=== PATIENT | female | born 1950 | race Caucasian/White ===

== ENCOUNTER → 2018-01-01 | Outpatient (CLI) | payer MEDICARE ==
--- NOTE | 2018-01-01 15:04 | Diagnostic Imaging Report ---
INDICATION: Pelvic pain. TECHNIQUE: Multiple Real-time grayscale images were obtained over the pelvis in Various projections transabdominally. COMPARISON: No prior studies available for comparison. FINDINGS: The uterus measures 6.5 x 3.4 x 2.8 cm. The endometrium is 3 mm in thickness. No uterine mass is detected. The ovaries were not visualized. No adnexal mass or free fluid is seen. IMPRESSION: Nonvisualized ovaries. No other significant abnormality is seen. Dictated by: Dictated on workstation # [id number]
== END ==
LOC: RAD 13:02
PROVIDERS: ATTEND Obstetrics & Gynecology
DX: R10.2 Pelvic and perineal pain (principal)
CPT/HCPCS: 76830; 76856

== ENCOUNTER 2018-02-04 05:34 | Outpatient (CLI) | payer MEDICARE ==
[~2018-02-04] VITALS: Ht 152.4 cm; Wt 69.4 kg
[2018-02-04] MEDS ORDERED: SERT100T8 PO (15:11)
[2018-02-04] MEDS ORDERED: BACL10TA PO (15:16)
[2018-02-04] MEDS ORDERED: LOVA20TA2 PO (15:16)
[2018-02-04] MEDS ORDERED: ALPR2TAB2 PO (15:16)
[2018-02-04] MEDS ORDERED: GABA600T PO (15:16)
== END 2018-02-04 15:17 ==
LOC: PREOP 05:34
PROVIDERS: ATTEND Surgery
DX: Z01.818 Encounter for other preprocedural examination (principal); R19.4 Change in bowel habit

== ENCOUNTER 2018-02-11 07:33 | Day surgery (SDC) | payer MEDICARE ==
[~2018-02-11] VITALS: Ht 152.4 cm; Wt 69.4 kg
[~2018-02-11 07:33] MED LIST: ALPR2TAB2 PO; BACL10TA PO; GABA600T PO; LOVA20TA2 PO; SERT100T8 PO
--- OUTSIDE RECORDS SUMMARY | 2018-02-11 07:36 | XMS REPORT ---
Author MARY JO Avila [facility] eClinicalWorks Address Unknown Phone Unavailable Care Team Providers Care Head Of Digital Advertising & Integration Name Role Phone MARY JO SALVADOR CP Unavailable Allergies, Adverse Reactions, Alerts Substance Reaction Event Type Tramadol HCl Info Not Available Drug Allergy Percocet Info Not Available Drug Allergy Morphine Sulfate Info Not Available Drug Allergy Hydrocodone-Acetaminophen Info Not Available Drug Allergy Fentanyl Info Not Available Drug Allergy Demerol Info Not Available Drug Allergy Problems Problem Type Condition Code Onset Dates Condition Status Assessment Neuropathy G62.9 Active Problem Neuropathy G62.9 Active Problem Depression F32.9 Active Assessment Arthritis M19.90 Active Assessment Anxiety F41.9 Active Problem Mixed hyperlipidemia E78.2 Active Problem Gastroesophageal reflux disease with esophagitis K21.0 Active Problem Arthritis M19.90 Active Problem Anxiety F41.9 Active Problem Lumbar disc disease M51.9 Active Problem Slow transit constipation K59.01 Active Problem Back pain M54.9 Active Medications Medication Code System Code Instructions Start Date End Date Status Dosage Zoloft [facility] 48959262217 100 MG Orally Once a day 2 tablet Omeprazole [facility] [address]-51 20 mg Orally Once a day May 02, 2016 1 capsule Celebrex [facility] [address]-55 200 mg Orally Once a day Sep 28, 2016 1 capsule Lovastatin [facility] 98889155496 40 mg Orally Once a day 1 tablet with a meal Xanax [facility] [address]-23 2 MG Orally 2 times a day, prn anxiety 1 tablet Gabapentin [facility] [address]-47 600 MG Orally 4 times a day 1 tablet Procedures Procedure Coding System Code Date Office Visit, Est Pt., Level 3 CPT-4 91779 Sep 28, 2016 [facility] VISIT ESTABLISHED PATIENT CPT-4 G0467 Sep 28, 2016 Vital Signs Date/Time: Sep 28, 2016 Cardiac Monitoring Heart Rate 78 bpm Weight 147.5 lbs Height 60 in BMI 28.80 Index Blood Pressure Diastolic 80 mmHg Blood Pressure Systolic 110 mmHg Results No Known Results Summary Purpose eClinicalWorks Submission
--- OUTSIDE RECORDS SUMMARY | 2018-02-11 07:36 | XMS REPORT ---
Author Author MARY JO SALVADOR [facility] Address [address] [place] [address] Care Team Providers Care Rail Signal Mechanic Name Role Phone MARY JO SALVADOR Unavailable PROBLEMS Type Condition ICD9-CM Code [id number] Code Onset Dates Condition Status SNOMED Code Problem Back pain M54.9 Active 006088712 Problem Depression F32.9 Active 82585957 Problem Neuropathy G62.9 Active 314909064 Problem Lumbar disc disease M51.9 Active 21549382 Problem Cervical disc disease M50.90 Active 307963598 Problem Arthritis M19.90 Active 3112011 Problem Slow transit constipation K59.01 Active 56344658 Problem Anxiety F41.9 Active 74425291 Problem Gastroesophageal reflux disease with esophagitis K21.0 Active 865301367 Problem Mixed hyperlipidemia E78.2 Active 686967671 ALLERGIES Unknown Allergies SOCIAL HISTORY No smoking Hx information available PLAN OF CARE VITAL SIGNS MEDICATIONS Medication Instructions Dosage Frequency Start Date End Date Duration Status Xanax 2 MG Orally 2 times a day, prn anxiety 1 tablet Active RESULTS No Results PROCEDURES No Known procedures IMMUNIZATIONS No Known Immunizations
--- OUTSIDE RECORDS SUMMARY | 2018-02-11 07:36 | XMS REPORT ---
Author Author MARY JO SALVADOR Organization eClinicalWorks Address Unknown Phone Unavailable Care Team Providers Care Ticket Printer Name Role Phone MARY JO SALVADOR CP Unavailable Allergies No Known Allergies Problems Problem Type Condition Code Onset Dates Condition Status Problem Depression F32.9 Active Problem Gastroesophageal reflux disease with esophagitis K21.0 Active Problem Slow transit constipation K59.01 Active Problem Mixed hyperlipidemia E78.2 Active Problem Lumbar disc disease M51.9 Active Problem Neuropathy G62.9 Active Problem Back pain M54.9 Active Problem Anxiety F41.9 Active Medications Medication Code System Code Instructions Start Date End Date Status Dosage [facility] [address]-24 350 MG Orally Four times a day 1 tablet as needed Results No Known Results Summary Purpose eClinicalWorks Submission
--- OUTSIDE RECORDS SUMMARY | 2018-02-11 07:36 | XMS REPORT ---
Author Author MARY JO SALVADOR [facility] Address [address] [place] [address] Care Team Providers Care Quality Process Engineer Name Role Phone MARY JO SALVADOR Unavailable PROBLEMS Type Condition ICD9-CM Code [id number] Code Onset Dates Condition Status SNOMED Code Problem Back pain M54.9 Active 766369544 Problem Depression F32.9 Active 82614206 Problem Neuropathy G62.9 Active 260163842 Problem Lumbar disc disease M51.9 Active 00026788 Problem Cervical disc disease M50.90 Active 602414038 Problem Arthritis M19.90 Active 1182706 Problem Slow transit constipation K59.01 Active 05447103 Problem Anxiety F41.9 Active 66677113 Problem Gastroesophageal reflux disease with esophagitis K21.0 Active 866565636 Problem Mixed hyperlipidemia E78.2 Active 810443267 ALLERGIES No Information SOCIAL HISTORY Never Assessed PLAN OF CARE VITAL SIGNS MEDICATIONS Medication Instructions Dosage Frequency Start Date End Date Duration Status Hydrocodone-Acetaminophen 5-325 MG Orally every 6 hrs 1 tablet as needed 6h April, Active RESULTS No Results PROCEDURES No Known procedures IMMUNIZATIONS No Known Immunizations MEDICAL (GENERAL) HISTORY Type Description Date Medical History Hyperlipemia Medical History Anxiety Medical History Chronic pain Medical History HX: breast cancer Medical History Hx of hepatitis C Surgical History Spine surgery 1999 Surgical History Right breast removed 2007 Surgical History Left breast removed 2009 Hospitalization History suicide attempts 1969, 2006 Hospitalization History Surgeries Hospitalization History Child
--- OUTSIDE RECORDS SUMMARY | 2018-02-11 07:37 | XMS REPORT ---
Author CLAUDIA Chaudhary Organization eClinicalWorks Address Unknown Phone Unavailable Care Team Providers Care Contract Preparer Name Role Phone CLAUDIA WILHELM CP Unavailable Allergies No Known Allergies Problems Problem Type Condition Code Onset Dates Condition Status Problem Anxiety F41.9 Active Problem Lumbar disc disease M51.9 Active Problem Back pain M54.9 Active Assessment Depression F32.9 Active Problem Neuropathy G62.9 Active Problem Depression F32.9 Active Medications No Known Medications Procedures Procedure Coding System Code Date Psychotherapy, patient &/family, 30 minutes, established patient CPT-4 49946 March 20, 2016 [facility] VISIT MENTAL HEALTH ESTAB PT CPT-4 G0470 March 20, 2016 Results No Known Results Summary Purpose eClinicalWorks Submission
--- OUTSIDE RECORDS SUMMARY | 2018-02-11 07:37 | XMS REPORT ---
Author Author MARY JO SALVADOR [facility] Address [address] [place] [address] Care Team Providers Care Bindery Manager Name Role Phone MARY JO SALVADOR Unavailable PROBLEMS Type Condition ICD9-CM Code [id number] Code Onset Dates Condition Status SNOMED Code Problem Back pain M54.9 Active 524478555 Problem Depression F32.9 Active 72564724 Problem Neuropathy G62.9 Active 322244551 Problem Lumbar disc disease M51.9 Active 63274946 Problem Cervical disc disease M50.90 Active 397239709 Problem Arthritis M19.90 Active 7279272 Problem Slow transit constipation K59.01 Active 21965664 Problem Anxiety F41.9 Active 33513702 Problem Gastroesophageal reflux disease with esophagitis K21.0 Active 211314640 Problem Mixed hyperlipidemia E78.2 Active 783301320 ALLERGIES No Information SOCIAL HISTORY Never Assessed PLAN OF CARE VITAL SIGNS MEDICATIONS Medication Instructions Dosage Frequency Start Date End Date Duration Status Xanax 2 MG Orally 2 times a day 1 tablet 12h 30 days Active RESULTS No Results PROCEDURES No Known [...]
--- OUTSIDE RECORDS SUMMARY | 2018-02-11 07:37 | XMS REPORT ---
Author Author MARY JO SALVADOR [facility] Address [address] [place] [address] Care Team Providers Care Sr Account Executive Name Role Phone MARY JO SALVADOR Unavailable PROBLEMS Type Condition ICD9-CM Code [id number] Code Onset Dates Condition Status SNOMED Code Problem Back pain M54.9 Active 958577930 Problem Depression F32.9 Active 08589849 Problem Neuropathy G62.9 Active 849966784 Problem Lumbar disc disease M51.9 Active 02246157 Problem Cervical disc disease M50.90 Active 256358659 Problem Arthritis M19.90 Active 8011841 Problem Slow transit constipation K59.01 Active 99177862 Problem Anxiety F41.9 Active 08382266 Problem Gastroesophageal reflux disease with esophagitis K21.0 Active 245632089 Problem Mixed hyperlipidemia E78.2 Active 308687365 ALLERGIES No Information SOCIAL HISTORY Never Assessed PLAN OF CARE VITAL SIGNS MEDICATIONS Unknown Medications RESULTS No Results PROCEDURES No Known procedures [...]
--- OUTSIDE RECORDS SUMMARY | 2018-02-11 07:37 | XMS REPORT ---
Author Author MARY JO SALVADOR [facility] Address [address] [place] [address] Care Team Providers Care Mangle Press Catcher Name Role Phone MARY JO SALVADOR Unavailable PROBLEMS Type Condition ICD9-CM Code [id number] Code Onset Dates Condition Status SNOMED Code Problem Back pain M54.9 Active 794853188 Problem Depression F32.9 Active 58674928 Problem Neuropathy G62.9 Active 810594902 Problem Lumbar disc disease M51.9 Active 23989646 Problem Cervical disc disease M50.90 Active 126674541 Problem Arthritis M19.90 Active 1456120 Problem Slow transit constipation K59.01 Active 36004974 Problem Anxiety F41.9 Active 75192397 Problem Gastroesophageal reflux disease with esophagitis K21.0 Active 622609902 Problem Mixed hyperlipidemia E78.2 Active 512715428 ALLERGIES Substance Reaction Event Type Date Status Tramadol HCl Unknown Drug Allergy April, Active Percocet Unknown Drug Allergy April, Active Morphine Sulfate Unknown Drug Allergy April, Active Hydrocodone-Acetaminophen Unknown Drug Allergy April, Active Fentanyl Unknown Drug Allergy April, Active Demerol Unknown Drug Allergy April, Active SOCIAL HISTORY Never Assessed PLAN OF CARE Activity Details Follow Up Reg appt Reason: VITAL SIGNS Height 60 in 2017-04-11 Weight 156 lbs 2017-04-11 Temperature 98.2 degrees Fahrenheit 2017-04-11 Heart Rate 70 bpm 2017-04-11 Respiratory Rate 20 2017-04-11 BMI 30.46 kg/m2 2017-04-11 Blood pressure systolic 108 mmHg 2017-04-11 Blood pressure diastolic 72 mmHg 2017-04-11 MEDICATIONS Medication Instructions Dosage Frequency Start Date End Date Duration Status Zoloft 100 MG Orally Once a day 2 tablet 24h Active Lovastatin 40 mg Orally Once a day 1 tablet with a meal 24h Active Baclofen 10 mg Orally Three times a day 1 tablet with food or milk 8h Active Xanax 2 MG Orally 2 times a day 1 tablet 12h 30 days Active Celebrex 200 mg Orally Once a day 1 capsule 24h 28 Sep, 2016 Active Omeprazole 20 mg Orally Once a day 1 capsule 24h May, Active Gabapentin 600 MG Orally 4 times a day 1 tablet 6h Active RESULTS Name Result Date Reference Range Xray : Hip, Left 2 views (IN HOUSE) 2017-04-11 PROCEDURES Procedure Date Ordered Result Body Site X-RAY EXAM HIP UNI 2-3 VIEWS April 11, 2017 [facility] VISIT ESTABLISHED PATIENT April 11, 2017 IMMUNIZATIONS No Known Immunizations MEDICAL (GENERAL) HISTORY [...]
--- OUTSIDE RECORDS SUMMARY | 2018-02-11 07:37 | XMS REPORT ---
Author MARY JO Avila [facility] eClinicalWorks Address Unknown Phone Unavailable Care Team Providers Care Oracle Ascp Consultant Name Role Phone MARY JO SALVADOR CP [...] Condition Code Onset Dates Condition Status Assessment Lumbar disc disease M51.9 Active Problem Depression F32.9 Active Assessment Syncope, unspecified syncope type R55 Active Problem Gastroesophageal reflux disease with esophagitis K21.0 Active Problem Slow transit constipation K59.01 Active Problem Mixed hyperlipidemia E78.2 Active Problem Lumbar disc disease M51.9 Active Problem Neuropathy G62.9 Active Problem Back pain M54.9 Active Problem Anxiety F41.9 Active Assessment Slow transit constipation K59.01 Active Assessment Gastroesophageal reflux disease with esophagitis K21.0 Active Assessment Anxiety F41.9 Active Medications Medication Code System Code Instructions Start Date End Date Status Dosage Omeprazole [facility] [address]-81 20 mg Orally Once a day May 02, 2016 1 capsule Zoloft [facility] [address]-60 100 MG Orally Once a day 2 tablet Lovastatin [facility] [address]-00 40 mg Orally Once a day 1 tablet with a meal Soma [facility] [address]-77 350 MG Orally Four times a day 1 tablet as needed Gabapentin [facility] [address]-92 600 MG Orally 4 times a day 1 tablet Xanax [facility] [address]-95 2 MG Orally 2 times a day, prn anxiety 1 tablet Procedures Procedure Coding System Code Date VENIPUNCT, ROUTINE* CPT-4 01499 Jul 16, 2016 [facility] VISIT ESTABLISHED PATIENT CPT-4 G0467 Jul 16, 2016 LAB NOT BILLED BY [facility] CPT-4 NOBLL Jul 16, 2016 Office Visit, Est Pt., Level 4 CPT-4 76795 Jul 16, 2016 Vital Signs Date/Time: Jul 16, 2016 Cardiac Monitoring Heart Rate 78 bpm Weight 145.2 lbs Height 60 in BMI 28.35 Index Blood Pressure Diastolic 74 mmHg Blood Pressure Systolic 114 mmHg Results No Known Results Summary Purpose eClinicalWorks Submission
--- OUTSIDE RECORDS SUMMARY | 2018-02-11 07:37 | XMS REPORT ---
Author Author MARY JO SALVADOR [facility] Address [address] [place] [address] Care Team Providers Care Spring Upholsterer Name Role Phone MARY JO SALVADOR Unavailable PROBLEMS Type Condition ICD9-CM Code [id number] Code Onset Dates Condition Status SNOMED Code Problem Back pain M54.9 Active 759070421 Problem Depression F32.9 Active 62707294 Problem Neuropathy G62.9 Active 959054053 Problem Lumbar disc disease M51.9 Active 53453899 Problem Cervical disc disease M50.90 Active 781355963 Problem Arthritis M19.90 Active 9469382 Problem Slow transit constipation K59.01 Active 73906484 Problem Anxiety F41.9 Active 94809739 Problem Gastroesophageal reflux disease with esophagitis K21.0 Active 764603605 Problem Mixed hyperlipidemia E78.2 Active 790371598 ALLERGIES Substance Reaction Event Type Date Status Tramadol HCl Unknown Drug Allergy Jan, Active Percocet Unknown Drug Allergy Jan, Active Morphine Sulfate Unknown Drug Allergy Jan, Active Hydrocodone-Acetaminophen Unknown Drug Allergy Jan, Active Fentanyl Unknown Drug Allergy Jan, Active Demerol Unknown Drug Allergy Jan, Active SOCIAL HISTORY Never Assessed PLAN OF CARE Activity Details Follow Up 3 Months Reason: VITAL SIGNS Height 60 in 2017-01-11 Weight 150 lbs 2017-01-11 Temperature 98.1 degrees Fahrenheit 2017-01-11 Heart Rate 78 bpm 2017-01-11 Respiratory Rate 18 2017-01-11 BMI 29.29 kg/m2 2017-01-11 Blood pressure systolic 96 mmHg 2017-01-11 Blood pressure diastolic 66 mmHg 2017-01-11 MEDICATIONS Medication Instructions Dosage Frequency Start Date End Date Duration Status Zoloft 100 MG Orally Once a day 2 tablet 24h Active Gabapentin 600 MG Orally 4 times a day 1 tablet 6h Active Lovastatin 40 mg Orally Once a day 1 tablet with a meal 24h Active Omeprazole 20 mg Orally Once a day 1 capsule 24h May, Active Celebrex 200 mg Orally Once a day 1 capsule 24h Sep, Active Baclofen 10 mg Orally Three times a day 1 tablet with food or milk 8h Active Xanax 2 MG Orally 2 times a day, prn anxiety 1 tablet Active RESULTS No Results PROCEDURES Procedure Date Ordered Result Body Site [facility] VISIT ESTABLISHED PATIENT Jan 11, 2017 IMMUNIZATIONS No Known Immunizations MEDICAL [...]
[2018-02-11] MEDS ORDERED: LACTATED RINGERS 1,000 ML IV ONE (07:44)
[2018-02-11] MEDS ORDERED: PROPOFOL INJECTION 50 ML IV ONE ×2 (07:54→09:27)
[2018-02-11] MEDS ORDERED: MIDAZOLAM 2 MG/2 ML (VERSED) VIAL ONE (07:54)
[2018-02-11] MEDS ORDERED: HURRICAINE EXT TUBE (BENZOCAINE) XX PRN (08:00)
[2018-02-11 08:02] VITALS: BP 125/73
--- NOTE | 2018-02-11 08:30 | Progress Note-Pre Operative ---
Pre-Operative Progress Note H&P Reviewed The H&P was reviewed, patient examined and no changes noted. Date Seen by Provider: Feb 11, 2018 Time Seen by Provider: 08:29 Date H&P Reviewed: Feb 11, 2018 Time H&P Reviewed: 08:29 Pre-Operative Diagnosis: gerd, chronic costipation, pelvic pain CECY TREVIZO DO Feb 11, 2018 08:30
--- NOTE | 2018-02-11 10:00 | Progress Note-Post Operative ---
Post-Operative Progess Note Surgeon (s)/Environmental Sciences Professor (s) Surgeon CECY TREVIZO DO Environmental Sciences Professor: na Pre-Operative Diagnosis gerd, chronic costipation, pelvic pain Post-Operative Diagnosis gastritis c ulcer hiatal hernia, normal colon Procedure & Operative Findings Date of Procedure 02/11/18 Procedure Performed/Findings egd c biopsies, colonoscopy Anesthesia Type per berry picker machine operator Estimated Blood Loss Estimated blood loss (mL): none Specimens/Packing Specimens Removed antrum, body, ge junction CECY TREVIZO DO Feb 11, 2018 10:00
[2018-02-11] MEDS ORDERED: SUCR1TAB36 PO (10:01)
[2018-02-11] MEDS ORDERED: PANT40TA2 PO (10:01)
--- NOTE | 2018-02-11 10:02 | Discharge Inst-Simple/Standard ---
Discharge Inst-Standard Discharge Medications New, Converted or Re-Newed RX: RX on Chart Patient Instructions/Follow Up Plan of Care/Instructions/FU: 2 weeks Dorian Activity as Tolerated: Yes Discharge Diet: Regular Diet (high fiber) CECY TREVIZO DO Feb 11, 2018 10:02
--- NOTE | 2018-02-11 10:15 | Anesthesia-General Post-Op ---
MAC Patient Condition Mental Status/LOC: Same as Preop Cardiovascular: Satisfactory Nausea/Vomiting: Absent Respiratory: Satisfactory Pain: Controlled Complications: Absent Post Op Complications Complications None Follow Up Care/Instructions Patient Instructions None needed. Anesthesiology Discharge Order Discharge Order Patient is doing well, no complaints, stable vital signs, no apparent adverse anesthesia problems. No complications reported per nursing. CATHY LEWIS CRNA Feb 11, 2018 10:15
[2018-02-11 10:25] VITALS: BP 118/64
[2018-02-11 10:55] VITALS: BP 126/65
[2018-02-11 11:00] VITALS: BP 126/65
[2018-02-11] MEDS ORDERED: LACTATED RINGERS 1,000 ML IV SCH (11:15)
--- NOTE | 2018-02-11 14:58 | OPERATIVE REPORT ---
DATE OF SERVICE: 02/11/2018 PREOPERATIVE DIAGNOSES: Gastroesophageal reflux disease, chronic constipation, pelvic pain. POSTOPERATIVE DIAGNOSES: Gastritis with ulcer, hiatal hernia, normal colon. PROCEDURE: EGD with biopsies, colonoscopy. ANESTHESIA: Per BRIQUETTING MACHINE OPERATOR. SURGEON: Cecy Alarcon DO. ESTIMATED BLOOD LOSS: None. SPECIMENS: Antrum, body, GE junction. INDICATIONS: The patient is a 67-year-old female who has been having some gastroesophageal reflux disease, chronic constipation, pelvic pain. She was recommended to have EGD colonoscopy for further evaluation. She understands risks and benefits and wished to proceed. Consent was signed on the chart. DESCRIPTION OF PROCEDURE: The patient was taken to the endoscopy suite, placed in left lateral recumbent position. Timeout was performed. Scope was inserted in the mouth, down the esophagus, stomach and into the duodenum without difficulty. There were no polyps, masses or ulcerations within the duodenum. Scope was slowly retracted back into the stomach where it was further insufflated. Some erythematous changes. In the antrum, a small ulcer that appears to be healing present. Biopsy of this area was obtained. Scope was then retroflexed that noting some inflammation around the body and hiatal hernia. Biopsy of the body was obtained. Scope was then returned to its normal position, slowly withdrawn to the distal esophagus, which had a fairly normal appearance. There were no polyps, masses or ulcerations. Biopsy of the GE junction was obtained. Scope was then slowly retracted back to completely remove, noting no other pathology. Digital rectal exam was performed. There were no palpable polyps, masses or ulcerations. The scope was inserted in the rectum and advanced all the way to the cecum with minimal difficulty. Prep was adequate. Scope was then slowly retracted back. There were no polyps, masses or ulcerations in the cecum, ascending, transverse, descending and sigmoid colon. Once in the rectum, scope was also retroflexed noting no other pathology. Scope was returned to its normal position, slowly withdrawn until completely removed. The patient tolerated the procedure well without any complications and she was taken to the recovery room in stable condition. RECOMMENDATIONS: The patient was started on Protonix 40 mg daily and Carafate 1 gram four times a day. The patient will need repeat colonoscopy in 10 years unless family history of colon cancer, history of polyps, which would then be 5 years. If she has any problems prior to that, she should be reevaluated at that time. The patient will follow up in 2 weeks to discuss pathology results and see how her symptoms are doing. The patient also recommended high fiber diet. Job ID: [id number] DocumentID: [id number] Dictated Date: 02/11/2018 10:09:36 Trials Manager Date: 02/11/2018 14:57:59 Dictated By: CECY ALARCON DO
== END 2018-02-11 11:00 | disposition home or self-care (01) ==
LOC: ENDO 07:33
PROVIDERS: ATTEND Surgery
DX: K29.70 Gastritis, unspecified, without bleeding (principal); K25.9 Gastric ulcer, unspecified as acute or chronic, without hemorrhage or perforation; K21.9 Gastro-esophageal reflux disease without esophagitis; K44.9 Diaphragmatic hernia without obstruction or gangrene; K59.09 Other constipation; Z86.010 Personal history of colon polyps; B19.20 Unspecified viral hepatitis C without hepatic coma; F31.9 Bipolar disorder, unspecified; F41.9 Anxiety disorder, unspecified; Z85.3 Personal history of malignant neoplasm of breast; Z87.891 Personal history of nicotine dependence; Z79.82 Long term (current) use of aspirin; Z79.899 Other long term (current) drug therapy; Z90.13 Acquired absence of bilateral breasts and nipples

== ENCOUNTER → 2019-03-24 | Outpatient (CLI) | payer MEDICARE ==
[~2019-03-24] MED LIST changes: +PANT40TA2 PO; +SUCR1TAB36 PO
--- NOTE | 2019-03-24 10:23 | Diagnostic Imaging Report ---
INDICATION: Screening for osteoporosis COMPARISON: None FINDINGS: The bone mineral density of the hips and spine was measured. There are no prior studies available for comparison. The T score for the spine is -1.1. AP Spine L1-L4: [BMD (g/cm2): 1.063] [T-Score: -1.1] [Z-Score: 0.2] [BMD Previous: NA] [BMD % Change: NA] The T score for the left femoral neck is -2.2 and for the right femoral neck -1.9. The total T score for the right hip is -2.4. All of these values fall within the range of osteopenia. However the T score for the left hip is -2.5 and this does indicate osteoporosis. LT Hip Neck: [BMD (g/cm2): .762] [T-Score: -2.0] [Z-Score: -0.6] LT Hip Total: [BMD (g/cm2):.699] [T-Score:-2.5] [Z-Score: -1.3] [BMD Previous: NA] [BMD % Change: NA] RT Hip Neck: [BMD (g/cm2):.773] [T-Score:-1.9] [Z-Score:-0.5] RT Hip Total: [BMD (g/cm2):.710] [T-score:-2.4] [Z-Score:-1.2] [BMD Previous:NA] [BMD % Change:NA] *Indicates significant change from prior examination based on 95% confidence level. World Health Organization criteria for BMD interpretation classify patients as Normal (T-score at or above -1.0), Osteopenic (T-score between -1.0 and -2.5) or Osteoporotic (T-score at or below -2.5). LIMITATIONS AND MODIFICATION: None. FRACTURE RISK (FRAX SCORE): The ten year probability of (%): Major Osteoporotic Fracture: [11.4] Hip Fracture: [2.9] IMPRESSION: 1. There is osteopenia of the spine and right hip but there is osteoporosis of the left hip. 2. 3. See below National Osteoporosis Foundation guidelines on when to potentially initiate pharmacologic therapy. Based on the National Osteoporosis Foundation Guidelines, pharmacologic treatment should be initiated in any of the following, unless clinical conditions suggest otherwise: * Any patient with prior fragility fracture of the hip or vertebrae. A spine fracture indicates 5X risk for subsequent spine fracture and 2X risk for subsequent hip fracture. * Osteoporosis (T-score <-2.5). * Postmenopausal women and men age 50 and older with low bone mass/osteopenia (T-score between -1.0 and -2.5) by DXA and 10-year major osteoporotic fracture greater than 20% or a 10-year probability of hip fracture greater than 3%. These fracture risks are supplied above in the FRAX score, if applicable. * Clinician judgement and/or patient preferences may indicate treatment for people with 10-year fracture probabilities above or below these levels. Dictated by: Dictated on workstation # [id number]
== END ==
LOC: RAD 07:35
PROVIDERS: ATTEND Internal Medicine
DX: Z13.820 Encounter for screening for osteoporosis (principal); M85.89 Other specified disorders of bone density and structure, multiple sites; M81.0 Age-related osteoporosis without current pathological fracture
CPT/HCPCS: 77080

== ENCOUNTER 2019-09-25 12:44 | Inpatient (IN) | payer MEDICARE ==
[2019-09-25] VITALS (14 sets, daily range): BP systolic 118–177; BP diastolic 53–94
[~2019-09-25] VITALS: Ht 160 cm; Wt 68.2 kg
[2019-09-25] MEDS ORDERED: ETOMIDATE IV SOLN 20 MG/10 ML VIAL IV ONE (12:47)
[2019-09-25] MEDS ORDERED: MIDAZOLAM 5 MG/5 ML (VERSED) VIAL IJ ONE (12:47)
[2019-09-25] MEDS ORDERED: fentaNYL INJECTION 100 MCG/2 ML AMP INJ ONE (12:47)
[2019-09-25] MEDS ORDERED: SUCCINYLCHOLINE INJ 100 MG/5 ML SYR INJ ONE (12:47)
--- NOTE | 2019-09-25 12:50 | NUR ---
1250- PT PREOXYGENATED BY BVM 1252- ETOMIDATE 10MG ADMINISTERED 1252- SUCCS 100MG ADMINISTERED 1253- FIRST ATTEMPT AT INTUBATION 1254- 7.5 ETT PLACED, 24 @ THE TEETH, POSITIVE COLOR CHANGE. 1257- VERSED 2.5MG ADMINISTERED 1257- FENTANYL 50MCG ADMINISTERED 1300- 16FR OG INSERTED 1303- 50MG ROCURONIUM ADMINISTERED 1304- 2.5 MG VERSED ADMINISTERED
--- NOTE | 2019-09-25 13:02 | ED Neurological Problem ---
General Chief Complaint: Unresponsive Stated Complaint: UNRESPONSIVE Nursing Triage Note: PT TO [facility] BY [facility] WITH COMPLAINT OF UNRESPONSIVENESS. PT WAS FOUND AT HOME BY SISTER. PT WAS 76% ON RA WHEN FOUND. UNKNOWN DOWNTIME. Nursing Sepsis Screen: No Definite Risk Source: patient, EMS Exam Limitations: clinical condition (JAYLA COSTA MD) History of Present Illness Date Seen by Provider: Sep 25, 2019 Time Seen by Provider: 12:48 Initial Comments Here by EMS with report of being found unresponsive at home by her sister. Rep ort of the field noted patient to have O2 sat of 76%. EMS did place the patient on high flow mask and noted snoring respirations. They did give Narcan 2 mg IV which had no effect on the patient. Apparently the patient was able tell her sister that she fell at some point and stated her chest hurt but this was all in simple words and there is no verification that she fell although it was reported that she was found on the floor early this morning by her sister 8 AM. EMS found her in bed. Snoring respirations continue although she is maintaining O2 sats are raised and on high flow mask. No obvious findings of external injury and patient is not answering questions. She does not respond to sternal rub. Timing/Duration: unknown, other (symptoms noted at 8 AM. Last known well time was last night.) Severity: severe Associated Symptoms: other (unresponsive) (JAYLA COSTA MD) Allergies and Home Medications Allergies Coded Allergies: hydrocodone (Verified Allergy, Unknown, HALLUCINATIONS, 02/06/18) morphine (Verified Allergy, Unknown, MIGRAINE, 02/06/18) tramadol (Verified Allergy, Unknown, HALLUCINATIONS, 02/06/18) Home Medications Alprazolam 2 Mg Tablet, 2 MG PO BID, (Reported) Baclofen 10 Mg Tablet, 10 MG PO TID, (Reported) Gabapentin 600 Mg Tablet, 600 MG PO QID, (Reported) Lovastatin 20 Mg Tablet, 20 MG PO HS, (Reported) Pantoprazole Sodium 40 Mg Tablet.dr, 40 MG PO DAILY Prescribed by: CECY TREVIZO on 02/11/18 1001 Sertraline HCl 100 Mg Tablet, 200 MG PO DAILY, (Reported) take 2 (100mg) tabs Sucralfate 1 Gm Tablet, 1 GM PO QID Prescribed by: CECY TREVIZO on 3/13/18 1001 Patient Home Medication List Home Medication List Reviewed: Yes (JAYLA COSTA MD) Review of Systems Review of Systems Constitutional: see HPI Complete review of systems due to altered mental status (JAYLA COSTA MD) Past Xigkifi-Stssfr-Tazzrd Hx Past Med/Social Hx: Reviewed Nursing Past Med/Soc Hx (JAYLA COSTA MD) Patient Social History Smoking Status: Former Smoker Type Used: Cigarettes Former Smoker, Quit: Oct 02, 2017 Recent Foreign Travel: No Contact w/Someone Who Travel: No Recent Infectious Disease Expo: No Recent Hopitalizations: No (JAYLA COSTA MD) Immunizations Up To Date Date of Influenza Vaccine: Aug 07, 2017 (JAYLA COSTA MD) Seasonal Allergies Seasonal Allergies: Yes (JAYLA COSTA MD) Past Medical History Surgeries: Yes Bladder Surgery, Tubal Ligation Neurological: Yes Headaches /Migraines Gastrointestinal: Yes Gastroesophageal Reflux, Chronic Constipation, Hepatitis Musculoskeletal: Yes Arthritis, Chronic Back Pain Cancer: Yes Breast Did You Recieve Any Treatments: Yes What Type of Treatment Did You: Chemotherapy, Surgical Intervention Psychosocial: Yes Anxiety, Bipolar (JAYLA COSTA MD) Family Medical History Reviewed Nursing Family Hx (JAYLA COSTA MD) History from records review as patient unable to provide information due to unresponsive (JAYLA COSTA MD) Physical Exam Vital Signs Vital Signs - First Documented 09/25/19 12:44 Temp 35.4 Pulse 60 Resp 9 B/P (MAP) 109/86 (94) Pulse Ox 99 O2 Delivery Non Rebreather O2 Flow Rate 15.00 (MILY VELAZQUEZ APRN) Vital Signs Capillary Refill : Less Than 3 Seconds (JAYLA COSTA MD) Height, Weight, BMI Height: 5'0.00" Weight: 153lbs. 0.0oz. 69.823151zs; 26.00 BMI Method: General Appearance: WD/WN, mild distress HEENT: PERRL/EOMI, pharynx normal, other (tongue protruding) Neck: full range of motion, supple Respiratory: respiratory distress, crackles (few bibasilar), other (snoring respirations) Cardiovascular: regular rate, rhythm, no murmur Peripheral Pulses: 2+ Dorsalis Pedis (R), 2+ Left Dors-Pedis (L), 2+ Radial Pulses (R), 2+ Radial Pulses (L) Gastrointestinal: No soft; no organomegaly, no pulsatile mass, distended; No guarding, No rebound Extremities: no pedal edema, pelvis stable Neurologic/Psychiatric: other (unresponsive and does not answer questions. GCS 3.) Crainal Nerves: other (does not answer questions. No obvious droop noted. Tongue is protruding) Coordination/Gait: other (Unable to determine due to unresponsiveness) Skin: normal color, cool (JAYLA COSTA MD) Procedures/Interventions Date of ETT Placement: Sep 25, 2019 Time of ETT Placement: 12:54 Intubation Method: orotracheal Tube Size: 7.5 Medications: Etomidate (10 mg), Succinylcholine (100 mg) Positive End Tide CO2: Yes Breath Sounds after Intubation: bilateral-equal Intubation Complications: no complications Post Intubation Xray: Yes Intubated via video scope times one attempt without difficulty. 7.5 to placed to 24 cm at the lips. Postintubation chest x-ray done. Tubes secured. No complications. (JAYLA COSTA MD) Progress/Results/Core Measures Results/Orders Lab Results Laboratory Tests Test 09/25/19 12:50 09/25/19 12:56 09/25/19 13:08 Range/Units White Blood Count 5.7 4.3-11.0 10^3/uL Red Blood Count 4.26 L 4.35-5.85 10^6/uL Hemoglobin 13.0 11.5-16.0 G/DL Hematocrit 41 35-52 % Mean Corpuscular Volume 96 80-99 FL Mean Corpuscular Hemoglobin 31 25-34 PG Mean Corpuscular Hemoglobin Concent 32 32-36 G/DL Red Cell Distribution Width 14.3 10.0-14.5 % Platelet Count 235 130-400 10^3/uL Mean Platelet Volume 10.7 H 7.4-10.4 FL Neutrophils (%) (Auto) 63 42-75 % Lymphocytes (%) (Auto) 28 12-44 % Monocytes (%) (Auto) 7 0-12 % Eosinophils (%) (Auto) 2 0-10 % Basophils (%) (Auto) 1 0-10 % Neutrophils # (Auto) 3.6 1.8-7.8 X 10^3 Lymphocytes # (Auto) 1.6 1.0-4.0 X 10^3 Monocytes # (Auto) 0.4 0.0-1.0 X 10^3 Eosinophils # (Auto) 0.1 0.0-0.3 10^3/uL Basophils # (Auto) 0.0 0.0-0.1 10^3/uL Prothrombin Time 12.5 12.2-14.7 SEC INR Comment 0.9 0.8-1.4 Activated Partial Thromboplast Time 28 24-35 SEC D-Dimer 1.83 H 0.00-0.49 UG/ML Blood Gas Puncture Site RR Blood Gas Patient Temperature 35.4 Arterial Blood pH 7.26 *L 7.37-7.43 Arterial Blood Partial Pressure CO2 61 H 35-45 MMHG Arterial Blood Partial Pressure O2 74 L 79-93 MMHG Arterial Blood HCO3 27 23-27 MMOL/L Arterial Blood Total CO2 29.4 21.0-31.0 MMOL/L Arterial Blood Oxygen Saturation 92 L 94-100 % Arterial Blood Base Excess 0.7 -2.5-2.5 MMOL/L Josiah Test YES-POS Blood Gas Ventilator Setting NO Blood Gas Inspired Oxygen 15L (MILY VELAZQUEZ APRN) My Orders Orders - MILY VELAZQUEZ APRN Propofol Injection (Diprivan Injection) (09/25/19 13:15) Propofol Drip (Icu) (Diprivan Drip (Icu) (09/25/19 13:30) (MILY VELAZQUEZ APRN) Vital Signs/I&O 09/25/19 09/25/19 12:44 12:44 Temp 35.4 Pulse 60 Resp 9 B/P (MAP) 109/86 (94) Pulse Ox 99 100 O2 Delivery Non Rebreather Non Rebreather O2 Flow Rate 15.00 15.00 (MILY VELAZQUEZ APRN) Blood Pressure Mean: 94 iStat Bedside Lab Testing Sodium (Na): 143.00 Potassium (K): 5.30 Chloride (CI): 109.00 TCO2: 26.00 Glucose (Glu): 104.00 Urea Nitrogen (BUN)/Urea: 16.00 Creatinine (Crea): 0.70 Anion Gap*: 13.00 (JAYLA COSTA MD) Progress Progress Note : Progress Note Seen and evaluated on arrival by EMS. Concerns about airway protection due to GCS being 3 and start respirations. Elected to emergently elevation. This was accomplished by video scope under my direct supervision. Postintubation sedation with Versed 2.5 mg IV and fentanyl 50 g IV with anticipation of the program drip. Stroke order set initiated given unknown reason of unresponsiveness. We will get CT of the head and CT angiogram of the head and neck. I-STAT done and shows normal creatinine and otherwise normal chemistries. Patient has a port and I will be accessed. She has IV site for the angiogram testing. Monitor patient. 1438: Remains stable on different and drip. CT head and CT angiogram negative. Very likely that this is overdose of her benzodiazepine. I have discussed the case with Dr. Iglesias and we will admit the patient for respiratory failure to the ICU. We did discuss the x-ray results. May be from hyperventilation earlier. No indication of pneumonia labs are otherwise. He will continue to follow and adjust treatment as needed admit ICU, critical condition but stable. (JAYLA COSTA MD) Initial ECG Impression Date: Sep 25, 2019 Initial ECG Impression Time: 15:17 Initial ECG Rate: 64 Initial ECG Rhythm: Normal Sinus Comment Sinus rhythm with right ventricular hypertrophy. Normal axis. No evidence of ST elevation SD. No previous available for comparison. Interpreted by me. (JAYLA COSTA MD) Diagnostic Imaging Diagonstic Imaging: Xray Plain Films/CT/US/NM/MRI: chest Comments [facility]. [place], [place] NAME: MARGY DONALD [facility] REC#: [id number] PT STATUS: REG ER : 1950 PHYSICIAN: JAYLA COSTA MD ADMIT DATE: 09/25/19/ER Draft Date of Exam:09/25/19 CHEST 1 VIEW, AP/PA ONLY INDICATION: Unresponsive. Hypoxia. COMPARISON: None. FINDINGS: Single frontal view of the chest demonstrates indwelling endotracheal tube with tip at the lower level of the clavicular heads. Gastric tube is seen coiled in the stomach. Left-sided subclavian Port-A-Cath is also present with tip in the high SVC likely at the junction of the innominate veins. Normal heart size and pulmonary vascularity. Evaluation of the lungs demonstrates diffuse coarse prominence of the interstitium, which may be on a chronic basis. There is however no prior available for comparison. There is no focal alveolar consolidation, large effusion, nor pneumothorax. The visualized osseous structures show no acute abnormalities. IMPRESSION: 1. Diffuse coarse prominence of the interstitium, which again may be on a chronic basis, although there is no prior available for comparison. Underlying interstitial edema or pneumonia cannot be entirely excluded. 2. Lines and tubes as above. Dictated on workstation # [id number] Dict: 09/25/19 1329 Trans: 09/25/19 1331 [facility] [id number] Interpreted by: HERNAN GONZALEZ MD Electronically signed by: Diagonstic Imaging: CT Plain Films/CT/US/NM/MRI: head Comments [facility] [place] NAME: MARGY DONALD [facility] REC#: [id number] PT STATUS: REG ER : 1950 PHYSICIAN: JAYLA COSTA MD ADMIT DATE: 09/25/19/ER Draft Date of Exam:09/25/19 CT HEAD WO-R/O STROKE PROCEDURE: CT head wo r/o stroke. TECHNIQUE: Multiple contiguous axial images were obtained through the brain without the use of intravenous contrast. Auto Exposure Controls were utilized during the CT exam to meet ALARA standards for radiation dose reduction. INDICATION: Unresponsive. COMPARISON: No prior studies are available for comparison. FINDINGS: Ventricles and sulci are somewhat prominent consistent with mild cerebral atrophy. No sulcal effacement or midline shift is seen. No acute intra-axial or extra-axial hemorrhage is detected. Cisterns are patent. Visualized paranasal sinuses appear clear. IMPRESSION: Age-related atrophy. No acute intracranial process is detected. Results were discussed with Dr. Costa of the emergency department prior to this dictation. Dictated on workstation # [id number] Dict: 09/25/19 1339 Trans: 09/25/19 1343 [facility] [id number] Interpreted by: TINO GROVER MD Electronically signed by: Reviewed: Discussed w/Radiologist Diagonstic Imaging: CT Plain Films/CT/US/NM/MRI: other Comments [facility]. [place], [place] NAME: MARGY DONALD [facility] REC#: [id number] PT STATUS: REG ER : 1950 PHYSICIAN: JAYLA COSTA MD ADMIT DATE: 09/25/19/ER Draft Date of Exam:09/25/19 CT ANGIO HEAD/NECK PROCEDURE: CT angiography of the head and CT angiography of the neck with and without contrast. TECHNIQUE: Contiguous noncontrast images were obtained from the skull base through the vertex. After intravenous contrast administration, helical CT angiography of the neck was performed. Source data was reformatted into 3D MIP projections. Delayed post contrast acquisition was also obtained. Auto Exposure Controls were utilized during the CT exam to meet ALARA standards for radiation dose reduction. INDICATION: Stroke, unresponsive. FINDINGS: Delayed postcontrast images are unremarkable. There is a normal three-vessel branching pattern to the aortic arch. The common carotid arteries appear to be patent. There is some plaquing at the carotid bifurcations bilaterally. Both internal carotid arteries are tortuous but appear to be patent. No filling defects or thromboembolism is detected. There appears to be perfusion within bilateral middle cerebral and anterior cerebral arteries. Bilateral posterior cerebral arteries are patent. There is a origin to the right posterior cerebral artery, normal variant. Basilar artery is patent. The vertebral arteries appear to be codominant. Patient is intubated. There is some interstitial scarring in bilateral lung apices. IMPRESSION: Unremarkable CT angiogram of the head and neck. No thromboemboli are detected. Dictated on workstation # [id number] Dict: 09/25/19 1358 Trans: 09/25/19 1415 [id number] Interpreted by: TINO GROVER MD Electronically signed by: Reviewed: Discussed w/Radiologist (JAYLA COSTA MD) Departure Communication (Admissions) Time/Spoke to Admitting Phy: 14:38 (JAYLA COSTA MD) 1327-patient's niece is here, reports that she's been having repetitive question asking for the past few days, seemingly confused more than usual. Her medications include gabapentin, baclofen, and Xanax 2 mg tablets twice a day. Niece states that "they cut her off of Xanax and she is on her last prescription". She also reports that she has fewer Xanax pills in her bottle than she should have. Niece is concerned that she may have had a stroke or overdosed on her medication. The patient has not been suicidal in many years And thinks that if she did overdose it was unintentional. (MILY VELAZQUEZ APRN) Impression Primary Impression: Acute respiratory failure Qualified Codes: J96.01 - Acute respiratory failure with hypoxia Additional Impressions: Unresponsive Benzodiazepine overdose of undetermined intent Qualified Codes: T42.4X4A - Poisoning by benzodiazepines, undetermined, ini tial encounter Disposition: ADMITTED INPATIENT Condition: Critical Admissions Decision to Admit Reason: Admit from ER (General) Decision to Admit/Date: Sep 25, 2019 Time/Decision to Admit Time: 14:38 (JAYLA COSTA MD) Departure-Patient Inst. Referrals: MARY JO SALVADOR MD (PCP) Primary Care Physician [facility] (Family) Primary Care Physician JAYLA COSTA MD Sep 25, 2019 13:02 MILY VELAZQUEZ APRN Sep 25, 2019 13:29
[2019-09-25 13:04] LABS: ABG BASE EXCESS 0.7 MMOL/L (-2.5-2.5); ABG OXYGEN SATURATION 92 % (94-100); ABG PCO2 61 MMHG (35-45); ABG PO2 74 MMHG (79-93); ABG TCO2 29.4 MMOL/L (21.0-31.0)
[2019-09-25 13:05] LABS: ALLENS TEST YES-POS; INSPIRED O2 15L; PATIENT TEMP 35.4; VENTILATOR NO
[2019-09-25] MEDS ORDERED: PROPOFOL DRIP (ICU) 100 ML IV ONE (13:05)
[2019-09-25 13:06] LABS: ABG PH 7.26 (7.37-7.43)
[2019-09-25] MEDS ORDERED: PROPOFOL INJECTION 50 ML IV SCH (13:15)
[2019-09-25 13:16] LABS: BILIRUBIN,URINE NEGATIVE (NEGATIVE); CLARITY,URINE CLEAR; COLOR,URINE YELLOW; GLUCOSE, URINE (UA) NEGATIVE (NEGATIVE); KETONES,URINE NEGATIVE (NEGATIVE); LEUKOCYTE ESTERASE ,URINE NEGATIVE (NEGATIVE); NITRITE,URINE NEGATIVE (NEGATIVE); PH,URINE 6 (5-9); PROTEIN,URINE NEGATIVE (NEGATIVE)
[2019-09-25 13:19] LABS: BASOPHILS % (AUTO) 1 % (0-10); EOSINOPHILS # (AUTO) 0.1 10^3/uL (0.0-0.3); EOSINOPHILS % (AUTO) 2 % (0-10); FIBRIN DEGRADATION PRODUCTS 1.83 UG/ML (0.00-0.49); HEMATOCRIT 41 % (35-52); INR 0.9 (0.8-1.4); LYMPHOCYTES # (AUTO) 1.6 X 10^3 (1.0-4.0); LYMPHOCYTES % (AUTO) 28 % (12-44); MEAN CORPUSCULAR HEMOGLOBIN 31 PG (25-34); MEAN CORPUSCULAR HGB CONC 32 G/DL (32-36); MEAN CORPUSCULAR VOLUME 96 FL (80-99); MEAN PLATELET VOLUME 10.7 FL (7.4-10.4); MONOCYTES # (AUTO) 0.4 X 10^3 (0.0-1.0); MONOCYTES % (AUTO) 7 % (0-12); NEUTROPHILS # (AUTO) 3.6 X 10^3 (1.8-7.8); NEUTROPHILS % (AUTO) 63 % (42-75); PLATELET COUNT 235 10^3/uL (130-400); PROTHROMBIN TIME PATIENT 12.5 SEC (12.2-14.7); RED CELL DISTRIBUTION WIDTH 14.3 % (10.0-14.5); WHITE BLOOD COUNT 5.7 10^3/uL (4.3-11.0)
[2019-09-25 13:30] LABS: AMORPHOUS SEDIMENT,UR RARE AMOR URATES /LPF; BACTERIA,URINE NEGATIVE /HPF; SQUAMOUS EPITHELIAL CELL,UR RARE /HPF
[2019-09-25] MEDS ORDERED: PROPOFOL DRIP (ICU) 100 ML IV SCH (13:30)
[2019-09-25 13:32] LABS: ALANINE AMINOTRANSFERASE 16 U/L (0-55); ALBUMIN 4.1 GM/DL (3.2-4.5); ALKALINE PHOSPHATASE 83 U/L (40-136); BILIRUBIN,TOTAL 0.2 MG/DL (0.1-1.0); BUN/CREATININE RATIO 19; CALCIUM 8.8 MG/DL (8.5-10.1); CARBON DIOXIDE 26 MMOL/L (21-32); CHLORIDE 110 MMOL/L (98-107); CREATININE SERUM 0.75 MG/DL (0.60-1.30); GFR ESTIMATED > 60; GLUCOSE 101 MG/DL (70-105); POTASSIUM 5.3 MMOL/L (3.6-5.0); SODIUM 143 MMOL/L (135-145); TOTAL PROTEIN 6.9 GM/DL (6.4-8.2)
--- NOTE | 2019-09-25 13:36 | Diagnostic Imaging Report ---
INDICATION: Unresponsive. Hypoxia. COMPARISON: None. FINDINGS: Single frontal view of the chest demonstrates indwelling endotracheal tube with tip at the lower level of the clavicular heads. Gastric tube is seen coiled in the stomach. Left-sided subclavian Port-A-Cath is also present with tip in the high SVC likely at the junction of the innominate veins. Normal heart size and pulmonary vascularity. Evaluation of the lungs demonstrates diffuse coarse prominence of the interstitium, which may be on a chronic basis. There is however no prior available for comparison. There is no focal alveolar consolidation, large effusion, nor pneumothorax. The visualized osseous structures show no acute abnormalities. IMPRESSION: 1. Diffuse coarse prominence of the interstitium, which again may be on a chronic basis, although there is no prior available for comparison. Underlying interstitial edema or pneumonia cannot be entirely excluded. 2. Lines and tubes as above. Dictated by: Dictated on workstation # [id number]
--- NOTE | 2019-09-25 13:43 | Diagnostic Imaging Report ---
PROCEDURE: CT head wo r/o stroke. TECHNIQUE: Multiple contiguous axial images were obtained through the brain without the use of intravenous contrast. Auto Exposure Controls were utilized during the CT exam to meet ALARA standards for radiation dose reduction. INDICATION: Unresponsive. COMPARISON: No prior studies are available for comparison. FINDINGS: Ventricles and sulci are somewhat prominent consistent with mild cerebral atrophy. No sulcal effacement or midline shift is seen. No acute intra-axial or extra-axial hemorrhage is detected. Cisterns are patent. Visualized paranasal sinuses appear clear. IMPRESSION: Age-related atrophy. No acute intracranial process is detected. Results were discussed with Dr. Correa of the emergency department prior to this dictation. Dictated by: Dictated on workstation # [id number]
[2019-09-25] MEDS ORDERED: CATHETER FLUSH 10 ML SYR IV PRN (13:45)
[2019-09-25] MEDS ORDERED: IOHEXOL 350 MG/ML 100 ML (OMNIPAQUE 350) VIAL IV ONE (13:45)
[2019-09-25] MEDS ORDERED: NS 100 ML (IVPB) BAG IV ONE (13:45)
[2019-09-25] MEDS ORDERED: HOLD METFORMIN - RECEIVED CONTRAST 20 ML VIAL IV SCH (13:45)
--- NOTE | 2019-09-25 14:16 | Diagnostic Imaging Report ---
PROCEDURE: CT angiography of the head and CT angiography of the neck with and without contrast. TECHNIQUE: Contiguous noncontrast images were obtained from the skull base through the vertex. After intravenous contrast administration, helical CT angiography of the neck was performed. Source data was reformatted into 3D MIP projections. Delayed post contrast acquisition was also obtained. Auto Exposure Controls were utilized during the CT exam to meet ALARA standards for radiation dose reduction. INDICATION: Stroke, unresponsive. FINDINGS: Delayed postcontrast images are unremarkable. There is a normal three-vessel branching pattern to the aortic arch. The common carotid arteries appear to be patent. There is some plaquing at the carotid bifurcations bilaterally. Both internal carotid arteries are tortuous but appear to be patent. No filling defects or thromboembolism is detected. There appears to be perfusion within bilateral middle cerebral and anterior cerebral arteries. Bilateral posterior cerebral arteries are patent. There is a origin to the right posterior cerebral artery, normal variant. Basilar artery is patent. The vertebral arteries appear to be codominant. Patient is intubated. There is some interstitial scarring in bilateral lung apices. IMPRESSION: Unremarkable CT angiogram of the head and neck. No thromboemboli are detected. Dictated by: Dictated on workstation # [id number]
[2019-09-25 15:06] LABS: ACETAMINOPHEN < 10 UG/ML (10-30); SALICYLATE < 5.0 MG/DL (5.0-20.0)
[2019-09-25 15:23] LABS: AMPHETAMINE SCREEN, URINE NEGATIVE (NEGATIVE); BARBITURATE SCREEN URINE NEGATIVE (NEGATIVE); BENZODIAZEPINES SCREEN URINE POSITIVE (NEGATIVE); CANNABINOID SCREEN, URINE NEGATIVE (NEGATIVE); COCAINE SCREEN URINE NEGATIVE (NEGATIVE); METHADONE STAT NEGATIVE (NEGATIVE); METHAMPHETAMINE SCREEN URINE S NEGATIVE (NEGATIVE); OPIATE SCREEN URINE NEGATIVE (NEGATIVE); OXYCODONE STAT NEGATIVE (NEGATIVE); PROPOXYPHENE STAT NEGATIVE (NEGATIVE); TRICYCLIC ANTIDEPRESSANTS SCRE NEGATIVE (NEGATIVE)
--- NOTE | 2019-09-25 15:31 | Occ Therapy Progress Note ---
Therapy Progress Note OT evaluation orders received. Per orders pt intubated, will recheck and eval/ treat when medically stable and able to participate in therapy services. MARTINEZ FRANCO OTR Sep 25, 2019 15:31
--- NOTE | 2019-09-25 15:35 | Physical Therapy Progress Note ---
Therapy Progress Note Patient is currently intubated and on ventilator. PT will continue to monitor patient status and assess when medically stable and able to actively participate with skilled therapy. NATE HARMON PT Sep 25, 2019 15:35
--- NOTE | 2019-09-25 15:47 | NUR ---
Received Dietary consult for Vent status. Spoke with RN about plan of care regarding enteral nutrition. If enteral nutrition is to be initiated over the weekend, told RN to contact me and I can put recommendations in. Will follow and assess as needed. Vinicio Kessler MS, RD, LD O: ext 133 C: [phone]
[2019-09-25] MEDS ORDERED: ONDANSETRON 4 MG/2 ML (SDV) Z0FRAN IV PRN (16:00)
--- NOTE | 2019-09-25 16:12 | Diagnostic Imaging Report ---
INDICATION: Respiratory failure. Intubated patient. COMPARISON: Earlier same day. FINDINGS: Single frontal radiographic view of the chest was obtained and again demonstrates an indwelling endotracheal tube with tip below the clavicular heads and above the camille. Gastric tube remains coiled within the stomach. Left-sided Port-A-Cath is in stable position. Lungs continue to show low respiratory volumes with diffuse coarse prominence of the interstitium. There is no new alveolar consolidation, large effusion, nor pneumothorax. Cardiac silhouette and pulmonary vasculature are stable. Osseous structures show no new acute abnormalities. IMPRESSION: 1. Essentially stable exam of the chest with lines and tubes as above. 2. Stable diffuse coarse prominence of the interstitium, which may be on a chronic basis, although acute interstitial pneumonia or edema cannot be excluded. Dictated by: Dictated on workstation # [id number]
[2019-09-25] MEDS: PROPOFOL DRIP (ICU) 100 ML IV SCH (16:14)
[2019-09-25] MEDS: NS IV 1000 ML 1,000 ML IV SCH (16:16)
[2019-09-25] MEDS: RT-ALBUTEROL/IPRATROPIUM 3 ML (DUONEB) VIAL INH SCH (18:12)
--- NOTE | 2019-09-25 18:32 | NUR ---
per pt order on vt 450 Addendum: 09/25/19 at 1833 by NATE CHAPMAN RT Amended: Links added.
[2019-09-25 21:37] LABS: ABG BASE EXCESS 0.5 MMOL/L (-2.5-2.5); ABG OXYGEN SATURATION 96 % (94-100); ABG PCO2 47 MMHG (35-45); ABG PH 7.35 (7.37-7.43); ABG PO2 118 MMHG (79-93); ABG TCO2 27.2 MMOL/L (21.0-31.0)
[2019-09-25 21:38] LABS: ALLENS TEST YES-POS
[2019-09-25 21:39] LABS: INSPIRED O2 SEE SPECIMEN COMMENT; PATIENT TEMP 36; VENTILATOR YES
[2019-09-26] VITALS (26 sets, daily range): BP systolic 88–180; BP diastolic 41–105
[2019-09-26] MEDS: NS IV 1000 ML 1,000 ML IV SCH ×3 (01:24→21:45)
[2019-09-26] MEDS: PROPOFOL DRIP (ICU) 100 ML IV SCH ×2 (01:25→06:50)
[2019-09-26 02:54] LABS: BASOPHILS % (AUTO) 0 % (0-10); EOSINOPHILS # (AUTO) 0.1 10^3/uL (0.0-0.3); EOSINOPHILS % (AUTO) 1 % (0-10); HEMATOCRIT 39 % (35-52); HEMOGLOBIN 12.5 G/DL (11.5-16.0); LYMPHOCYTES # (AUTO) 1.1 X 10^3 (1.0-4.0); LYMPHOCYTES % (AUTO) 14 % (12-44); MEAN CORPUSCULAR HEMOGLOBIN 30 PG (25-34); MEAN CORPUSCULAR HGB CONC 32 G/DL (32-36); MEAN CORPUSCULAR VOLUME 95 FL (80-99); MEAN PLATELET VOLUME 10.2 FL (7.4-10.4); MONOCYTES # (AUTO) 0.4 X 10^3 (0.0-1.0); MONOCYTES % (AUTO) 5 % (0-12); NEUTROPHILS # (AUTO) 6.4 X 10^3 (1.8-7.8); NEUTROPHILS % (AUTO) 80 % (42-75); PLATELET COUNT 233 10^3/uL (130-400); RED CELL DISTRIBUTION WIDTH 14.6 % (10.0-14.5)
[2019-09-26 03:00] LABS: ABG BASE EXCESS 0.2 MMOL/L (-2.5-2.5); ABG OXYGEN SATURATION 95 % (94-100); ABG PCO2 44 MMHG (35-45); ABG PH 7.37 (7.37-7.43); ABG PO2 90 MMHG (79-93); ABG TCO2 26.6 MMOL/L (21.0-31.0); ALLENS TEST YES-POS; INSPIRED O2 25; PATIENT TEMP 35.8; VENTILATOR YES
[2019-09-26 03:14] LABS: ALANINE AMINOTRANSFERASE 13 U/L (0-55); ALBUMIN 3.7 GM/DL (3.2-4.5); ALKALINE PHOSPHATASE 77 U/L (40-136); BILIRUBIN,TOTAL 0.2 MG/DL (0.1-1.0); BUN/CREATININE RATIO 21; CALCIUM 8.1 MG/DL (8.5-10.1); CARBON DIOXIDE 22 MMOL/L (21-32); CHLORIDE 109 MMOL/L (98-107); CHOLESTEROL 194 MG/DL (< 200); CREATININE SERUM 0.68 MG/DL (0.60-1.30); GFR ESTIMATED > 60; GLUCOSE 107 MG/DL (70-105); HDL CHOLESTEROL 65 MG/DL (40-60); MAGNESIUM 1.8 MG/DL (1.6-2.4); PHOSPHORUS 3.8 MG/DL (2.3-4.7); POTASSIUM 4.3 MMOL/L (3.6-5.0); SODIUM 142 MMOL/L (135-145); TOTAL PROTEIN 6.4 GM/DL (6.4-8.2); TRIGLYCERIDES 130 MG/DL (<150); VLDL CHOLESTEROL 26 MG/DL (5-40)
[2019-09-26] MEDS: MAGNESIUM 1 GM/100 ML IVPB 100 ML IV SCH (05:34)
[2019-09-26] MEDS: KCL 20 MEQ TAB (K-DUR) PO SCH (05:34)
[2019-09-26] MEDS: POTASSIUM CL 10MEQ/50ML IVPB 50 ML IV SCH (05:34)
[2019-09-26] MEDS: RT-ALBUTEROL/IPRATROPIUM 3 ML (DUONEB) VIAL INH SCH ×4 (05:55→17:59)
--- NOTE | 2019-09-26 06:26 | Diagnostic Imaging Report ---
EXAMINATION: Portable semierect AP chest at 4:05 AM INDICATION: Dyspnea The heart size is within normal limits and stable when compared to 09/25/2019. In the interval since the prior study a few thin strands of atelectasis/infiltrate have developed in the left retrocardiac region. The lungs are otherwise generally clear. The mediastinum is not widened. The osseous structures are intact. The supportive tubes and lines seen previously appear stable. The orthopedic hardware overlying the lower cervical spine and surgical clips in the soft tissues lateral to the lower thorax on the right seen previously are also unchanged. IMPRESSION: Aside from the development of a few thin strands of atelectasis/infiltrate in the left retrocardiac region, there has been no significant change since the prior exam. Dictated by: Dictated on workstation # [id number]
--- NOTE | 2019-09-26 07:04 | Physical Therapy Progress Note ---
Therapy Progress Note Patient currently intubated and on vent. PT will assess when patient is medically stable and able to actively participate with therapy. NATE HARMON PT Sep 26, 2019 07:03
[2019-09-26] MEDS: PANTOPRAZOLE 40 MG (PROTONIX) VIAL IV SCH (08:08)
--- NOTE | 2019-09-26 09:01 | History & Physical-Hospitalist ---
History of Present Illness HPI/Chief Complaint Initial Comments Here by EMS with report of being found unresponsive at home by her sister. Report of the field noted patient to have O2 sat of 76%. EMS did place the patient on high flow mask and noted snoring respirations. They did give Narcan 2 mg IV which had no effect on the patient. Apparently the patient was able tell her sister that she fell at some point and stated her chest hurt but this was all in simple words and there is no verification that she fell although it was reported that she was found on the floor early this morning by her sister 8 AM. EMS found her in bed. Snoring respirations continue although she is maintaining O2 sats are raised and on high flow mask. No obvious findings of external injury and patient is not answering questions. She does not respond to sternal rub. Timing/Duration: unknown, other (symptoms noted at 8 AM. Last known well time was last night.) Patient was sleeping comfortably upon my arrival under Diprovan sedation,she appeared to be in no acute distress with no evidence for respiratory distress. Nursing staff stated that she did intermittently been awake and attempting to extubate herself. They have not noted any evidence for respiratory distress or chest congestion. Date Seen 09/26/19 Time Seen by a Provider: 07:00 Attending Physician Rc Tang MD PCP Jose Roque MD Referring Physician Date of Admission Sep 25, 2019 at 14:43 Home Medications & Allergies Home Medications Reviewed patient Home Medication Reconciliation performed by pharmacy medication reconciliations ski technician and/or nursing. Patients Allergies have been reviewed. Allergies Allergies Coded Allergies hydrocodone (Verified Allergy, Unknown, HALLUCINATIONS, 02/06/18) morphine (Verified Allergy, Unknown, MIGRAINE, 02/06/18) tramadol (Verified Allergy, Unknown, HALLUCINATIONS, 02/06/18) Past Tpfahnx-Qodjxr-Sjluyp Hx Past Med/Social Hx: Reviewed Nursing Past Med/Soc Hx, Reviewed and Corrections made Patient Social History Alcohol Use: Denies Use Recreational Drug Use: No Smoking Status: Former Smoker Former Smoker, Quit: Oct 02, 2017 Type Used: Cigarettes Recent Foreign Travel: No Contact w/other who traveled: No Recent Hopitalizations: No Recent Infectious Disease Expo: No Immunizations Up To Date Tetanus Booster (TDap): Unknown Date of Influenza Vaccine: Aug 07, 2017 Seasonal Allergies Seasonal Allergies: Yes Past Medical History Surgeries: Bladder Surgery, Tubal Ligation Neurological: Headaches /Migraines Gastrointestinal: Gastroesophageal Reflux, Chronic Constipation, Hepatitis Musculoskeletal: Arthritis, Chronic Back Pain Cancer: Breast Did You Recieve Any Treatments: Yes What Type of Treatment Did You: Chemotherapy, Surgical Intervention Psychosocial: Anxiety, Bipolar History of Blood Disorders: No Family History Reviewed Nursing Family Hx History from records review as patient unable to provide information due to unresponsive Review of Systems ROS-Unable to Obtain: Due to sedation on ventilation. Constitutional: no symptoms reported Physical Exam Physical Exam Vital Signs Vital Signs - First Documented 09/25/19 09/25/19 12:44 14:39 Temp 35.4 Pulse 60 Resp 9 B/P (MAP) 109/86 (94) Pulse Ox 99 O2 Delivery Non Rebreather O2 Flow Rate 15.00 FiO2 30 Capillary Refill : Less Than 3 Seconds Height, Weight, BMI Height: 5'0.00" Weight: 153lbs. 0.0oz. [id number]; 26.00 BMI Method: General Appearance: No Apparent Distress Neck: Normal Inspection Respiratory: Chest Non Tender, Lungs Clear, Normal Breath Sounds, No Accessory Muscle Use, No Respiratory Distress Cardiovascular: Regular Rate, Rhythm, No Edema, No Gallop, No JVD, No Murmur, Normal Peripheral Pulses Gastrointestinal: Normal Bowel Sounds, No Organomegaly, No Pulsatile Mass, Non Tender, Soft Extremity: Normal Capillary Refill, Normal Inspection, Normal Range of Motion, Non Tender, No Calf Tenderness, No Pedal Edema Results Results/Procedures Labs Laboratory Tests 09/25/19 12:50 09/26/19 02:35 Patient resulted labs reviewed. Assessment/Plan Admission Diagnosis A/P 1. Benzodiazepine overdose with respiratory depression resolving will discontinued up her van and extubate when alert. 2. Reported bipolar disorder with anxiety we'll resume sertraline when taking by mouth medication. 3. Moderate dose gabapentin no history of seizure disorder presumably for chronic low back pain will resume this as well when taking medication by mouth. Admission Status: Observation Clinical Quality Measures DVT/VTE Risk/Contraindication: Risk Factor Score Per Nursin RFS Level Per Nursing on Admit: 3=High RC TANG MD Sep 26, 2019 09:01
--- NOTE | 2019-09-26 09:53 | NUR ---
0845 PT ABLE TO FOLLOW COMMANDS PER ORDERS RECEIVED PRIOR FROM DR TANG PT EXTUBATED, RT EXTUBATED PT AT 0855. PT MAINTAINING SA02 AT 94-95% ON ROOM AIR. PT ALERT TO NAME THIS RN HAS HAD TO REITERATE SEVERAL TIMES TO WHERE SHE IS AND WHY. BED ALARM ON. CALL LIGHT WITHIN REACH, PT RESTING AT THIS TIME WILL CONTINUE TO MONITOR.
--- NOTE | 2019-09-26 09:55 | NUR ---
0945 PT C/O OF CHEST PAIN RATES PAIN AT 10 ON 0-10 SCALE, EKG OBTAINED, RESULTS GIVEN TO DR TANG NEW ORDERS RECEIVED VIA TELEPHONE. AFTER EKG COMPLETED PT NOW RATES PAIN AT 6 ON 0-10 SCALE AND STATES " I FELL THE OTHER DAY" . PT REPOSITIONED AND WARM BLANKED APPLIED. WILL CONTINUE TO MONITOR.
[2019-09-26] MEDS ORDERED: ANTACID SUSP 30 ML UDC (MYLANTA) PO PRN (10:00)
[2019-09-26] MEDS: GABAPENTIN 600 MG (NEURONTIN) TAB PO SCH ×2 (11:55→21:30)
--- NOTE | 2019-09-26 14:22 | NUR ---
PT C/O OF HEADACHE, SISTER AT BEDSIDE STATES " SHE TAKES TYLENOL AT HOME FOR THEM", DR TANG NOTIFIED NEW ORDERS RECEIVED.
[2019-09-26] MEDS ORDERED: ACETAMINOPHEN 500 MG TAB (TYLENOL) PO PRN (14:30)
--- NOTE | 2019-09-26 17:09 | NUR ---
DR TANG NOTIFIED OF PT'S DVT RISK SCORE, NEW ORDERS RECEIVED.
[2019-09-26] MEDS ORDERED: ENOXAPARIN 40 MG/0.4 ML (LOVENOX) SYR SC SCH (17:15)
[2019-09-26] MEDS ORDERED: ENOXAPARIN 40 MG/0.4 ML (LOVENOX) SYR ONE (18:14)
[2019-09-26] MEDS ORDERED: SERTRALINE 100 MG (ZOLOFT) TAB PO SCH (21:00)
[2019-09-27] VITALS (11 sets, daily range): BP systolic 128–165; BP diastolic 77–92
[2019-09-27 02:58] LABS: BASOPHILS % (AUTO) 0 % (0-10); EOSINOPHILS % (AUTO) 1 % (0-10); HEMATOCRIT 36 % (35-52); HEMOGLOBIN 11.5 G/DL (11.5-16.0); LYMPHOCYTES # (AUTO) 1.9 X 10^3 (1.0-4.0); LYMPHOCYTES % (AUTO) 24 % (12-44); MEAN CORPUSCULAR HEMOGLOBIN 30 PG (25-34); MEAN CORPUSCULAR HGB CONC 32 G/DL (32-36); MEAN CORPUSCULAR VOLUME 95 FL (80-99); MEAN PLATELET VOLUME 10.3 FL (7.4-10.4); MONOCYTES # (AUTO) 0.6 X 10^3 (0.0-1.0); MONOCYTES % (AUTO) 7 % (0-12); NEUTROPHILS # (AUTO) 5.4 X 10^3 (1.8-7.8); NEUTROPHILS % (AUTO) 68 % (42-75); PLATELET COUNT 214 10^3/uL (130-400); RED CELL DISTRIBUTION WIDTH 14.9 % (10.0-14.5); WHITE BLOOD COUNT 7.9 10^3/uL (4.3-11.0)
[2019-09-27 03:16] LABS: BUN/CREATININE RATIO 17; CALCIUM 8.1 MG/DL (8.5-10.1); CARBON DIOXIDE 20 MMOL/L (21-32); CHLORIDE 112 MMOL/L (98-107); CREATININE SERUM 0.69 MG/DL (0.60-1.30); GFR ESTIMATED > 60; GLUCOSE 87 MG/DL (70-105); MAGNESIUM 1.9 MG/DL (1.6-2.4); PHOSPHORUS 2.8 MG/DL (2.3-4.7); POTASSIUM 3.8 MMOL/L (3.6-5.0); SODIUM 144 MMOL/L (135-145)
[2019-09-27] MEDS: MAGNESIUM 1 GM/100 ML IVPB 100 ML IV SCH (03:43)
[2019-09-27] MEDS: POTASSIUM CL 10MEQ/50ML IVPB 50 ML IV SCH (03:43)
[2019-09-27] MEDS: KCL 20 MEQ TAB (K-DUR) PO SCH (03:44)
[2019-09-27] MEDS: RT-ALBUTEROL/IPRATROPIUM 3 ML (DUONEB) VIAL INH SCH ×2 (06:31→09:46)
[2019-09-27] MEDS: NS IV 1000 ML 1,000 ML IV SCH (07:44)
[2019-09-27] MEDS: GABAPENTIN 600 MG (NEURONTIN) TAB PO SCH (07:55)
[2019-09-27] MEDS: PANTOPRAZOLE 40 MG (PROTONIX) VIAL IV SCH (07:55)
--- NOTE | 2019-09-27 08:22 | Diagnostic Imaging Report ---
CHEST 1 VIEW, AP/PA ONLY Indication: Dyspnea Comparison: 09/26/2019 Findings: No focal airspace disease in the visualized lungs. Please note that the posterior lower lobes are poorly evaluated by portable radiography. No pleural effusion or pneumothorax. Normal cardiomediastinal silhouette. Stable left subclavian central venous catheter. ET and enteric tubes have been removed. Impression: 1. Removal of ET and enteric tubes without complication. Dictated by: Dictated on workstation # [id number]
--- NOTE | 2019-09-27 12:21 | Discharge Summary ---
Discharge Summary Hospital Course Was the Problem List Reviewed?: Yes Hospital Course Date of Admission: Sep 25, 2019 at 14:43 Admission Diagnosis : [facility] Date of [facility]: 09/27/19 Discharge Diagnosis: [ ] Hospital Course: [ ] Labs and Pending Lab Test: Laboratory Tests 09/27/19 03:00: White Blood Count 7.9, Red Blood Count 3.79L, Hemoglobin 11.5, Hematocrit 36, Mean Corpuscular Volume 95, Mean Corpuscular Hemoglobin 30, Mean Corpuscular Hemoglobin Concent 32, Red Cell Distribution Width 14.9H, Platelet Count 214, Mean Platelet Volume 10.3, Neutrophils (%) (Auto) 68, Lymphocytes (%) (Auto) 24, Monocytes (%) (Auto) 7, Eosinophils (%) (Auto) 1, Basophils (%) (Auto) 0, Neutrophils # (Auto) 5.4, Lymphocytes # (Auto) 1.9, Monocytes # (Auto) 0.6, Eosinophils # (Auto) 0.0, Basophils # (Auto) 0.0, Sodium Level 144, Potassium Level 3.8, Chloride Level 112H, Carbon Dioxide Level 20L, Anion Gap 12, Blood Urea Nitrogen 12, Creatinine 0.69, Estimat Glomerular Filtration Rate > 60, BUN/Creatinine Ratio 17, Glucose Level 87, Calcium Level 8.1L, Phosphorus Level 2.8, Magnesium Level 1.9 Microbiology 09/25/19 Gram Stain - Final, Resulted 09/25/19 Sputum Culture - Preliminary, Resulted Usual upper respiratory sonny Home Meds Active Carafate (Sucralfate) 1 Gm Tablet 1 Gm PO QID Protonix (Pantoprazole Sodium) 40 Mg Tablet.dr 40 Mg PO DAILY Reported Lovastatin 20 Mg Tablet 20 Mg PO HS Baclofen 10 Mg Tablet 10 Mg PO TID Neurontin (Gabapentin) 600 Mg Tablet 600 Mg PO QID Sertraline HCl 100 Mg Tablet 200 Mg PO DAILY take 2 (100mg) tabs Assessment/Pt Instructions See hospital course Discharge Planning: <30 minutes discharge planning Discharge Physical Examination Vital Signs Vital Signs Date Time Temp Pulse Resp B/P (MAP) Pulse Ox O2 Delivery O2 Flow Rate FiO2 09/27/19 12:00 87 155/87 (109) Room Air 09/27/19 12:00 36.6 18 96 09/26/19 08:05 25 09/26/19 08:00 25.00 General Appearance: No Apparent Distress, WD/WN HEENT: PERRL/EOMI Respiratory: Chest Non Tender, Lungs Clear, Normal Breath Sounds, No Accessory Muscle Use, No Respiratory Distress Cardiovascular: Regular Rate, Rhythm, No Edema, No Gallop, No JVD, No Murmur, Normal Peripheral Pulses Gastrointestinal: Normal Bowel Sounds, No Organomegaly, No Pulsatile Mass, Non Tender, Soft Extremity: Normal Range of Motion, No Pedal Edema Skin: Normal Color, Warm/Dry Neurologic/Psychiatric: Alert, Oriented x3, No Motor/Sensory Deficits, Normal Mood/Affect Allergies: Coded Allergies: hydrocodone (Verified Allergy, Unknown, HALLUCINATIONS, 02/06/18) morphine (Verified Allergy, Unknown, MIGRAINE, 02/06/18) tramadol (Verified Allergy, Unknown, HALLUCINATIONS, 02/06/18) Copy Copies To 1: MARY JO SALVADOR MD Discharge Summary Date of Admission Sep 25, 2019 at 14:43 Date of Discharge Discharge Date: Sep 27, 2019 Admission Diagnosis A/P 1. Benzodiazepine overdose with respiratory depression resolving will discontinue alprazolam and extubate when alert. 2. Reported bipolar disorder with anxiety we'll resume sertraline when taking by mouth medication. 3. Moderate dose gabapentin no history of seizure disorder presumably for chronic low back pain will resume this as well when taking medication by mouth. Emergency room and hospital course: Here by EMS with report of being found unresponsive at home by her sister. Report of the field noted patient to have O2 sat of 76%. EMS did place the patient on high flow mask and noted snoring respirations. They did give Narcan 2 mg IV which had no effect on the patient. Apparently the patient was able tell her sister that s he fell at some point and stated her chest hurt but this was all in simple words and there is no verification that she fell although it was reported that she was found on the floor early this morning by her sister 8 AM. EMS found her in bed. Snoring respirations continue although she is maintaining O2 sats are raised and on high flow mask. No obvious findings of external injury and patient is not answering questions. She does not respond to sternal rub. Timing/Duration: unknown, other (symptoms noted at 8 AM. Last known well time was last night.) Patient was sleeping comfortably upon my arrival under Diprovan sedation,she appeared to be in no acute distress with no evidence for respiratory distress. Nursing staff stated that she did intermittently been awake and attempting to extubate herself. They have not noted any evidence for respiratory distress or chest congestion. Hospital course: The patient was more alert by the following morning and underwent uneventful extubation. Her chest was clear and vital signs were stable. She denied exacerbation of depression or suicidal ideation. She states her overdose was a result of frustration with insomnia poor impulse control and taking too many alprazolam at one time. We discussed the need to remain off medication continuing her other medication and following up with Dr. Hammond next week. I had the nurse called to cancel any remaining refills of alprazolam continuing her other medications unchanged. She was discharged with stable vital signs and unremarkable physical examination with no evidence to suggest aspiration pneumonitis. Clinical Quality Measures DVT/VTE Risk/Contraindication: Risk Factor Score Per Nursin RFS Level Per Nursing on Admit: 3=High NICHOLAS TANG MD Sep 27, 2019 12:21
== END 2019-09-27 13:15 | disposition home or self-care (01) | DRG 918 ==
LOC: EDUNIT# 12:44 → ER 12:46 → ICU 14:43
PROVIDERS: ADMIT Internal Medicine; ATTEND Internal Medicine
PROC: 5A1945Z Respiratory Ventilation, 24-96 Consecutive Hours (ICD-10-PCS; principal; 2019-09-25)
PROC: 0BH17EZ Insertion of Endotracheal Airway into Trachea, Via Natural or Artificial Opening (ICD-10-PCS; principal; 2019-09-25)
DX: T42.4X1A Poisoning by benzodiazepines, accidental (unintentional), initial encounter (principal); G43.909 Migraine, unspecified, not intractable, without status migrainosus; K21.9 Gastro-esophageal reflux disease without esophagitis; K59.09 Other constipation; M19.90 Unspecified osteoarthritis, unspecified site; G89.29 Other chronic pain; M54.9 Dorsalgia, unspecified; F31.9 Bipolar disorder, unspecified; G47.00 Insomnia, unspecified; Z92.21 Personal history of antineoplastic chemotherapy; Z87.891 Personal history of nicotine dependence; Z98.51 Tubal ligation status; Z85.3 Personal history of malignant neoplasm of breast
CPT/HCPCS: 31500; 36415; 36600; 51702; 70450; 70496; 70498; 71045; 80048; 80053; 80061; 80306; 80320; 80329; 81000; 82805; 82962; 83735; 84100; 84484; 85025; 85379; 85610; 85730; 87070; 87081; 87205; 93005; 93041; 94002; 94640; 94799; 96365; 96366

== ENCOUNTER 2019-11-28 23:20 | Emergency (ER) | payer MEDICARE ==
[~2019-11-28] VITALS: Ht 160 cm; Wt 68.2 kg
[2019-11-28] MEDS ORDERED: ETOMIDATE IV SOLN 20 MG/10 ML VIAL IV ONE (23:27)
[2019-11-28] MEDS ORDERED: SUCCINYLCHOLINE INJ 100 MG/5 ML SYR INJ ONE (23:27)
[2019-11-28] MEDS ORDERED: NS IV 1000 ML 1,000 ML IV ONE (23:31)
[2019-11-28] MEDS ORDERED: MIRT15TA6 (23:35)
[2019-11-28] MEDS ORDERED: ALPR1TAB7 (23:35)
[2019-11-28] MEDS ORDERED: ALEN70TA5 (23:35)
[2019-11-28] MEDS ORDERED: BACL20TA (23:35)
[2019-11-28 23:42] LABS: BILIRUBIN,URINE NEGATIVE (NEGATIVE); CLARITY,URINE CLEAR; COLOR,URINE YELLOW; GLUCOSE, URINE (UA) NEGATIVE (NEGATIVE); KETONES,URINE NEGATIVE (NEGATIVE); LEUKOCYTE ESTERASE ,URINE TRACE (NEGATIVE); NITRITE,URINE NEGATIVE (NEGATIVE); PROTEIN,URINE NEGATIVE (NEGATIVE)
[2019-11-28 23:43] LABS: BASOPHILS % (AUTO) 1 % (0-10); EOSINOPHILS # (AUTO) 0.2 10^3/uL (0.0-0.3); EOSINOPHILS % (AUTO) 3 % (0-10); HEMATOCRIT 39 % (35-52); HEMOGLOBIN 12.6 G/DL (11.5-16.0); LYMPHOCYTES % (AUTO) 33 % (12-44); MEAN CORPUSCULAR HEMOGLOBIN 31 PG (25-34); MEAN CORPUSCULAR HGB CONC 33 G/DL (32-36); MEAN CORPUSCULAR VOLUME 95 FL (80-99); MEAN PLATELET VOLUME 10.1 FL (7.4-10.4); MONOCYTES # (AUTO) 0.5 X 10^3 (0.0-1.0); MONOCYTES % (AUTO) 9 % (0-12); NEUTROPHILS # (AUTO) 3.3 X 10^3 (1.8-7.8); NEUTROPHILS % (AUTO) 55 % (42-75); PLATELET COUNT 268 10^3/uL (130-400); RED CELL DISTRIBUTION WIDTH 14.9 % (10.0-14.5); WHITE BLOOD COUNT 5.9 10^3/uL (4.3-11.0)
--- NOTE | 2019-11-28 23:45 | NUR ---
per pt's roomate pt has not slept in 2 days. pt has had similiar episodes in past when taking xanax.
[2019-11-28 23:54] LABS: BACTERIA,URINE MODERATE /HPF
[2019-11-28 23:57] LABS: AMPHETAMINE SCREEN, URINE NEGATIVE (NEGATIVE); BARBITURATE SCREEN URINE NEGATIVE (NEGATIVE); BENZODIAZEPINES SCREEN URINE POSITIVE (NEGATIVE); CANNABINOID SCREEN, URINE NEGATIVE (NEGATIVE); COCAINE SCREEN URINE NEGATIVE (NEGATIVE); METHADONE STAT NEGATIVE (NEGATIVE); METHAMPHETAMINE SCREEN URINE S NEGATIVE (NEGATIVE); OPIATE SCREEN URINE NEGATIVE (NEGATIVE); OXYCODONE STAT NEGATIVE (NEGATIVE); PROPOXYPHENE STAT NEGATIVE (NEGATIVE); TRICYCLIC ANTIDEPRESSANTS SCRE NEGATIVE (NEGATIVE)
[2019-11-28 23:58] LABS: ALANINE AMINOTRANSFERASE 18 U/L (0-55); ALBUMIN 4.4 GM/DL (3.2-4.5); ALKALINE PHOSPHATASE 80 U/L (40-136); BILIRUBIN,TOTAL 0.3 MG/DL (0.1-1.0); BUN/CREATININE RATIO 23; CALCIUM 9.5 MG/DL (8.5-10.1); CARBON DIOXIDE 21 MMOL/L (21-32); CHLORIDE 107 MMOL/L (98-107); CREATININE SERUM 0.96 MG/DL (0.60-1.30); GFR ESTIMATED 58; GLUCOSE 89 MG/DL (70-105); MAGNESIUM 2.3 MG/DL (1.6-2.4); POTASSIUM 3.9 MMOL/L (3.6-5.0); SODIUM 143 MMOL/L (135-145); TOTAL PROTEIN 7.1 GM/DL (6.4-8.2)
[2019-11-29] MEDS ORDERED: NALOXONE 2 MG/2 ML (NARCAN) SYR ONE (00:17)
--- NOTE | 2019-11-29 00:20 | NUR ---
pt with minimal response. decision to intubate per dr wilson.
[2019-11-29] MEDS ORDERED: NALOXONE 2 MG/2 ML (NARCAN) SYR IV ONE (00:30)
[2019-11-29] MEDS ORDERED: PROPOFOL DRIP (ICU) 100 ML IV ONE (00:39)
[2019-11-29] MEDS ORDERED: PROPOFOL DRIP (ICU) 100 ML IV SCH (00:45)
--- NOTE | 2019-11-29 00:51 | ED Neurological Problem ---
General Chief Complaint: Altered Mental Status Stated Complaint: CONFUSION Nursing Triage Note: altered mental status Nursing Sepsis Screen: No Definite Risk Source: patient, family Exam Limitations: no limitations History of Present Illness Date Seen by Provider: Nov 29, 2019 Time Seen by Provider: 23:26 Initial Comments This 69-year-old woman is brought to the emergency room by her nephew after the patient's roommate called him expressing concern about her mental status. Patient has been unable to sleep for several days and took "a couple of Xanax" this evening to help her sleep. Review of chart notes that she recently filled a 1 mg dose of baclofen and has been consistently prescribed Xanax despite having an overdose requiring intubation in September of this year. She is alert and oriented but rather drowsy upon arrival. She states her Xanax ingestion was 6 hours ago. She does not, on the baclofen. She has some mild dystonic movements and has decreased muscle tone. She does not appear to have any focal deficits. There was no known trauma. Patient also has a history of bipolar disorder. Allergies and Home Medications Allergies Coded Allergies: hydrocodone (Verified Allergy, Unknown, HALLUCINATIONS, 02/06/18) morphine (Verified Allergy, Unknown, MIGRAINE, 02/06/18) tramadol (Verified Allergy, Unknown, HALLUCINATIONS, 02/06/18) Home Medications Gabapentin 600 Mg Tablet, 600 MG PO QID, (Reported) Lovastatin 20 Mg Tablet, 20 MG PO HS, (Reported) Pantoprazole Sodium 40 Mg Tablet.dr, 40 MG PO DAILY Prescribed by: CECY TREVIZO on 02/11/18 1001 Patient Home Medication List Home Medication List Reviewed: Yes Review of Systems Review of Systems Constitutional: see HPI Eyes: No Symptoms Reported Ears, Nose, Mouth, Throat: no symptoms reported Respiratory: no symptoms reported Cardiovascular: no symptoms reported Gastrointestinal: no symptoms reported Genitourinary: no symptoms reported Musculoskeletal: see HPI Skin: no symptoms reported Psychiatric/Neurological: See HPI Endocrine: No Symptoms Reported Hematologic/Lymphatic: No Symptoms Reported Past Bbpkawc-Vikeon-Qknnuh Hx Patient Social History Alcohol Use: Denies Use Recreational Drug Use: No Smoking Status: Former Smoker Type Used: Cigarettes Former Smoker, Quit: Oct 02, 2017 Recent Foreign Travel: No Contact w/Someone Who Travel: No Recent Infectious Disease Expo: No Recent Hopitalizations: No Physical Abuse: No Sexual Abuse: No Mistreated: No Fear: No Immunizations Up To Date Tetanus Booster (TDap): Unknown Date of Pneumonia Vaccine: Aug 27, 2016 Date of Influenza Vaccine: Aug 20, 2019 Seasonal Allergies Seasonal Allergies: Yes Past Medical History Surgeries: Yes (bilateral mastectomy) Bladder Surgery, Tubal Ligation Respiratory: No Cardiac: No Neurological: Yes Headaches /Migraines : 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 Genitourinary: No Gastrointestinal: Yes Gastroesophageal Reflux, Chronic Constipation, Hepatitis Musculoskeletal: Yes Arthritis, Chronic Back Pain Endocrine: No HEENT: No Cancer: Yes Breast Did You Recieve Any Treatments: Yes What Type of Treatment Did You: Chemotherapy, Surgical Intervention Psychosocial: Yes (history of prescription drug overdose) Anxiety, Bipolar Integumentary: No Blood Disorders: No Family Medical History History from records review as patient unable to provide information due to unresponsive Physical Exam Vital Signs Vital Signs - First Documented 11/28/19 11/29/19 23:20 01:21 Temp 36.5 Pulse 86 Resp 20 B/P (MAP) 165/90 (115) Pulse Ox 96 O2 Delivery Room Air FiO2 21 Capillary Refill : Less Than 3 Seconds Height, Weight, BMI Height: 5'0.00" Weight: 153lbs. 0.0oz. 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 Global decrease in muscle tone with no focal deficits) Crainal Nerves: normal hearing, normal speech, PERRL Motor/Sensory: no sensory deficit Skin: normal color, warm/dry Procedures/Interventions Date of ETT Placement: Nov 29, 2019 Time of ETT Placement: 0035 Intubation Method: orotracheal Tube Size: 7.50 Medications: Etomidate, Propofol, Succinylcholine Positive End Tide CO2: Yes Breath Sounds after Intubation: bilateral-equal Intubation Complications: no complications CT of the C-spine done after intubation demonstrated a right mainstem bronchus intubation. ET tube is being withdrawn 3 cm. Progress/Results/Core Measures Results/Orders Lab Results Laboratory Tests Test 11/28/19 23:30 11/28/19 23:32 Range/Units Urine Color YELLOW Urine Clarity CLEAR Urine pH 6.0 5-9 Urine Specific [place] 1.025 H 1.016-1.022 Urine Protein NEGATIVE NEGATIVE Urine Glucose (UA) NEGATIVE NEGATIVE Urine Ketones NEGATIVE NEGATIVE Urine Nitrite NEGATIVE NEGATIVE Urine Bilirubin NEGATIVE NEGATIVE Urine Urobilinogen 0.2 < = 1.0 MG/DL Urine Leukocyte Esterase TRACE NEGATIVE Urine RBC (Auto) TRACE-I NEGATIVE Urine RBC 5-10 H /HPF Urine WBC 2-5 /HPF Urine Squamous Epithelial Cells 2-5 /HPF Urine Crystals NONE /LPF Urine Bacteria MODERATE H /HPF Urine Casts NONE /LPF Urine Mucus MODERATE H /LPF Urine Culture Indicated YES Urine Opiates Screen NEGATIVE NEGATIVE Urine Oxycodone Screen NEGATIVE NEGATIVE Urine Methadone Screen NEGATIVE NEGATIVE Urine Propoxyphene Screen NEGATIVE NEGATIVE Urine Barbiturates Screen NEGATIVE NEGATIVE Ur Tricyclic Antidepressants Screen NEGATIVE NEGATIVE Urine Phencyclidine Screen NEGATIVE NEGATIVE Urine Amphetamines Screen NEGATIVE NEGATIVE Urine Methamphetamines Screen NEGATIVE NEGATIVE Urine Benzodiazepines Screen POSITIVE H NEGATIVE Urine Cocaine Screen NEGATIVE NEGATIVE Urine Cannabinoids Screen NEGATIVE NEGATIVE White Blood Count 5.9 4.3-11.0 10^3/uL Red Blood Count 4.09 L 4.35-5.85 10^6/uL Hemoglobin 12.6 11.5-16.0 G/DL Hematocrit 39 35-52 % Mean Corpuscular Volume 95 80-99 FL Mean Corpuscular Hemoglobin 31 25-34 PG Mean Corpuscular Hemoglobin Concent 33 32-36 G/DL Red Cell Distribution Width 14.9 H 10.0-14.5 % Platelet Count 268 130-400 10^3/uL Mean Platelet Volume 10.1 7.4-10.4 FL Neutrophils (%) (Auto) 55 42-75 % Lymphocytes (%) (Auto) 33 12-44 % Monocytes (%) (Auto) 9 0-12 % Eosinophils (%) (Auto) 3 0-10 % Basophils (%) (Auto) 1 0-10 % Neutrophils # (Auto) 3.3 1.8-7.8 X 10^3 Lymphocytes # (Auto) 2.0 1.0-4.0 X 10^3 Monocytes # (Auto) 0.5 0.0-1.0 X 10^3 Eosinophils # (Auto) 0.2 0.0-0.3 10^3/uL Basophils # (Auto) 0.0 0.0-0.1 10^3/uL Sodium Level 143 135-145 MMOL/L Potassium Level 3.9 3.6-5.0 MMOL/L Chloride Level 107 98-107 MMOL/L Carbon Dioxide Level 21 21-32 MMOL/L Anion Gap 15 H 5-14 MMOL/L Blood Urea Nitrogen 22 H 7-18 MG/DL Creatinine 0.96 0.60-1.30 MG/DL Estimat Glomerular Filtration Rate 58 BUN/Creatinine Ratio 23 Glucose Level 89 70-105 MG/DL Calcium Level 9.5 8.5-10.1 MG/DL Corrected Calcium 9.2 8.5-10.1 MG/DL Magnesium Level 2.3 1.6-2.4 MG/DL Total Bilirubin 0.3 0.1-1.0 MG/DL Aspartate Amino Transf (AST/SGOT) 21 5-34 U/L Alanine Aminotransferase (ALT/SGPT) 18 0-55 U/L Alkaline Phosphatase 80 40-136 U/L Total Protein 7.1 6.4-8.2 GM/DL Albumin 4.4 3.2-4.5 GM/DL Serum Alcohol < 10 <10 MG/DL My Orders Orders - MARCO NEWMAN MD Alcohol (11/28/19 23:28) Cbc With Automated Diff (11/28/19 23:28) Comprehensive Metabolic Panel (11/28/19 23:28) Drug Screen Stat (Urine) (11/28/19 23:28) Magnesium (11/28/19 23:28) Ua Culture If Indicated (11/28/19 23:28) Ed Iv/Invasive Line Start (11/28/19 23:28) Ns Iv 1000 Ml (Sodium Chloride 0.9%) (11/28/19 23:31) Urine Culture (11/28/19 23:30) Naloxone Injection (Narcan Injection) (11/29/19 00:30) Naloxone Injection (Narcan Injection) (11/29/19 00:17) Ct Head/Cervical Spine Wo (11/29/19 00:38) Chest 1 View, Ap/Pa Only (11/29/19 00:38) Estrada Cath (11/29/19 00:38) Propofol Drip (Icu) (Diprivan Drip (Icu) (11/29/19 00:45) Propofol Drip (Icu) (Diprivan Drip (Icu) (11/29/19 00:39) Ng Tube Insert & Assessment (11/29/19 00:59) Ns Iv 1000 Ml (Sodium Chloride 0.9%) (11/29/19 01:28) Etomidate Injection (Amidate Injection) (11/29/19 01:30) Succinylcholine Injection (Succinylcholi (11/29/19 01:30) Medications Given in ED Current Medications Medications Dose Ordered Sig/Kelley Route Start Time Stop Time Status Last Admin Dose Admin Etomidate 20 mg ONCE ONCE IV 11/29/19 01:30 11/29/19 01:31 DC 11/29/19 00:33 20 MG Naloxone HCl 1 mg ONCE ONCE IV 11/29/19 00:30 11/29/19 00:31 DC 11/29/19 00:22 1 MG Sodium Chloride 1,000 ml @ 0 mls/hr Q0M ONCE IV 11/28/19 23:31 11/28/19 23:32 DC 11/28/19 23:44 0 MLS/HR Succinylcholine Chloride 50 mg ONCE ONCE INJ 11/29/19 01:30 11/29/19 01:31 DC 11/29/19 00:34 50 MG Vital Signs/I&O 11/28/19 11/29/19 11/29/19 11/29/19 23:20 00:40 01:21 01:46 Temp 36.5 36.84010 Pulse 86 86 58 61 Resp 20 20 14 14 B/P (MAP) 165/90 (115) 165/90 Pulse Ox 96 96 100 97 O2 Delivery Room Air Room Air FiO2 21 21 11/29/19 02:24 Temp 36.6 Pulse 60 Resp 14 B/P (MAP) 133/83 Pulse Ox 99 O2 Delivery Mechanical Ventilator Blood Pressure Mean: 115 Progress Progress Note #1: Time: 00:49 Progress Note Patient fairly rapidly had a decrease in alertness to the extent that she became unresponsive and apneic, breathing only about 5 times per minute. She was maintaining her airway and oxygen saturations. Given the rapid decline and no response to Narcan 1 mg IV, intubation was felt necessary for protection of her airway. Patient was intubated using etomidate and succinylcholine for induction. There were no complications. I discussed the patient's situation with her nephew who requested transfer to [facility] as our facility is on ICU diversion due to lack of patient beds. Patient has received a liter of IV normal saline. Labs were grossly unremarkable. Drug screen was positive only for benzodiazepines. Progress Note #2: Time: 02:25 Progress Note Remainder of the ER course was unremarkable. Patient remained stable on ventila tor support. CT of the head and cervical spine was negative. Sedation was maintained with a propofol drip. A second liter of IV fluid was infused. Patient was transferred to [place] by [facility]. A report was filed with poison control. Initial ECG Impression Date: Nov 29, 2019 Initial ECG Impression Time: 23:21 Initial ECG Rate: 81 Initial ECG Rhythm: Normal Sinus Initial ECG Intervals: Normal Initial ECG Impression: Normal Comment Normal sinus rhythm with no ST elevation or depression. No abnormal intervals or axis deviation. Diagnostic Imaging Diagonstic Imaging: Xray Plain Films/CT/US/NM/MRI: chest Comments Chest x-ray viewed by me. Report not yet available. There is an NG tube looped in the stomach. The ET tube is near the camille. Diagonstic Imaging: CT Plain Films/CT/US/NM/MRI: c-spine, head Comments CT head and C-spine viewed by me. Report not yet available. There is a cervical spine fusion with hardware. No acute injury identified. No intracranial abnormality appreciated by the ER provider. Departure Impression Primary Impression: Unresponsive state Additional Impressions: Baclofen overdose Qualified Codes: T42.8X4A - Poisoning by antiparkinsonism drugs and other central muscle-tone depressants, undetermined, initial encounter Overdose of benzodiazepine Qualified Codes: T42.4X4A - Poisoning by benzodiazepines, undetermined, initial encounter Disposition: 02 XFER SHT-TRM HOSP Condition: Improved Transfer Transfer Reason: Diversion Time Spoke to Accepting Phy: 00:42 Transfer Progress Notes Discussed with Dr. Galeas, layup worker at [facility] Transfer Time: 02:25 [facility]. Referrals: MARY JO SALVADOR MD (PCP) Primary Care Physician [facility] (Family) Primary Care Physician Copy Copies To 1: MARY JO SALVADOR MD, JOSHUA T MD Nov 29, 2019 00:51
[2019-11-29 01:21] VITALS: BP 129/81
[2019-11-29] MEDS ORDERED: NS IV 1000 ML 1,000 ML IV STA (01:28)
[2019-11-29] MEDS ORDERED: SUCCINYLCHOLINE INJ 100 MG/5 ML SYR INJ ONE (01:30)
[2019-11-29] MEDS ORDERED: ETOMIDATE IV SOLN 20 MG/10 ML VIAL IV ONE (01:30)
[2019-11-29 01:46] VITALS: BP 118/74
[2019-11-29 02:24] VITALS: BP 133/83
--- NOTE | 2019-11-29 06:15 | Diagnostic Imaging Report ---
PROCEDURE: CT head and CT cervical spine without contrast. TECHNIQUE: Multiple contiguous axial images were obtained through the brain and cervical spine without the use of intravenous contrast. Sagittal and coronal reformations through the cervical spine were then performed. Auto Exposure Controls were utilized during the CT exam to meet ALARA standards for radiation dose reduction. INDICATION: Altered mental status. Comparison is made with prior head CT from 09/25/2019. CT HEAD: The ventricles and sulci are within normal limits. No sulcal effacement or midline shift is detected. No acute intra-axial or extra-axial hemorrhage is detected. Cisterns are patent. Patient does have an NG tube. There is some mucosal thickening involving multiple ethmoid air cells. IMPRESSION: No acute intracranial process is detected. CT cervical spine: ET tube and NG tube are in place. ET tube does appear to be low in position entering the right mainstem bronchus. This should be pulled back. Postop changes of anterior cervical fusion is noted with anterior plate extending from C5 to C7. Hardware appears to be intact without fracture or loosening. There is multilevel degenerative disc disease. There is disc space narrowing and marginal spurring noted. Multilevel facet arthropathy is seen. Odontoid is intact. IMPRESSION: 1. Anterior cervical fusion. There is multilevel cervical spondylosis. No acute bony abnormality is detected. No acute fracture seen. 2. ET tube is low in position entering the right mainstem bronchus. Dictated by: Dictated on workstation # [id number]
--- NOTE | 2019-11-29 07:30 | Diagnostic Imaging Report ---
EXAMINATION: Chest radiograph, portable AP view. DATE: 11/29/2019 12:57 AM hours. INDICATION: 69-year-old female, intubation. COMPARISON: September 27, 2019. FINDINGS: There is cervical spine hardware. The endotracheal tube is approximately 2.1 cm above the camille. The nasogastric tube is coiled within the stomach. There is a left-sided venous line overlying the upper SVC. Stable overall appearance of the cardiomediastinal silhouette. There is no identified pneumothorax. There is no large pleural effusion. There is no identified interval focal airspace consolidation. There are limitations of this exam given the very large field of view of imaging. IMPRESSION: 1. Limitations of the exam given the very large field of view of imaging. 2. No identified interval acute cardiopulmonary abnormality. 3. Interval placement of endotracheal tube and nasogastric tubes as above without apparent complication. Dictated by: Dictated on workstation # [id number]
== END 2019-11-29 02:30 | disposition short-term general hospital (02) ==
LOC: EDUNIT# 23:21 → ER 23:26
DX: T42.8X1A Poisoning by antiparkinsonism drugs and other central muscle-tone depressants, accidental (unintentional), initial encounter (principal); T42.4X1A Poisoning by benzodiazepines, accidental (unintentional), initial encounter; R40.20 Unspecified coma; F31.9 Bipolar disorder, unspecified; G43.909 Migraine, unspecified, not intractable, without status migrainosus; F41.9 Anxiety disorder, unspecified; K21.9 Gastro-esophageal reflux disease without esophagitis; Z85.3 Personal history of malignant neoplasm of breast; Z88.5 Allergy status to narcotic agent; Z87.891 Personal history of nicotine dependence; Z98.51 Tubal ligation status
CPT/HCPCS: 31500; 36415; 51702; 70450; 71045; 72125; 80053; 80306; 80320; 81000; 83735; 85025; 87088; 93005; 94002; 96361; 96365; 96375

== ENCOUNTER 2020-06-21 03:01 | Emergency (ER) | payer MEDICARE, MEDICAID ==
[~2020-06-21] VITALS: Ht 154.9 cm; Wt 72.5 kg
[~2020-06-21 03:01] MED LIST changes: +ALEN70TA5; +ALPR1TAB7; +BACL20TA; +MIRT15TA6
--- OUTSIDE RECORDS SUMMARY | 2020-06-21 03:07 | XMS REPORT | Continuity of Care Document ---
Demographics Preferred Language Unknown Marital Status Unknown Jain Affiliation Unknown Race Unknown Ethnic Group Unknown Author Organization Unknown Address Unknown Phone Unavailable Allergies Active Description Code Type Severity Reaction Onset Reported/Identified Relationship to Patient Clinical Status Yes hydrocodone [id number] Drug Aller gy Unknown HALLUCINATIONS 02/06/2018 Yes morphine [id number] Drug Allergy Unknown MIGRAINE 02/06/2018 Yes tramadol [id number] Drug Allergy Unknown HALLUCINATIONS 02/06/2018 Medications There is no data. Problems Date Dx Coded Attending Type Code Diagnosis Diagnosed By 06/14/2010 F 293.0 DELI RIUM DUE TO CONDITIONS CLASSIFIED ELSEWHERE 06/14/2010 F 780.79 Fat igue and malaise, other 01/02/2018 GUILLERMINA CORTES DO Ot R10.2 PELVIC AND PERINEAL PAIN 01/23/2018 GUILLERMINA CORTES DO Ot R10.2 PELVIC AND PERINEAL PAIN 02/04/2018 CECY TREVIZO DO Ot R19. 4 CHANGE IN BOWEL HABIT 02/04/2018 CECY TREVIZO DO Ot Z01.818 ENCOUNTER FOR OTHER PREPROCEDURAL EXAMIN 02/05/2018 CECY TREVIZO DO Ot R19. 4 CHANGE IN BOWEL HABIT 02/05/2018 CECY TREVIZO DO Ot Z01.818 ENCOUNTER FOR OTHER PREPROCEDURAL EXAMIN 02/11/2018 CECY TREVIZO DO Ot B19. 20 UNSPECIFIED VIRAL HEPATITIS C WITHOUT HE 02/11/2018 CECY TREVIZO DO Ot F31. 9 BIPOLAR DISORDER, UNSPECIFIED 02/11/2018 CECY TREVIZO DO Ot F41. 9 ANXIETY DISORDER, UNSPECIFIED 02/11/2018 CECY TREVIZO DO Ot K21. 9 GASTRO-ESOPHAGEAL REFLUX DISEASE WITHOUT 02/11/2018 CECY TREVIZO DO Ot K25. 9 GASTRIC ULCER, UNSP ACUTE OR CHRONIC, 02/11/2018 CECY TREVIZO DO Ot K29. 70 GASTRITIS, UNSPECIFIED, WITHOUT BLEEDING 02/11/2018 CECY TREVIZO DO Ot K44. 9 DIAPHRAGMATIC HERNIA WITHOUT OBSTRUCTION 02/11/2018 CECY TREVIZO DO Ot K59. 09 OTHER CONSTIPATION 02/11/2018 CECY TREVIZO DO Ot Z79. 82 PULPER OPERATOR (CURRENT) USE OF ASPIRIN 02/11/2018 CECY TREVIZO DO Ot Z79.899 OTHER PULPER OPERATOR (CURRENT) DRUG THERAPY 02/11/2018 CECY TREVIZO DO Ot Z85. 3 PERSONAL HISTORY OF MALIGNANT NEOPLASM O 02/11/2018 CECY TREVIZO DO Ot Z86.010 PERSONAL HISTORY OF COLONIC POLYPS 02/11/2018 CECY TREVIZO DO Ot Z87.891 PERSONAL HISTORY OF NICOTINE DEPENDENCE 02/11/2018 CECY TREVIZO DO Ot Z90. 13 ACQUIRED ABSENCE OF BILATERAL BREASTS AN 02/12/2018 CECY TREVIZO DO Ot B19. 20 UNSPECIFIED VIRAL HEPATITIS C WITHOUT HE 02/12/2018 CECY TREVIZO DO Ot F31. 9 BIPOLAR DISORDER, UNSPECIFIED 02/12/2018 CECY TREVIZO DO Ot F41. 9 ANXIETY DISORDER, UNSPECIFIED 02/12/2018 CECY TREVIZO DO Ot K21. 9 GASTRO-ESOPHAGEAL REFLUX DISEASE WITHOUT 02/12/2018 CECY TREVIZO DO Ot K25. 9 GASTRIC ULCER, UNSP ACUTE OR CHRONIC, 02/12/2018 CECY TREVIZO DO Ot K29. 70 GASTRITIS, UNSPECIFIED, WITHOUT BLEEDING 02/12/2018 CECY TREVIZO DO Ot K44. 9 DIAPHRAGMATIC HERNIA WITHOUT OBSTRUCTION 02/12/2018 CECY TREVIZO DO Ot K59. 09 OTHER CONSTIPATION 02/12/2018 CECY TREVIZO DO Ot Z79. 82 DETENTION (CURRENT) USE OF ASPIRIN 02/12/2018 CECY TREVIZO DO Ot Z79.899 OTHER DETENTION (CURRENT) DRUG THERAPY 02/12/2018 CECY TREVIZO DO Ot Z85. 3 PERSONAL HISTORY OF MALIGNANT NEOPLASM O 02/12/2018 CECY TREVIZO DO Ot Z86.010 PERSONAL HISTORY OF COLONIC POLYPS 02/12/2018 CECY TREVIZO DO Ot Z87.891 PERSONAL HISTORY OF NICOTINE DEPENDENCE 02/12/2018 CECY TREVIZO DO Ot Z90. 13 ACQUIRED ABSENCE OF BILATERAL BREASTS AN 02/19/2018 CECY TREVIZO DO Ot B19. 20 UNSPECIFIED VIRAL HEPATITIS C WITHOUT HE 02/19/2018 CECY TREVIZO DO Ot F31. 9 BIPOLAR DISORDER, UNSPECIFIED 02/19/2018 CECY TREVIZO DO Ot F41. 9 ANXIETY DISORDER, UNSPECIFIED 02/19/2018 CECY TREVIZO DO Ot K21. 9 GASTRO-ESOPHAGEAL REFLUX DISEASE WITHOUT 02/19/2018 CECY TREVIZO DO Ot K25. 9 GASTRIC ULCER, UNSP ACUTE OR CHRONIC, 02/19/2018 CECY TREVIZO DO Ot K29. 70 GASTRITIS, UNSPECIFIED, WITHOUT BLEEDING 02/19/2018 CECY TREVIZO DO Ot K44. 9 DIAPHRAGMATIC HERNIA WITHOUT OBSTRUCTION 02/19/2018 CECY TREVIZO DO Ot K59. 09 OTHER CONSTIPATION 02/19/2018 CECY TREVIZO DO Ot Z79. 82 DETENTION (CURRENT) USE OF ASPIRIN 02/19/2018 CECY TREVIZO DO Ot Z79.899 OTHER PULPER OPERATOR (CURRENT) DRUG THERAPY 02/19/2018 CECY TREVIZO DO Ot Z85. 3 PERSONAL HISTORY OF MALIGNANT NEOPLASM O 02/19/2018 CECY TREVIZO DO Ot Z86.010 PERSONAL HISTORY OF COLONIC POLYPS 02/19/2018 CECY TREVIZO DO Ot Z87.891 PERSONAL HISTORY OF NICOTINE DEPENDENCE 02/19/2018 CECY TREVIZO DO Ot Z90. 13 ACQUIRED ABSENCE OF BILATERAL BREASTS AN 02/20/2018 CECY TREVIZO DO Ot B19. 20 UNSPECIFIED VIRAL HEPATITIS C WITHOUT HE 02/20/2018 CECY TREVIZO DO Ot F31. 9 BIPOLAR DISORDER, UNSPECIFIED 02/20/2018 CECY TREVIZO DO Ot F41. 9 ANXIETY DISORDER, UNSPECIFIED 02/20/2018 CECY TREVIZO DO Ot K21. 9 GASTRO-ESOPHAGEAL REFLUX DISEASE WITHOUT 02/20/2018 CECY TREVIZO DO Ot K25. 9 GASTRIC ULCER, UNSP ACUTE OR CHRONIC, 02/20/2018 CECY TREVIZO DO Ot K29. 70 GASTRITIS, UNSPECIFIED, WITHOUT BLEEDING 02/20/2018 CECY TREVIZO DO Ot K44. 9 DIAPHRAGMATIC HERNIA WITHOUT OBSTRUCTION 02/20/2018 CECY TREVIZO DO Ot K59. 09 OTHER CONSTIPATION 02/20/2018 CECY TREVIZO DO Ot Z79. 82 PULPER OPERATOR (CURRENT) USE OF ASPIRIN 02/20/2018 CECY TREVIZO DO Ot Z79.899 OTHER PULPER OPERATOR (CURRENT) DRUG THERAPY 02/20/2018 CECY TREVIZO DO Ot Z85. 3 PERSONAL HISTORY OF MALIGNANT NEOPLASM O 02/20/2018 CECY TREVIZO DO Ot Z86.010 PERSONAL HISTORY OF COLONIC POLYPS 02/20/2018 CECY TREVIZO DO Ot Z87.891 PERSONAL HISTORY OF NICOTINE DEPENDENCE 02/20/2018 CECY TREVIZO DO Ot Z90. 13 ACQUIRED ABSENCE OF BILATERAL BREASTS AN 02/20/2018 CECY TREVIZO DO Ot B19. 20 UNSPECIFIED VIRAL HEPATITIS C WITHOUT HE 02/20/2018 CECY TREVIZO DO Ot F31. 9 BIPOLAR DISORDER, UNSPECIFIED 02/20/2018 CECY TREVIZO DO Ot F41. 9 ANXIETY DISORDER, UNSPECIFIED 02/20/2018 CECY TREVIZO DO Ot K21. 9 GASTRO-ESOPHAGEAL REFLUX DISEASE WITHOUT 02/20/2018 CECY TREVIZO DO Ot K25. 9 GASTRIC ULCER, UNSP ACUTE OR CHRONIC, 02/20/2018 CECY RTEVIZO DO Ot K29. 70 GASTRITIS, UNSPECIFIED, WITHOUT BLEEDING 02/20/2018 CECY TREVIZO DO Ot K44. 9 DIAPHRAGMATIC HERNIA WITHOUT OBSTRUCTION 02/20/2018 CECY TREVIZO DO Ot K59. 09 OTHER CONSTIPATION 02/20/2018 CECY TREVIZO DO Ot Z79. 82 PULPER OPERATOR (CURRENT) USE OF ASPIRIN 02/20/2018 CECY TREVIZO DO Ot Z79.899 OTHER PULPER OPERATOR (CURRENT) DRUG THERAPY 02/20/2018 CECY TREVIZO DO Ot Z85. 3 PERSONAL HISTORY OF MALIGNANT NEOPLASM O 02/20/2018 CECY TREVIZO DO Ot Z86.010 PERSONAL HISTORY OF COLONIC POLYPS 02/20/2018 CECY TREVIZO DO Ot Z87.891 PERSONAL HISTORY OF NICOTINE DEPENDENCE 02/20/2018 CECY TREVIZO DO Ot Z90. 13 ACQUIRED ABSENCE OF BILATERAL BREASTS AN 03/25/2019 MODESTO GILLIAM, MARY JO Sprague Ot M81 .0 AGE-RELATED OSTEOPOROSIS W/O CURRENT PAT 03/25/2019 MARY JO SALVADOR MD Ot M85.89 OTH DISRD OF BONE DENSITY AND STRUCTURE, 03/25/2019 MARY JO SALVADOR MD Ot Z13.820 ENCOUNTER FOR SCREENING FOR OSTEOPOROSIS 03/30/2019 MARY JO SALVADOR MD Ot M81 .0 AGE-RELATED OSTEOPOROSIS W/O CURRENT PAT 03/30/2019 MARY JO SALVADOR MD, Ot M85.89 OTH DISRD OF BONE DENSITY AND STRUCTURE, 03/30/2019 MARY JO SALVADOR MD, Ot Z13.820 ENCOUNTER FOR SCREENING FOR OSTEOPOROSIS 04/14/2019 MARY JO SALVADOR MD, Ot M81 .0 AGE-RELATED OSTEOPOROSIS W/O CURRENT PAT 04/14/2019 MARY JO SALVADOR MD, Ot M85.89 OTH DISRD OF BONE DENSITY AND STRUCTURE, 04/14/2019 MARY JO SALVADOR MD, Ot Z13.820 ENCOUNTER FOR SCREENING FOR OSTEOPOROSIS 09/27/2019 KITTY GILLIAM, NICHOLAS Donnelly Ot F31. 9 BIPOLAR DISORDER, UNSPECIFIED 09/27/2019 KITTY GILLIAM, NICHOLAS Donnelly Ot G43.909 MIGRAINE, UNSP, NOT INTRACTABLE, WITHOUT 09/27/2019 KITTY GILLIAM, NICHOLAS Donnelly Ot G47. 00 INSOMNIA, UNSPECIFIED 09/27/2019 NICHOLAS TANG MD Ot G89. 29 OTHER CHRONIC PAIN 09/27/2019 NICHOLAS TANG MD Ot K21. 9 GASTRO-ESOPHAGEAL REFLUX DISEASE WITHOUT 09/27/2019 NICHOLAS TANG MD Ot K59. 09 OTHER CONSTIPATION 09/27/2019 KITTY GILLIAM, NICHOLAS Donnelly Ot M19. 90 UNSPECIFIED OSTEOARTHRITIS, UNSPECIFIED 09/27/2019 NICHOLAS TANG MD Ot M54. 9 DORSALGIA, UNSPECIFIED 09/27/2019 KITTY GILLIAM, NICHOLAS Donnelly Ot T42.4X1A POISONING BY BENZODIAZEPINES, ACCIDENTAL 09/27/2019 KITTY GILLIAM, NICHOLAS Donnelly Ot Z85. 3 PERSONAL HISTORY OF MALIGNANT NEOPLASM O 09/27/2019 KITTY GILLIAM, NICHOLAS Donnelly Ot Z87.891 PERSONAL HISTORY OF NICOTINE DEPENDENCE 09/27/2019 NICHOLAS TANG MD Ot Z92. 21 PERSONAL HISTORY OF ANTINEOPLASTIC CHEMO 09/27/2019 NICHOLAS TANG MD Ot Z98. 51 TUBAL LIGATION STATUS 09/28/2019 GUILLERMINA CORTES DO S Ot R10.2 PELVIC AND PERINEAL PAIN 09/28/2019 MARY JO SALVADOR MD Ot M81 .0 AGE-RELATED OSTEOPOROSIS W/O CURRENT PAT 09/28/2019 MARY JO SALVADOR MD Ot M85.89 OTH DISRD OF BONE DENSITY AND STRUCTURE, 09/28/2019 MARY JO SALVADOR MD Ot Z13.820 ENCOUNTER FOR SCREENING FOR OSTEOPOROSIS 11/29/2019 MARCO NEWMAN MD, Ot F31.9 BIPOLAR DISORDER, UNSPECIFIED 11/29/2019 MARCO NEWMAN MD, Ot F41.9 ANXIETY DISORDER, UNSPECIFIED 11/29/2019 MARCO NEWMAN MD Ot G43.909 MIGRAINE, UNSP, NOT INTRACTABLE, WITHOUT 11/29/2019 MARCO NEWMAN MD Ot K21.9 GASTRO-ESOPHAGEAL REFLUX DISEASE WITHOUT 11/29/2019 MARCO NEWMAN MD Ot R40.20 UNSPECIFIED COMA 11/29/2019 MARCO NEWMAN MD Ot R41.82 ALTERED MENTAL STATUS, UNSPECIFIED 11/29/2019 MARCO NEWMAN MD, Ot T42.4X1A POISONING BY BENZODIAZEPINES, ACCIDENTAL 11/29/2019 MARCO NEWMAN MD, Ot T42.8X1A POISN BY ANTIPARKNS DRUG/CENTR [facility] 11/29/2019 MARCO NEWMAN MD Ot Z85.3 PERSONAL HISTORY OF MALIGNANT NEOPLASM O 11/29/2019 MARCO NEWMAN MD Ot Z87.891 PERSONAL HISTORY OF NICOTINE DEPENDENCE 11/29/2019 MARCO NEWMAN MD, Ot Z88.5 ALLERGY STATUS TO NARCOTIC AGENT STATUS 11/29/2019 MRACO NEWMAN MD Ot Z98.51 TUBAL LIGATION STATUS 12/05/2019 MARCO NEWMAN MD, Ot F31.9 BIPOLAR DISORDER, UNSPECIFIED 12/05/2019 MARCO NEWMAN MD, Ot F41.9 ANXIETY DISORDER, UNSPECIFIED 12/05/2019 MARCO NEWMAN MD Ot G43.909 MIGRAINE, UNSP, NOT INTRACTABLE, WITHOUT 12/05/2019 MARCO NEWMAN MD Ot K21.9 GASTRO-ESOPHAGEAL REFLUX DISEASE WITHOUT 12/05/2019 MARCO NEWMAN MD Ot R40.20 UNSPECIFIED COMA 12/05/2019 ARMANDO NEWMAN MDSHUA T Ot R41.82 ALTERED MENTAL STATUS, UNSPECIFIED 12/05/2019 MARCO NEWMAN MD Ot T42.4X1A POISONING BY BENZODIAZEPINES, ACCIDENTAL 12/05/2019 TRENT GILLIAM, MARCO Cline Ot T42.8X1A POISN BY ANTIPARKNS DRUG/CENTR [facility] [place] 12/05/2019 MARCO NEWMAN MD Ot Z85.3 PERSONAL HISTORY OF MALIGNANT NEOPLASM O 12/05/2019 TRENT GILLIAM, MARCO Cline Ot Z87.891 PERSONAL HISTORY OF NICOTINE DEPENDENCE 12/05/2019 TRENT GILLIAM, MARCO Cline Ot Z88.5 ALLERGY STATUS TO NARCOTIC AGENT STATUS 12/05/2019 TRENT GILLIAM, MARCO Cline Ot Z98.51 TUBAL LIGATION STATUS 12/11/2019 TRENT GILLIAM, MARCO Cline Ot F31.9 BIPOLAR DISORDER, UNSPECIFIED 12/11/2019 TRENT GILLIAM, MARCO Cline Ot F41.9 ANXIETY DISORDER, UNSPECIFIED 12/11/2019 TRENT GILLIAM, MARCO Cline Ot G43.909 MIGRAINE, UNSP, NOT INTRACTABLE, WITHOUT 12/11/2019 MARCO NEWMAN MD Ot K21.9 GASTRO-ESOPHAGEAL REFLUX DISEASE WITHOUT 12/11/2019 TRENT GILLIAM, MARCO Cline Ot R40.20 UNSPECIFIED COMA 12/11/2019 MARCO NEWMAN MD Ot R41.82 ALTERED MENTAL STATUS, UNSPECIFIED 12/11/2019 MARCO NEWMAN MD Ot T42.4X1A POISONING BY BENZODIAZEPINES, ACCIDENTAL 12/11/2019 TRENT GILLIAM, MARCO Cline Ot T42.8X1A POISN BY ANTIPARKNS DRUG/CENTR [facility] [place] 12/11/2019 MARCO NEWMAN MD Ot Z85.3 PERSONAL HISTORY OF MALIGNANT NEOPLASM O 12/11/2019 TRENT GILLIAM, MARCO Cline Ot Z87.891 PERSONAL HISTORY OF NICOTINE DEPENDENCE 12/11/2019 TRENT GILLIAM, MARCO Cline Ot Z88.5 ALLERGY STATUS TO NARCOTIC AGENT STATUS 12/11/2019 TRENT GILLIAM, MARCO Cline Ot Z98.51 TUBAL LIGATION STATUS 01/05/2020 TRENT GILLIAM, MARCO Cline Ot F31.9 BIPOLAR DISORDER, UNSPECIFIED 01/05/2020 TRENT GILLIAM, MARCO Cline Ot F41.9 ANXIETY DISORDER, UNSPECIFIED 01/05/2020 TRENT GILLIAM, MARCO Cline Ot G43.909 MIGRAINE, UNSP, NOT INTRACTABLE, WITHOUT 01/05/2020 MARCO NEWMAN MD Ot K21.9 GASTRO-ESOPHAGEAL REFLUX DISEASE WITHOUT 01/05/2020 TRENT GILLIAM, MARCO Cline Ot R40.20 UNSPECIFIED COMA 01/05/2020 TRENT GILLIAM, MARCO Cline Ot R41.82 ALTERED MENTAL STATUS, UNSPECIFIED 01/05/2020 TRENT GILLIAM, MARCO Cline Ot T42.4X1A POISONING BY BENZODIAZEPINES, ACCIDENTAL 01/05/2020 TRENT GILLIAM, MARCO Cline Ot T42.8X1A POISN BY ANTIPARKNS DRUG/CENTR [facility]-TONE 01/05/2020 MARCO NEWMAN MD Ot Z85.3 PERSONAL HISTORY OF MALIGNANT NEOPLASM O 01/05/2020 TRENT GILLIAM, MARCO Cline Ot Z87.891 PERSONAL HISTORY OF NICOTINE DEPENDENCE 01/05/2020 TRENT GILLIAM, MARCO Cline Ot Z88.5 ALLERGY STATUS TO NARCOTIC AGENT STATUS 01/05/2020 MARCO NEWMAN MD Ot Z98.51 TUBAL LIGATION STATUS Procedures Code Description Performed By Per formed On [id number] IN SERTION OF ENDOTRACHEAL AIRWAY INTO TR 09/25/2019 [id number] RE SPIRATORY VENTILATION, 24- 96 CONSECUTI 09/25/2019 Results Test Result Range PDM - ATS (PROFILE 8 WITH CONFIRMATION) - 02/25/18 09:40 Prescribed Drug 1 Xanax(TM) NRG Creatinine 126.2 mg/dL > or = 20.0 pH 7.81 4.5 - 9.0 Oxidant NEGATIVE mcg/mL <200 Amphetamines NEGATIVE ng/mL <500 medMATCH Amphetamines CONSISTENT NRG Benzodiazepines POSITIVE ng/mL <100 Marijuana Metabolite NEGATIVE ng/mL <20 medMATCH Marijuana Metab CONSISTENT NRG Cocaine Metabolite NEGATIVE ng/mL <150 medMATCH Cocaine Metab CONSISTENT NRG Opiates NEGATIVE ng/mL <100 medMATCH Opiates CONSISTENT NRG Oxycodone NEGATIVE ng/mL <100 medMATCH Oxycodone CONSISTENT NRG COMMENT NRG Buprenorphine NEGATIVE ng/mL <5 MDMA NEGATIVE ng/mL <500 medMATCH MDMA CONSISTENT NRG Alcohol Metabolites NEGATIVE ng/mL <500 medMATCH Alcohol Metab CONSISTENT NRG 6 Acetylmorphine NEGATIVE ng/mL <10 medMATCH 6 Acetylmorphine CONSISTENT NR G Alphahydroxyalprazolam 807 ng/mL <25 medMATCH aOH alprazolam CONSISTENT NRG Alphahydroxymidazolam NEGATIVE ng/mL < 50 medMATCH aOH midazolam CONSISTENT NRG Alphahydroxytriazolam NEGATIVE ng/mL < 50 medMATCH aOH triazolam CONSISTENT NRG Aminoclonazepam NEGATIVE ng/mL <25 medMATCH Aminoclonazepam CONSISTENT NRG Hydroxyethylflurazepam NEGATIVE ng/mL <50 medMATCH OH,Et flurazepam CONSISTENT NR G Lorazepam NEGATIVE ng/mL <50 medMATCH Lorazepam CONSISTENT NRG Nordiazepam NEGATIVE ng/mL <50 medMATCH Nordiazepam CONSISTENT NRG Oxazepam NEGATIVE ng/mL <50 medMATCH Oxazepam CONSISTENT NRG Temazepam NEGATIVE ng/mL <50 medMATCH Temazepam CONSISTENT NRG Prescribed Drug 2 Gabapentin NRG medMATCH Buprenorphine CONSISTENT NRG LIPID PANEL - 03/05/19 09:52 CHOLESTEROL, TOTAL 201 mg/dL <200 HDL CHOLESTEROL 72 mg/dL >50 TRIGLYCERIDES 92 mg/dL <150 LDL-CHOLESTEROL 110 mg/dL (calc) NRG CHOL/HDLC RATIO 2.8 (calc) <5.0 NON HDL CHOLESTEROL 129 mg/dL (calc) <13 0 VITAMIN D, 25-H - 05/07/19 15:53 VITAMIN D,25-OH,TOTAL,IA 19 ng/mL 30-10 0 CMP - 08/11/19 16:20 GLUCOSE 86 mg/dL 65-99 UREA NITROGEN (BUN) 25 mg/dL 7-25 CREATININE 0.93 mg/dL 0.50-0.99 eGFR NON-AFR. INDONESIAN 64 mL/min/1.73m2 > OR = 60 eGFR 74 mL/min/1.73m2 > OR = 60 BUN/CREATININE RATIO NOT APPLICABLE (calc) 6-22 SODIUM 141 mmol/L 135-146 POTASSIUM 4.5 mmol/L 3.5-5.3 CHLORIDE 104 mmol/L 98-110 CARBON DIOXIDE 26 mmol/L 20-32 CALCIUM 9.8 mg/dL 8.6-10.4 PROTEIN, TOTAL 7.9 g/dL 6.1-8.1 ALBUMIN 4.7 g/dL 3.6-5.1 GLOBULIN 3.2 g/dL (calc) 1.9-3.7 ALBUMIN/GLOBULIN RATIO 1.5 (calc) 1.0-2. 5 BILIRUBIN, TOTAL 0.4 mg/dL 0.2-1.2 ALKALINE PHOSPHATASE 91 U/L 33-130 AST 17 U/L 10-35 ALT 16 U/L 6-29 Capillary blood glucose measurement by g lucometer (mass/volume) - 09/25/19 12:48 Capillary blood glucose measurement by glucometer (mas s/volume) 100 mg/dL 70-110 PT panel in platelet poor plasma by coag ulation assay - 09/25/19 12:50 Prothrombin time (PT) in platelet poor plasma by coagu lation assay 12.5 s 12.2-14.7 INR in platelet poor plasma or blood by coagulation as say 0.9 0.8-1.4 Activated partial thromboplastin time (a PTT) in platelet poor plasma bycoagulation assay - 09/25/19 12:50 Activated partial thromboplastin time (a PTT) in platelet poor plasma bycoagulation assay 28 s 24-35 Fibrin D-dimer FEU measurement in platel et poor plasma (mass/volume) - 09/25/19 12:50 Fibrin D-dimer FEU measurement in platelet poor plasma (mass/volume) 1.83 ug/mL 0.00-0.49 Complete blood count (CBC) with automate d white blood cell (WBC) differential - 09/25/19 12:50 Blood leukocytes automated count (number/volume) 5.7 10*3/uL 4.3-11.0 Blood erythrocytes automated count (number/volume) 4.26 10*6/uL 4.35-5.85 Venous blood hemoglobin measurement (mass/volume) 13.0 g/dL 11.5-16.0 Blood hematocrit (volume fraction) 41 % 35-52 Automated erythrocyte mean corpuscular volume 96 [ foz_us] 80-99 Automated erythrocyte mean corpuscular h emoglobin (mass per erythrocyte) 31 pg 25-34 Automated erythrocyte mean corpuscular h emoglobin concentration measurement (mass/volume) 32 g/dL 32-36 Automated erythrocyte distribution width ratio 14. 3 % 10.0- 14.5 Automated blood platelet count (count/volume) 235 10*3/uL 130-400 Automated blood platelet mean volume measurement 10.7 [foz_us] 7.4-10.4 Automated blood neutrophils/100 leukocytes 63 % 42-75 Automated blood lymphocytes/100 leukocytes 28 % 12-44 Blood monocytes/100 leukocytes 7 % 0-12 Automated blood eosinophils/100 leukocytes 2 % 0-10 Automated blood basophils/100 leukocytes 1 % 0-10 Blood neutrophils automated count (number/volume) 3.6 10*3 1.8-7.8 Blood lymphocytes automated count (number/volume) 1.6 10*3 1.0-4.0 Blood monocytes automated count (number/volume) 0. 4 10*3 0.0-1.0 Automated eosinophil count 0.1 10*3/uL 0 .0-0.3 Automated blood basophil count (count/volume) 0.0 10*3/uL 0.0-0.1 Comprehensive metabolic panel - 09/25/19 12:50 Serum or plasma sodium measurement (moles/volume) 143 mmol/L 135-145 Serum or plasma potassium measurement (moles/volume) 5.3 mmol/L 3.6-5.0 Serum or plasma chloride measurement (moles/volume) 110 mmol/L 98-107 Carbon dioxide 26 mmol/L 21-32 Serum or plasma anion gap determination (moles/volume) 7 mmol/L 5-14 Serum or plasma urea nitrogen measurement (mass/volume ) 14 mg/dL 7-18 Serum or plasma creatinine measurement (mass/volume) 0.75 mg/dL 0.60-1.30 Serum or plasma urea nitrogen/creatinine mass ratio 19 NRG Serum or plasma creatinine measurement w ith calculation of estimated glomerular filtration rate > NRG Serum or plasma glucose measurement (mass/volume) 101 mg/dL 70-105 Serum or plasma calcium measurement (mass/volume) 8.8 mg/dL 8.5-10.1 Serum or plasma total bilirubin measurement (mass/volu me) 0.2 mg/dL 0.1-1.0 Serum or plasma alkaline phosphatase xiomara surement (enzymatic activity/volume) 83 U/L 40-136 Serum or plasma aspartate aminotransfera se measurement (enzymatic activity/volume) 14 U/L 5-34 Serum or plasma alanine aminotransferase measurement (enzymatic activity/volume) 16 U/L 0-55 Serum or plasma protein measurement (mass/volume) 6.9 g/dL 6.4-8.2 Serum or plasma albumin measurement (mass/volume) 4.1 g/dL 3.2-4.5 CALCIUM CORRECTED 8.7 mg/dL 8.5-10.1 Serum or plasma troponin i.cardiac measu rement (mass/volume) - 09/25/19 12:50 Serum or plasma troponin i.cardiac measurement (mass/v olume) < ng/mL <0.028 Serum or plasma salicylates measurement (mass/volume) - 09/25/19 12:50 Serum or plasma salicylates measurement (mass/volume) < mg/dL 5.0-20.0 Serum or plasma acetaminophen measuremen t (mass/volume) - 09/25/19 12:50 Serum or plasma acetaminophen measurement (mass/volume ) < ug/mL 10-30 Serum or plasma ethanol measurement (mas s/volume) - 09/25/19 12:50 Serum or plasma ethanol measurement (mass/volume) < mg/dL <10 Arterial blood gas measurement - 9 12:56 Blood pCO2 61 mm[Hg] 35-45 Blood pO2 74 mm[Hg] 79-93 Arterial blood bicarbonate measurement (moles/volume) 27 mmol/L 23-27 Arterial blood base excess by calculation 0.7 mmol /L -2.5-2.5 Arterial blood oxygen saturation measurement 92 % 94-100 * Inhaled oxygen flow rate 15L NRG Arterial blood pH measurement with patient temperature correction 7.26 7.37-7.43 Arterial blood carbon dioxide, total measurement (mole s/volume) 29.4 mmol/L 21.0-31.0 Body site RR NRG Assessment of wrist artery patency prior to arterial p uncture YES-POS NRG Setting of ventilation mode NO NR G Measurement of body temperature 35.4 NRG Complete urinalysis with reflex to cultu re - 09/25/19 13:08 Urine color determination YELLOW NRG Urine clarity determination CLEAR NR G Urine pH measurement by test strip 6 5-9 Specific gravity of urine by test strip 1.010 1.016-1.022 Urine protein assay by test strip, semi-quantitative NEGATIVE NEGATIVE Urine glucose detection by automated test strip NE GATIVE NEGATIVE Erythrocytes detection in urine sediment by light micr oscopy NEGATIVE NEGATIVE Urine ketones detection by automated test strip NE GATIVE NEGATIVE Urine nitrite detection by test strip NEGATIVE NEGATIVE Urine total bilirubin detection by test strip NEGA TIVE NEGATIVE Urine urobilinogen measurement by automated test strip (mass/volume) NORMAL NORMAL Urine leukocyte esterase detection by dipstick NEG ATIVE NEGATIVE Automated urine sediment erythrocyte cou nt by microscopy (number/high power field) NONE NRG Automated urine sediment leukocyte count by microscopy (number/high power field) NONE NRG Bacteria detection in urine sediment by light microsco py NEGATIVE NRG Squamous epithelial cells detection in u rine sediment by light microscopy RARE NRG Crystals detection in urine sediment by light microsco py PRESENT NRG Casts detection in urine sediment by light microscopy NONE NRG Mucus detection in urine sediment by light microscopy NEGATIVE NRG Complete urinalysis with reflex to culture NO NRG Amorphous sediment detection in urine sediment by ligh t microscopy RARE ASHLEY URATES NRG Urine drug screening test - 09/25/19 13: 08 Urine phencyclidine detection by screening method NEGATIVE NEGATIVE Urine benzodiazepines detection by screening method POSITIVE NEGATIVE Urine cocaine detection NEGATIVE NEGATI VE Urine amphetamines detection by screening method N EGATIVE NEGATIVE Urine methamphetamine detection by screening method NEGATIVE NEGATIVE Urine cannabinoids detection by screening method N EGATIVE NEGATIVE Urine opiates detection by screening method NEGATI VE NEGATIVE Urine barbiturates detection NEGATIVE N EGATIVE Screening urine tricyclic antidepressants detection NEGATIVE NEGATIVE Urine methadone detection by screening method NEGA TIVE NEGATIVE Urine oxycodone detection NEGATIVE NEGA TIVE Urine propoxyphene detection NEGATIVE N EGATIVE Methicillin resistant Staphylococcus aur eus (MRSA) screening culture - 09/25/19 15:32 Methicillin resistant Staphylococcus aureus (MRSA) scr eening culture NEG NRG Capillary blood glucose measurement by g lucometer (mass/volume) - 09/25/19 17:56 Capillary blood glucose measurement by glucometer (mas s/volume) 89 mg/dL 70-110 Sputum Gram stain - 09/25/19 18:05 Sputum Gram stain MIXED BACTERLA EMIL NRG Bacterial sputum culture - 09/25/19 18:0 5 QUANTITY OF GROWTH . NRG Bacterial sputum culture USUAL RESP NRG Arterial blood gas measurement - 9 21:32 Blood pCO2 47 mm[Hg] 35-45 Blood pO2 118 mm[Hg] 79-93 Arterial blood bicarbonate measurement (moles/volume) 26 mmol/L 23-27 Arterial blood base excess by calculation 0.5 mmol /L -2.5-2.5 Arterial blood oxygen saturation measurement 96 % 94-100 * Inhaled oxygen flow rate SEE SPECIMEN COMMENT NRG Arterial blood pH measurement with patient temperature correction 7.35 7.37-7.43 Arterial blood carbon dioxide, total measurement (mole s/volume) 27.2 mmol/L 21.0-31.0 Body site LT RAD NRG Assessment of wrist artery patency prior to arterial p uncture YES-POS NRG Setting of ventilation mode YES NR G Measurement of body temperature 36 NRG Complete blood count (CBC) with automate d white blood cell (WBC) differential - 09/26/19 02:35 Blood leukocytes automated count (number/volume) 8.0 10*3/uL 4.3-11.0 Blood erythrocytes automated count (number/volume) 4.14 10*6/uL 4.35-5.85 Venous blood hemoglobin measurement (mass/volume) 12.5 g/dL 11.5-16.0 Blood hematocrit (volume fraction) 39 % 35-52 Automated erythrocyte mean corpuscular volume 95 [ foz_us] 80-99 Automated erythrocyte mean corpuscular h emoglobin (mass per erythrocyte) 30 pg 25-34 Automated erythrocyte mean corpuscular h emoglobin concentration measurement (mass/volume) 32 g/dL 32-36 Automated erythrocyte distribution width ratio 14. 6 % 10.0- 14.5 Automated blood platelet count (count/volume) 233 10*3/uL 130-400 Automated blood platelet mean volume measurement 10.2 [foz_us] 7.4-10.4 Automated blood neutrophils/100 leukocytes 80 % 42-75 Automated blood lymphocytes/100 leukocytes 14 % 12-44 Blood monocytes/100 leukocytes 5 % 0-12 Automated blood eosinophils/100 leukocytes 1 % 0-10 Automated blood basophils/100 leukocytes 0 % 0-10 Blood neutrophils automated count (number/volume) 6.4 10*3 1.8-7.8 Blood lymphocytes automated count (number/volume) 1.1 10*3 1.0-4.0 Blood monocytes automated count (number/volume) 0. 4 10*3 0.0-1.0 Automated eosinophil count 0.1 10*3/uL 0 .0-0.3 Automated blood basophil count (count/volume) 0.0 10*3/uL 0.0-0.1 Comprehensive metabolic panel - 09/26/19 02:35 Serum or plasma sodium measurement (moles/volume) 142 mmol/L 135-145 Serum or plasma potassium measurement (moles/volume) 4.3 mmol/L 3.6-5.0 Serum or plasma chloride measurement (moles/volume) 109 mmol/L 98-107 Carbon dioxide 22 mmol/L 21-32 Serum or plasma anion gap determination (moles/volume) 11 mmol/L 5-14 Serum or plasma urea nitrogen measurement (mass/volume ) 14 mg/dL 7-18 Serum or plasma creatinine measurement (mass/volume) 0.68 mg/dL 0.60-1.30 Serum or plasma urea nitrogen/creatinine mass ratio 21 NRG Serum or plasma creatinine measurement w ith calculation of estimated glomerular filtration rate > NRG Serum or plasma glucose measurement (mass/volume) 107 mg/dL 70-105 Serum or plasma calcium measurement (mass/volume) 8.1 mg/dL 8.5-10.1 Serum or plasma total bilirubin measurement (mass/volu me) 0.2 mg/dL 0.1-1.0 Serum or plasma alkaline phosphatase xiomara surement (enzymatic activity/volume) 77 U/L 40-136 Serum or plasma aspartate aminotransfera se measurement (enzymatic activity/volume) 14 U/L 5-34 Serum or plasma alanine aminotransferase measurement (enzymatic activity/volume) 13 U/L 0-55 Serum or plasma protein measurement (mass/volume) 6.4 g/dL 6.4-8.2 Serum or plasma albumin measurement (mass/volume) 3.7 g/dL 3.2-4.5 CALCIUM CORRECTED 8.3 mg/dL 8.5-10.1 Serum or plasma phosphate measurement (m ass/volume) - 09/26/19 02:35 Serum or plasma phosphate measurement (mass/volume) 3.8 mg/dL 2.3-4.7 Magnesium - 09/26/19 02:35 Magnesium 1.8 mg/dL 1.6-2.4 Lipid 1996 panel - 09/26/19 02:35 Serum or plasma triglyceride measurement (mass/volume) 130 mg/dL <150 Serum or plasma cholesterol measurement (mass/volume) 194 mg/dL < 200 Serum or plasma cholesterol in HDL measurement (mass/v olume) 65 mg/dL 40-60 Cholesterol in LDL [mass/volume] in serum or plasma by direct assay 105 mg/dL 1-129 Serum or plasma cholesterol in VLDL measurement (mass/ volume) 26 mg/dL 5-40 Arterial blood gas measurement - 9 03:00 Blood pCO2 44 mm[Hg] 35-45 Blood pO2 90 mm[Hg] 79-93 Arterial blood bicarbonate measurement (moles/volume) 25 mmol/L 23-27 Arterial blood base excess by calculation 0.2 mmol /L -2.5-2.5 Arterial blood oxygen saturation measurement 95 % 94-100 * Inhaled oxygen flow rate 25 NRG Arterial blood pH measurement with patient temperature correction 7.37 7.37-7.43 Arterial blood carbon dioxide, total measurement (mole s/volume) 26.6 mmol/L 21.0-31.0 Body site LT RAD NRG Assessment of wrist artery patency prior to arterial p uncture YES-POS NRG Setting of ventilation mode YES NR G Measurement of body temperature 35.8 NRG Complete blood count (CBC) with automate d white blood cell (WBC) differential - 09/27/19 03:00 Blood leukocytes automated count (number/volume) 7.9 10*3/uL 4.3-11.0 Blood erythrocytes automated count (number/volume) 3.79 10*6/uL 4.35-5.85 Venous blood hemoglobin measurement (mass/volume) 11.5 g/dL 11.5-16.0 Blood hematocrit (volume fraction) 36 % 35-52 Automated erythrocyte mean corpuscular volume 95 [ foz_us] 80-99 Automated erythrocyte mean corpuscular h emoglobin (mass per erythrocyte) 30 pg 25-34 Automated erythrocyte mean corpuscular h emoglobin concentration measurement (mass/volume) 32 g/dL 32-36 Automated erythrocyte distribution width ratio 14. 9 % 10.0- 14.5 Automated blood platelet count (count/volume) 214 10*3/uL 130-400 Automated blood platelet mean volume measurement 10.3 [foz_us] 7.4-10.4 Automated blood neutrophils/100 leukocytes 68 % 42-75 Automated blood lymphocytes/100 leukocytes 24 % 12-44 Blood monocytes/100 leukocytes 7 % 0-12 Automated blood eosinophils/100 leukocytes 1 % 0-10 Automated blood basophils/100 leukocytes 0 % 0-10 Blood neutrophils automated count (number/volume) 5.4 10*3 1.8-7.8 Blood lymphocytes automated count (number/volume) 1.9 10*3 1.0-4.0 Blood monocytes automated count (number/volume) 0. 6 10*3 0.0-1.0 Automated eosinophil count 0.0 10*3/uL 0 .0-0.3 Automated blood basophil count (count/volume) 0.0 10*3/uL 0.0-0.1 Whole blood basic metabolic panel - 09/02 06/19 03:00 Serum or plasma sodium measurement (moles/volume) 144 mmol/L 135-145 Serum or plasma potassium measurement (moles/volume) 3.8 mmol/L 3.6-5.0 Serum or plasma chloride measurement (moles/volume) 112 mmol/L 98-107 Carbon dioxide 20 mmol/L 21-32 Serum or plasma anion gap determination (moles/volume) 12 mmol/L 5-14 Serum or plasma urea nitrogen measurement (mass/volume ) 12 mg/dL 7-18 Serum or plasma creatinine measurement (mass/volume) 0.69 mg/dL 0.60-1.30 Serum or plasma urea nitrogen/creatinine mass ratio 17 NRG Serum or plasma creatinine measurement w ith calculation of estimated glomerular filtration rate > NRG Serum or plasma glucose measurement (mass/volume) 87 mg/dL 70-105 Serum or plasma calcium measurement (mass/volume) 8.1 mg/dL 8.5-10.1 Serum or plasma phosphate measurement (m ass/volume) - 09/27/19 03:00 Serum or plasma phosphate measurement (mass/volume) 2.8 mg/dL 2.3-4.7 Magnesium - 09/27/19 03:00 Magnesium 1.9 mg/dL 1.6-2.4 Complete urinalysis with reflex to cultu re - 11/28/19 23:30 Urine color determination YELLOW NRG Urine clarity determination CLEAR NR G Urine pH measurement by test strip 6.0 5-9 Specific gravity of urine by test strip 1.025 1.016-1.022 Urine protein assay by test strip, semi-quantitative NEGATIVE NEGATIVE Urine glucose detection by automated test strip NE GATIVE NEGATIVE Erythrocytes detection in urine sediment by light micr oscopy TRACE-I NEGATIVE Urine ketones detection by automated test strip NE GATIVE NEGATIVE Urine nitrite detection by test strip NEGATIVE NEGATIVE Urine total bilirubin detection by test strip NEGA TIVE NEGATIVE Urine urobilinogen measurement by automated test strip (mass/volume) 0.2 mg/dL < = 1.0 Urine leukocyte esterase detection by dipstick TRA CE NEGATIVE Automated urine sediment erythrocyte cou nt by microscopy (number/high power field) [HPF] NRG Automated urine sediment leukocyte count by microscopy (number/high power field) [HPF] NRG Bacteria detection in urine sediment by light microsco py MODERATE NRG Squamous epithelial cells detection in u rine sediment by light microscopy 2-5 NRG Crystals detection in urine sediment by light microsco py NONE NRG Casts detection in urine sediment by light microscopy NONE NRG Mucus detection in urine sediment by light microscopy MODERATE NRG Complete urinalysis with reflex to culture YES NRG Urine drug screening test - 11/28/19 23: 30 Urine phencyclidine detection by screening method NEGATIVE NEGATIVE Urine benzodiazepines detection by screening method POSITIVE NEGATIVE Urine cocaine detection NEGATIVE NEGATI VE Urine amphetamines detection by screening method N EGATIVE NEGATIVE Urine methamphetamine detection by screening method NEGATIVE NEGATIVE Urine cannabinoids detection by screening method N EGATIVE NEGATIVE Urine opiates detection by screening method NEGATI VE NEGATIVE Urine barbiturates detection NEGATIVE N EGATIVE Screening urine tricyclic antidepressants detection NEGATIVE NEGATIVE Urine methadone detection by screening method NEGA TIVE NEGATIVE Urine oxycodone detection NEGATIVE NEGA TIVE Urine propoxyphene detection NEGATIVE N EGATIVE Bacterial urine culture - 11/28/19 23:30 Bacterial urine culture [id number] NRG COLONY COUNT 40,000 CFU/ML NRG Complete blood count (CBC) with automate d white blood cell (WBC) differential - 11/28/19 23:32 Blood leukocytes automated count (number/volume) 5.9 10*3/uL 4.3-11.0 Blood erythrocytes automated count (number/volume) 4.09 10*6/uL 4.35-5.85 Venous blood hemoglobin measurement (mass/volume) 12.6 g/dL 11.5-16.0 Blood hematocrit (volume fraction) 39 % 35-52 Automated erythrocyte mean corpuscular volume 95 [ foz_us] 80-99 Automated erythrocyte mean corpuscular h emoglobin (mass per erythrocyte) 31 pg 25-34 Automated erythrocyte mean corpuscular h emoglobin concentration measurement (mass/volume) 33 g/dL 32-36 Automated erythrocyte distribution width ratio 14. 9 % 10.0- 14.5 Automated blood platelet count (count/volume) 268 10*3/uL 130-400 Automated blood platelet mean volume measurement 10.1 [foz_us] 7.4-10.4 Automated blood neutrophils/100 leukocytes 55 % 42-75 Automated blood lymphocytes/100 leukocytes 33 % 12-44 Blood monocytes/100 leukocytes 9 % 0-12 Automated blood eosinophils/100 leukocytes 3 % 0-10 Automated blood basophils/100 leukocytes 1 % 0-10 Blood neutrophils automated count (number/volume) 3.3 10*3 1.8-7.8 Blood lymphocytes automated count (number/volume) 2.0 10*3 1.0-4.0 Blood monocytes automated count (number/volume) 0. 5 10*3 0.0-1.0 Automated eosinophil count 0.2 10*3/uL 0 .0-0.3 Automated blood basophil count (count/volume) 0.0 10*3/uL 0.0-0.1 Comprehensive metabolic panel - 11/28/19 23:32 Serum or plasma sodium measurement (moles/volume) 143 mmol/L 135-145 Serum or plasma potassium measurement (moles/volume) 3.9 mmol/L 3.6-5.0 Serum or plasma chloride measurement (moles/volume) 107 mmol/L 98-107 Carbon dioxide 21 mmol/L 21-32 Serum or plasma anion gap determination (moles/volume) 15 mmol/L 5-14 Serum or plasma urea nitrogen measurement (mass/volume ) 22 mg/dL 7-18 Serum or plasma creatinine measurement (mass/volume) 0.96 mg/dL 0.60-1.30 Serum or plasma urea nitrogen/creatinine mass ratio 23 NRG Serum or plasma creatinine measurement w ith calculation of estimated glomerular filtration rate 58 NRG Serum or plasma glucose measurement (mass/volume) 89 mg/dL 70-105 Serum or plasma calcium measurement (mass/volume) 9.5 mg/dL 8.5-10.1 Serum or plasma total bilirubin measurement (mass/volu me) 0.3 mg/dL 0.1-1.0 Serum or plasma alkaline phosphatase xiomara surement (enzymatic activity/volume) 80 U/L 40-136 Serum or plasma aspartate aminotransfera se measurement (enzymatic activity/volume) 21 U/L 5-34 Serum or plasma alanine aminotransferase measurement (enzymatic activity/volume) 18 U/L 0-55 Serum or plasma protein measurement (mass/volume) 7.1 g/dL 6.4-8.2 Serum or plasma albumin measurement (mass/volume) 4.4 g/dL 3.2-4.5 CALCIUM CORRECTED 9.2 mg/dL 8.5-10.1 Magnesium - 11/28/19 23:32 Magnesium 2.3 mg/dL 1.6-2.4 Serum or plasma ethanol measurement (mas s/volume) - 11/28/19 23:32 Serum or plasma ethanol measurement (mass/volume) < mg/dL <10 PDM - BENZODIAZEPINES - 05/18/20 07:59 Prescribed Drug 1 Xanax(TM) NRG COMMENT NRG Alphahydroxyalprazolam 391 ng/mL <25 medMATCH aOH alprazolam CONSISTENT NRG Alphahydroxymidazolam NEGATIVE ng/mL <50 medMATCH aOH midazolam CONSISTENT NRG Alphahydroxytriazolam NEGATIVE ng/mL <50 medMATCH aOH triazolam CONSISTENT NRG Aminoclonazepam NEGATIVE ng/mL <25 medMATCH Aminoclonazepam CONSISTENT NRG Hydroxyethylflurazepam NEGATIVE ng/mL <5 0 medMATCH OH,Et flurazepam CONSISTENT NR G Lorazepam NEGATIVE ng/mL <50 medMATCH Lorazepam CONSISTENT NRG Nordiazepam NEGATIVE ng/mL <50 medMATCH Nordiazepam CONSISTENT NRG Oxazepam NEGATIVE ng/mL <50 medMATCH Oxazepam CONSISTENT NRG Temazepam NEGATIVE ng/mL <50 medMATCH Temazepam CONSISTENT NRG Encounters ACCT No. Visit Date/Time Discharge Status Pt. Type Provider Facility Loc./Unit Complaint [id number] 06/14/2010 00:41:00 Document Registration [id number] 11/28/2019 23:26:00 02:30:00 DIS Emergency MARCO NEWMAN MD [facility] ER CONFUSION [id number] 09/25/2019 14:43:00 13:15:00 DIS Inpatient NICHOLAS TANG MD [facility] ICU RESPIRATORY FAILURE,RADHA ZO OD [id number] 03/24/2019 07:35:00 019 23:59:59 CLS Outpatient MARY JO SALVADOR MD [facility] RAD OSTEOPOROSIS W/O CURREN T PATHOLOGICAL FX [id number] 11/07/2018 10:06:00 018 23:59:59 CLS Preadmit MARY JO SALVADOR MD [facility] REHAB CERVICAL DISC DISEASE [id number] 02/11/2018 07:33:00 018 11:00:00 DIS Outpatient TREVIZO CECY SALINAS [facility] ENDO PELVIC PAIN/CHRONIC CONSTIPATION/CHANGE IN BOWEL [id number] 02/04/2018 05:34:00 018 15:17:00 DIS Outpatient CECY TREVIZO DO [facility] PREOP COLONOSCOPY [id number] 01/01/2018 13:02:00 23:59:59 CLS Outpatient GUILLERMINA CORTES DO [facility] RAD R10.2 CHRONIC FEMALE P ELVIC PAIN [id number] 11/15/2009 00:00:00 009 23:59:59 [id number] 05/18/2020 08:15:00 05/18/2020 23:59: 59 CLS Outpatient MARY JO SALVADOR MD [facility] [id number] 05/18/2020 07:40:00 Document Registration [id number] 08/11/2019 16:00:00 Document Registration [id number] 05/07/2019 16:00:00 Document Registration [id number] 03/05/2019 09:00:00 Document Registration [id number] 02/25/2018 09:20:00 Document Registration
[2020-06-21 03:37] LABS: BASOPHILS # (AUTO) 0.1 10^3/uL (0.0-0.1); BASOPHILS % (AUTO) 1 % (0-10); EOSINOPHILS # (AUTO) 0.2 10^3/uL (0.0-0.3); EOSINOPHILS % (AUTO) 4 % (0-10); HEMATOCRIT 38 % (35-52); HEMOGLOBIN 12.5 G/DL (11.5-16.0); LYMPHOCYTES # (AUTO) 2.4 X 10^3 (1.0-4.0); LYMPHOCYTES % (AUTO) 40 % (12-44); MEAN CORPUSCULAR HEMOGLOBIN 31 PG (25-34); MEAN CORPUSCULAR HGB CONC 33 G/DL (32-36); MEAN CORPUSCULAR VOLUME 94 FL (80-99); MEAN PLATELET VOLUME 9.6 FL (7.4-10.4); MONOCYTES # (AUTO) 0.4 X 10^3 (0.0-1.0); MONOCYTES % (AUTO) 7 % (0-12); NEUTROPHILS # (AUTO) 2.9 X 10^3 (1.8-7.8); NEUTROPHILS % (AUTO) 49 % (42-75); PLATELET COUNT 278 10^3/uL (130-400); RED CELL DISTRIBUTION WIDTH 15.5 % (10.0-14.5)
[2020-06-21 03:45] LABS: BILIRUBIN,URINE NEGATIVE (NEGATIVE); CLARITY,URINE CLOUDY; COLOR,URINE AMBER; GLUCOSE, URINE (UA) NEGATIVE (NEGATIVE); KETONES,URINE NEGATIVE (NEGATIVE); LEUKOCYTE ESTERASE ,URINE NEGATIVE (NEGATIVE); NITRITE,URINE NEGATIVE (NEGATIVE); PROTEIN,URINE NEGATIVE (NEGATIVE)
[2020-06-21 03:48] LABS: POTASSIUM 4.3 MMOL/L (3.6-5.0)
[2020-06-21 03:49] LABS: CALCIUM 8.6 MG/DL (8.5-10.1)
[2020-06-21 03:50] LABS: TOTAL PROTEIN 6.9 GM/DL (6.4-8.2)
[2020-06-21 03:56] LABS: BACTERIA,URINE TRACE /HPF; RBC,URINE 0-2 /HPF; WBC,URINE 0-2 /HPF
[2020-06-21 03:56] LABS: MAGNESIUM 2.2 MG/DL (1.6-2.4)
[2020-06-21 03:57] LABS: CALCIUM OXALATE CRYSTALS,UR LARGE /LPF
[2020-06-21] MEDS ORDERED: NS IV 1000 ML 1,000 ML IV SCH (04:01)
[2020-06-21 04:17] LABS: TSH (THYROID ANALYZER) 1.55 UIU/ML (0.35-4.94)
--- NOTE | 2020-06-21 05:39 | ED General ---
General Chief Complaint: General Problems/Pain Stated Complaint: GENERALIZED HEALTH ISSUES Nursing Triage Note: TO ED ROOM 5 [facility] WITH C/O DIZZINESS FOR 6 MONTHS, LEFT ARM HEAVINESS FOR 6 MONTHS, TWITCHING FOR 6 MONTHS,"LEFT LEG USELESS FOR A LONG TIME", CHRONIC INSOMNIA. Nursing Sepsis Screen: No Definite Risk Source of Information: Patient Exam Limitations: No Limitations (MARCO KOEHLER MD) History of Present Illness Date Seen by Provider: Jun 21, 2020 Time Seen by Provider: 03:00 Initial Comments This 70-year-old woman presents to emergency room with multiple complaints most of which are chronic. She describes dizziness, muscle twitching and tremors, left shoulder pain, left leg and hip pain and weakness, dry mouth, and insomnia. These problems have all been present for months to years reports having multiple falls recently without injury. She tends to fall off the toilet because she falls asleep as patient takes multiple sedating medications, most notably benzodiazepines and baclofen. She was admitted November of last year for a baclofen and Xanax overdose. Patient states her primary reason for coming to the emergency room tonight is that she is tired of dealing with these problems and her insomnia is worse. (MARCO KOEHLER MD) Allergies and Home Medications Allergies Coded Allergies: hydrocodone (Verified Allergy, Unknown, HALLUCINATIONS, 02/06/18) morphine (Verified Allergy, Unknown, MIGRAINE, 02/06/18) tramadol (Verified Allergy, Unknown, HALLUCINATIONS, 02/06/18) Home Medications Gabapentin 600 Mg Tablet, 600 MG PO QID, (Reported) Lovastatin 20 Mg Tablet, 20 MG PO HS, (Reported) Pantoprazole Sodium 40 Mg Tablet.dr, 40 MG PO DAILY Prescribed by: CECY TREVIZO on 02/11/18 1001 Patient Home Medication List Home Medication List Reviewed: Yes (MARCO KOEHLER MD) Review of Systems Review of Systems Constitutional: see HPI EENTM: no symptoms reported Respiratory: no symptoms reported Cardiovascular: see HPI Gastrointestinal: no symptoms reported Genitourinary: no symptoms reported : No Musculoskeletal: see HPI Skin: no symptoms reported Psychiatric/Neurological: See HPI Hematologic/Lymphatic: No Symptoms Reported Immunological/Allergic: no symptoms reported (MARCO KOEHLER MD) Past Ernirmx-Rwomxv-Nwyhcw Hx Past Med/Social Hx: Reviewed Nursing Past Med/Soc Hx (MARCO KOEHLER MD) Patient Social History Alcohol Use: Denies Use Recreational Drug Use: No Smoking Status: Current Everyday Smoker Type Used: Cigarettes Former Smoker, Quit: Oct 02, 2017 Recent Foreign Travel: No Contact w/Someone Who Travel: No Recent Infectious Disease Expo: No Recent Hopitalizations: No Physical Abuse: No Sexual Abuse: No Mistreated: No Fear: No (MARCO KOEHLER MD) Immunizations Up To Date Tetanus Booster (TDap): Unknown Date of Pneumonia Vaccine: Aug 27, 2016 Date of Influenza Vaccine: Aug 20, 2019 (MARCO KOEHLER MD) Seasonal Allergies Seasonal Allergies: Yes (MARCO KOEHLER MD) Past Medical History Surgeries: Yes (bilateral mastectomy) Bladder Surgery, Tubal Ligation Respiratory: No Cardiac: No Neurological: Yes Headaches /Migraines [employer]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 Genitourinary: No Gastrointestinal: Yes Gastroesophageal Reflux, Chronic Constipation, Hepatitis Musculoskeletal: Yes Arthritis, Chronic Back Pain Endocrine: No HEENT: No Cancer: Yes Breast Did You Recieve Any Treatments: Yes What Type of Treatment Did You: Chemotherapy, Surgical Intervention Psychosocial: Yes (history of prescription drug overdose) Anxiety, Bipolar Integumentary: No Blood Disorders: No (MARCO KOEHLER MD) Family Medical History History from records review as patient unable to provide information due to unresponsive (MARCO KOEHLER MD) Physical Exam Vital Signs Vital Signs - First Documented 06/21/20 03:02 Temp 36.5 Pulse 96 Resp 16 B/P (MAP) 131/74 (93) Pulse Ox 95 O2 Delivery Room Air (JAYLA COSTA MD) Vital Signs Capillary Refill : Less Than 3 Seconds (MARCO KOEHLER MD) Height, Weight, BMI Height: 5'0.00" Weight: 153lbs. 0.0oz. [id number]; 30.00 BMI Method: General Appearance: No Apparent Distress, WD/WN HEENT: PERRL/EOMI, Normal ENT Inspection, Other (oropharynx quite dry) Neck: Normal Inspection Respiratory: Lungs Clear, Normal Breath Sounds, No Accessory Muscle Use, No Respiratory Distress Cardiovascular: Regular Rate, Rhythm, No Edema, No Murmur, Normal Peripheral Pulses Gastrointestinal: Normal Bowel Sounds, Non Tender, Soft Extremity: Normal Inspection, No Pedal Edema Neurologic/Psychiatric: Alert, Oriented x3, No Motor/Sensory Deficits, playground equipment erector II- XII Norm as Tested, Other (twitches and tremors) Skin: Normal Color, Warm/Dry (MARCO KOEHLER MD) Procedures/Interventions Date of ETT Placement: Nov 29, 2019 Time of ETT Placement: 31 (MARCO KOEHLER MD) Progress/Results/Core Measures Suspected Sepsis Recent Fever Within 48 Hours: No Infection Criteria Present: None New/Unexplained Altered Menta: No Sepsis Screen: No Definite Risk SIRS Temperature: Pulse: 96 Respiratory Rate: 16 Laboratory Tests 06/21/20 03:28: White Blood Count 6.0 Blood Pressure 131 /74 Mean: 93 Laboratory Tests 06/21/20 03:28: Creatinine 1.00, Platelet Count 278, Total Bilirubin < 0.1L (MARCO KOEHLER MD) Results/Orders Lab Results Laboratory Tests Test 06/21/20 03:28 06/21/20 03:36 06/21/20 05:15 06/21/20 05:32 Range/Units White Blood Count 6.0 4.3-11.0 10^3/uL Red Blood Count 4.08 L 4.35-5.85 10^6/uL Hemoglobin 12.5 11.5-16.0 G/DL Hematocrit 38 35-52 % Mean Corpuscular Volume 94 80-99 FL Mean Corpuscular Hemoglobin 31 25-34 PG Mean Corpuscular Hemoglobin Concent 33 32-36 G/DL Red Cell Distribution Width 15.5 H 10.0-14.5 % Platelet Count 278 130-400 10^3/uL Mean Platelet Volume 9.6 7.4-10.4 FL Neutrophils (%) (Auto) 49 42-75 % Lymphocytes (%) (Auto) 40 12-44 % Monocytes (%) (Auto) 7 0-12 % Eosinophils (%) (Auto) 4 0-10 % Basophils (%) (Auto) 1 0-10 % Neutrophils # (Auto) 2.9 1.8-7.8 X 10^3 Lymphocytes # (Auto) 2.4 1.0-4.0 X 10^3 Monocytes # (Auto) 0.4 0.0-1.0 X 10^3 Eosinophils # (Auto) 0.2 0.0-0.3 10^3/uL Basophils # (Auto) 0.1 0.0-0.1 10^3/uL Sodium Level 142 135-145 MMOL/L Potassium Level 4.3 3.6-5.0 MMOL/L Chloride Level 109 H 98-107 MMOL/L Carbon Dioxide Level 22 21-32 MMOL/L Anion Gap 11 5-14 MMOL/L Blood Urea Nitrogen 20 H 7-18 MG/DL Creatinine 1.00 0.60-1.30 MG/DL Estimat Glomerular Filtration Rate 55 BUN/Creatinine Ratio 20 Glucose Level 100 70-105 MG/DL Calcium Level 8.6 8.5-10.1 MG/DL Corrected Calcium 8.6 8.5-10.1 MG/DL Magnesium Level 2.2 1.6-2.4 MG/DL Total Bilirubin < 0.1 L 0.1-1.0 MG/DL Aspartate Amino Transf (AST/SGOT) 16 5-34 U/L Alanine Aminotransferase (ALT/SGPT) 17 0-55 U/L Alkaline Phosphatase 66 40-136 U/L Myoglobin 29.2 10.0-92.0 NG/ML Troponin I < 0.028 < 0.028 <0.028 NG/ML Total Protein 6.9 6.4-8.2 GM/DL Albumin 4.0 3.2-4.5 GM/DL TSH [place] Testing 1.55 0.35-4.94 UIU/ML Urine Color JESUS H Urine Clarity CLOUDY Urine pH 5.0 5-9 Urine Specific Terry >=1.030 1.016-1.022 Urine Protein NEGATIVE NEGATIVE Urine Glucose (UA) NEGATIVE NEGATIVE Urine Ketones NEGATIVE NEGATIVE Urine Nitrite NEGATIVE NEGATIVE Urine Bilirubin NEGATIVE NEGATIVE Urine Urobilinogen 0.2 < = 1.0 MG/DL Urine Leukocyte Esterase NEGATIVE NEGATIVE Urine RBC (Auto) TRACE-I NEGATIVE Urine RBC 0-2 /HPF Urine WBC 0-2 /HPF Urine Squamous Epithelial Cells 10-25 H /HPF Urine Crystals PRESENT H /LPF Urine Calcium Oxalate Crystals LARGE H /LPF Urine Bacteria TRACE /HPF Urine Casts NONE /LPF Urine Mucus NEGATIVE /LPF Urine Culture Indicated NO Prothrombin Time 14.9 H 12.2-14.7 SEC INR Comment 1.1 0.8-1.4 Activated Partial Thromboplast Time 28 24-35 SEC (JAYLA COSTA MD) Vital Signs/I&O 06/21/20 03:02 Temp 36.5 Pulse 96 Resp 16 B/P (MAP) 131/74 (93) Pulse Ox 95 O2 Delivery Room Air (JAYLA COSTA MD) Vital Signs/I&O Capillary Refill : Less Than 3 Seconds (MARCO KOEHLER MD) Blood Pressure Mean: 93 Progress Note : Time: 05:35 Progress Note Workup was performed and patient was hydrated with IV fluids. She then mentioned to me that she has been having some intermittent chest pressure, most recently in 01:30. She sometimes has to stop her chores due to this feeling of chest heaviness. EKG and troponin were added to her workup. EKG was normal and troponin was negative. A repeat troponin 4 hour from onset and 2 hours from prior was added. I have concerns that patient's symptoms may be largely due to side effects of her medications, most notably baclofen. (MARCO KOEHLER MD) Progress Note : Progress Note Assumed care of the patient from Dr. Koehler at 0600 pending troponin. Patient is resting peacefully with no complaints. 0628: Repeat troponin negative. Labs reviewed. No concerning findings. I did discuss this with the patient. She is without complaint currently states she will follow-up with her doctor which I think is appropriate. I also have concerns related to side effects of medications. She will discuss this with her doctor. Discharged home with return precautions. Patient verbalize understanding instructions and agreement with plan. (JAYLA COSTA MD) ECG Initial ECG Impression Date: Jun 21, 2020 Initial ECG Impression Time: 05:05 Initial ECG Rate: 79 Initial ECG Rhythm: Normal Sinus Initial ECG Intervals: Normal Initial ECG Impression: Normal Comment Normal sinus rhythm with no ST elevation or depression. No abnormal intervals or axis deviation. (MARCO KOEHLER MD) Diagnostic Imaging Diagonstic Imaging: Xray Plain Films/CT/US/NM/MRI: chest Comments Chest x-ray viewed by me. Report not yet available. No acute abnormalities appreciated. (MARCO KOEHLER MD) Departure Impression Primary Impression: Tremor Additional Impressions: Chest heaviness Insomnia Qualified Codes: G47.00 - Insomnia, unspecified Disposition: HOME, SELF-CARE Condition: Improved Departure-Patient Inst. Decision time for Depature: 06:29 (JAYLA COSTA MD) Referrals: MARY JO SALVADOR MD (PCP) Primary Care Physician [facility] (Family) Primary Care Physician Patient Instructions: Chest Pain, Insomnia (DC), Tremor Add. Discharge Instructions: All discharge instructions reviewed with patient and/or family. Voiced understanding. Call your doctor's office today for appointment this week. Return for worse pain, fever, vomiting, weakness, breathing problems, chest pain, sweating or other concerns as needed. Discuss your medications with your Dr. Copy Copies To 1: MARY JO SALVADOR MD, JOSHUA T MD Jun 21, 2020 05:39 JAYLA COSTA MD Jun 21, 2020 06:32
[2020-06-21 05:42] LABS: INR 1.1 (0.8-1.4); PROTHROMBIN TIME PATIENT 14.9 SEC (12.2-14.7)
[2020-06-21 06:51] VITALS: BP 133/98
--- NOTE | 2020-06-21 07:12 | Diagnostic Imaging Report ---
INDICATION: Chest pain. EXAMINATION: Chest 06/21/2020. Comparison made to 11/29/2019. FINDINGS: There is a left-sided central line with the tip in the proximal SVC. Postoperative changes noted in the cervical region. There is cardiomegaly. No infiltrates, effusions or pneumothorax. Pulmonary vasculature unremarkable. Clips in the right axilla. IMPRESSION: 1. Chronic findings. No acute abnormality. Dictated by: Dictated on workstation # [id number]
[2020-06-21 09:27] LABS: BILIRUBIN,TOTAL 0.1 MG/DL (0.1-1.0)
== END 2020-06-21 07:22 | disposition home or self-care (01) ==
LOC: EDUNIT# 03:01 → ER 03:02
DX: R25.1 Tremor, unspecified (principal); G47.00 Insomnia, unspecified; R07.9 Chest pain, unspecified; G43.909 Migraine, unspecified, not intractable, without status migrainosus; K21.9 Gastro-esophageal reflux disease without esophagitis; K59.00 Constipation, unspecified; M19.90 Unspecified osteoarthritis, unspecified site; M54.9 Dorsalgia, unspecified; Z85.3 Personal history of malignant neoplasm of breast; F41.9 Anxiety disorder, unspecified; F31.9 Bipolar disorder, unspecified; Z92.21 Personal history of antineoplastic chemotherapy; Z90.13 Acquired absence of bilateral breasts and nipples; Z98.51 Tubal ligation status; Z87.19 Personal history of other diseases of the digestive system; Z79.899 Other long term (current) drug therapy; Z88.5 Allergy status to narcotic agent; Z88.6 Allergy status to analgesic agent; Z91.81 History of falling
CPT/HCPCS: 36415; 71045; 80053; 81000; 83735; 83874; 84443; 84484; 85025; 85610; 85730; 93041

== ENCOUNTER 2020-08-10 18:02 | Emergency (ER) | payer MEDICARE, MEDICAID ==
[~2020-08-10] VITALS: Ht 152.4 cm; Wt 81.3 kg
[2020-08-10] MEDS ORDERED: LACTATED RINGERS 1,000 ML IV ONE (18:06)
--- NOTE | 2020-08-10 18:14 | ED GI ---
General Chief Complaint: General Problems/Pain Stated Complaint: CONSTIPATION Source of Information: Patient (LIMITED HISTORIAN), Old Records (ALL PMH IS FROM OLD RECORDS) History of Present Illness Date Seen by Provider: Aug 10, 2020 Time Seen by Provider: 18:06 Initial Comments PT ARRIVES VIA EMS FROM HOME--HAS BEEN STAYING WITH HER NIECE C/O CONSTIPATION STATES "NO BOWEL MOVEMENT FOR 2 DAYS" --HAD SMALL WATERY STOOL TODAY HAS NOT ATTEMPTED TO TAKE OR DO ANYTHING FOR CONSTIPATION PT HAD LEFT TOTAL HIP REPLACEMENT RECENTLY AT [address] WILLIAM--PT HAS NO IDEA HOW LONG AGO/WHAT DAY SHE HAD SURGERY, DOES NOT KNOW HOW LONG SHE WAS IN THE HOSPITAL, OR WHEN SHE WAS DISMISSED / HOW LONG SHE HAS BEEN HOME. PT STATES SHE HAS BEEN TAKING "ALOT" OF HYDROCODONE ( ALSO FOUND A XANAX PILL STUCK TO HER FOOT ON ARRIVAL--PT IS BAREFOOT)--CANNOT STATE HOW MANY SHE HAS TAKEN TODAY STATES SHE 'VOMITED ALL NIGHT LONG LAST NIGHT" --UNABLE TO STATE HOW MANY TIMES SHE HAS VOMITED, BUT STATES NO VOMITING TODAY STATES SHE HAS NOT HAD ANYTHING AT ALL TO EAT OR DRINK TODAY CANNOT STATE WHEN SHE LAST VOIDED C/O EPIGASTRIC ABDOMINAL PAIN PER OLD RECORDS, PT HAS HISTORY OF CHRONIC CONSTIPATION Allergies and Home Medications Allergies Coded Allergies: hydrocodone (Verified Allergy, Unknown, HALLUCINATIONS, 02/06/18) morphine (Verified Allergy, Unknown, MIGRAINE, 02/06/18) tramadol (Verified Allergy, Unknown, HALLUCINATIONS, 02/06/18) Home Medications Gabapentin 600 Mg Tablet, 600 MG PO QID, (Reported) Lovastatin 20 Mg Tablet, 20 MG PO HS, (Reported) Ondansetron 4 Mg Tab.rapdis, 4 MG PO Q4H Prescribed by: SHERRIE STARK on 08/10/201936 Pantoprazole Sodium 40 Mg Tablet.dr, 40 MG PO DAILY Prescribed by: CECY TREVIZO on 02/11/18 1001 Patient Home Medication List Home Medication List Reviewed: Yes Review of Systems Review of Systems Constitutional: no symptoms reported Respiratory: No Symptoms Reported Cardiovascular: No Symptoms Reported Gastrointestinal: See HPI, Abdominal Pain, Constipated, Nausea, Poor Appetite, Poor Fluid Intake, Vomiting Genitourinary: See HPI Musculoskeletal: see HPI Skin: no symptoms reported Psychiatric/Neurological: No Symptoms Reported Endocrine: No Symptoms Reported Past Ymamobw-Apcusm-Nssdkg Hx Past Med/Social Hx: Reviewed and Corrections made Patient Social History Alcohol Use: Denies Use Recreational Drug Use: Yes (RX DRUG OVERDOSE-BENZO'S 09/2019 AND BZO + BACLOFEN OD 11/2019) Drug of Choice: RX DRUG OVERDOSE-BENZOS' 09/2019;OD'D ON BZO + BALCOFEN 11/2019 Smoking Status: Former Smoker Type Used: Cigarettes Former Smoker, Quit: Oct 02, 2017 Recent Hopitalizations: No Immunizations Up To Date Tetanus Booster (TDap): Unknown Date of Pneumonia Vaccine: Aug 27, 2016 Date of Influenza Vaccine: Aug 20, 2019 Seasonal Allergies Seasonal Allergies: Yes Past Medical History Surgeries: Yes (BILATERAL MASTECTOMY; LEFT HIP REPLACEMENT 08/2020;EGD/COLONOSCOPY 01/2018) Bladder Surgery, Breast, Joint Replacement, Orthopedic, Tubal Ligation Respiratory: Yes (INTUBATED 09/2019 DUE TO BENZO OVERDOSE) Cardiac: Yes High Cholesterol Neurological: Yes Headaches /Migraines 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 Genitourinary: No Gastrointestinal: Yes Gastroesophageal Reflux, Chronic Constipation, Hepatitis Musculoskeletal: Yes (LEFT HIP REPLACEMENT 08/2020;C-SPINE SURGERY) Arthritis, Chronic Back Pain Endocrine: No HEENT: No Cancer: Yes Breast Did You Recieve Any Treatments: Yes What Type of Treatment Did You: Chemotherapy, Surgical Intervention Psychosocial: Yes (history of prescription drug overdose) Anxiety, Bipolar Integumentary: No Blood Disorders: No Family Medical History OVERDOSED ON BENZODIAZEPINES ( XANAX) 09/2019 AND WAS INTUBATED OVERDOSED ON BENZODIAZEPINES ( XANAX ) PLUS BACLOFEN 11/2019 AND WAS INTUBATED RX DRUG ABUSE HISTORY PSH: -BLADDER SURGERY -BILATERAL TUBAL LIGATION -BILATERAL MASTECTOMY FOR CANCER -C-SPINE SURGERY -LEFT HIP REPLACEMENT 08/2020[facility] Physical Exam Vital Signs Vital Signs - First Documented 08/10/20 18:02 Temp 36.5 Pulse 70 Resp 18 B/P (MAP) 185/110 (135) Capillary Refill : Height/Weight/BMI Height: 5'0.00" Weight: 153lbs. 0.0oz. 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, no motor/sensory deficits, alert, normal mood/affect, oriented x 3 (BUT POOR MEMORY) Skin: normal color, warm/dry Procedures/Interventions Date of ETT Placement: Nov 29, 2019 Time of ETT Placement: 31 Progress/Results/Core Measures Results/Orders Lab Results Laboratory Tests Test 08/10/20 18:00 08/10/20 18:45 Range/Units White Blood Count 7.3 4.3-11.0 10^3/uL Red Blood Count 4.54 4.35-5.85 10^6/uL Hemoglobin 13.2 11.5-16.0 G/DL Hematocrit 40 35-52 % Mean Corpuscular Volume 88 80-99 FL Mean Corpuscular Hemoglobin 29 25-34 PG Mean Corpuscular Hemoglobin Concent 33 32-36 G/DL Red Cell Distribution Width 15.0 H 10.0-14.5 % Platelet Count 450 H 130-400 10^3/uL Mean Platelet Volume 9.1 7.4-10.4 FL Neutrophils (%) (Auto) 75 42-75 % Lymphocytes (%) (Auto) 16 12-44 % Monocytes (%) (Auto) 7 0-12 % Eosinophils (%) (Auto) 1 0-10 % Basophils (%) (Auto) 0 0-10 % Neutrophils # (Auto) 5.4 1.8-7.8 X 10^3 Lymphocytes # (Auto) 1.2 1.0-4.0 X 10^3 Monocytes # (Auto) 0.5 0.0-1.0 X 10^3 Eosinophils # (Auto) 0.1 0.0-0.3 10^3/uL Basophils # (Auto) 0.0 0.0-0.1 10^3/uL Sodium Level 141 135-145 MMOL/L Potassium Level 4.2 3.6-5.0 MMOL/L Chloride Level 107 98-107 MMOL/L Carbon Dioxide Level 20 L 21-32 MMOL/L Anion Gap 14 5-14 MMOL/L Blood Urea Nitrogen 14 7-18 MG/DL Creatinine 0.70 0.60-1.30 MG/DL Estimat Glomerular Filtration Rate > 60 BUN/Creatinine Ratio 20 Glucose Level 97 70-105 MG/DL Calcium Level 9.3 8.5-10.1 MG/DL Corrected Calcium 9.3 8.5-10.1 MG/DL Magnesium Level 1.9 1.6-2.4 MG/DL Total Bilirubin 0.3 0.1-1.0 MG/DL Aspartate Amino Transf (AST/SGOT) 20 5-34 U/L Alanine Aminotransferase (ALT/SGPT) 9 0-55 U/L Alkaline Phosphatase 78 40-136 U/L Total Protein 7.5 6.4-8.2 GM/DL Albumin 4.0 3.2-4.5 GM/DL Amylase Level 14 L 25-125 U/L Lipase < 4 L 8-78 U/L Urine Color YELLOW Urine Clarity CLEAR Urine pH 7.0 5-9 Urine Specific [place] 1.020 1.016-1.022 Urine Protein NEGATIVE NEGATIVE Urine Glucose (UA) NEGATIVE NEGATIVE Urine Ketones 2+ H NEGATIVE Urine Nitrite NEGATIVE NEGATIVE Urine Bilirubin 1+ H NEGATIVE Urine Urobilinogen 1.0 < = 1.0 MG/DL Urine Leukocyte Esterase NEGATIVE NEGATIVE Urine RBC (Auto) 1+ H NEGATIVE Urine RBC 5-10 H /HPF Urine WBC 0-2 /HPF Urine Crystals NONE /LPF Urine Bacteria TRACE /HPF Urine Casts NONE /LPF Urine Mucus SMALL H /LPF Urine Culture Indicated NO My Orders Orders - SHERRIE STARK DO Ed Iv/Invasive Line Start (08/10/20 18:06) Monitor-Rhythm Ecg Trace Only (08/10/20 18:06) Acute Abd Series (08/10/20 18:06) Amylase (08/10/20 18:06) Cbc With Automated Diff (08/10/20 18:06) Comprehensive Metabolic Panel (08/10/20 18:06) Lipase (08/10/20 18:06) Magnesium (08/10/20 18:06) Ua Culture If Indicated (08/10/20 18:06) Ed Iv/Invasive Line Start (08/10/20 18:06) Lactated Ringers (Lr 1000 Ml Iv Solution (9/9/20 18:06) Ondansetron Injection (Zofran Injectio (08/10/20 18:15) Ct Abdomen/Pelvis Wo (08/10/20 18:06) Straight Cath For Spec.-Adult (08/10/20 18:32) Magnesium Citrate Oral Soln (Citrate Of (08/10/20 19:45) Medications Given in ED Current Medications Medications Dose Ordered Sig/Kelley Route Start Time Stop Time Status Last Admin Dose Admin Lactated Ringer's 1,000 ml @ 0 mls/hr Q0M ONCE IV 08/10/20 18:06 08/10/20 18:11 DC 08/10/20 18:20 1,000 MLS/HR Ondansetron HCl 4 mg ONCE ONCE IVP 08/10/20 18:15 08/10/20 18:16 DC 08/10/20 18:20 4 MG Vital Signs/I&O 08/10/20 18:02 Temp 36.5 Pulse 70 Resp 18 B/P (MAP) 185/110 (135) Progress Progress Note : Progress Note NO COMPLAINTS OF ANY KIND DURING ER STAY Diagnostic Imaging Comments ABDOMEN XRAYS--PER RADIOLOGIST REPORT AT 1934 IMPRESSION: 1: There is no radiographic evidence of acute cardiopulmonary process. 2: Unremarkable x-ray of the abdomen. There is no significant stool load. CT ABDOMEN/PELVIS--PER RADIOLOGIST REPORT AT 1934 IMPRESSION: 1. No acute CT findings in the abdomen or pelvis on this noncontrast exam. No evidence of bowel obstruction. No large stool burden. 2. Mild colonic diverticulosis without evidence of active diverticulitis. Reviewed: Reviewed by Me Departure Impression Primary Impression: CONSTIPATION Additional Impressions: CHRONIC CONSTIPATION NARCOTIC USE Disposition: 01 HOME, SELF-CARE Condition: Stable Departure-Patient Inst. Referrals: MARY JO SALVADOR MD (PCP) Primary Care Physician [facility] (Family) Primary Care Physician Patient Instructions: Constipation, Adult (DC), Dealing with Constipation from the Drugs You Take Add. Discharge Instructions: CLEAR LIQUIDS--WATER, BROTH, JELLO, GATORADE NO FOOD UNTIL YOU HAVE HAD A BOWEL MOVEMENT USE DULCOLAX SUPPOSITORIES AND FLEET'S ENEMAS UNTIL CLEAR TAKE MIRALAX EVERY 2-3 HOURS UNTIL YOUR STOOLS ARE CLEAR, THEN USE DAILY FOLLOW UP WITH YOUR DR IN 2-3 DAYS IF NO BETTER All discharge instructions reviewed with patient and/or family. Voiced understanding. Scripts Ondansetron (Ondansetron Odt) 4 Mg Tab.rapdis 4 MG PO Q4H for Nausea/Vomiting, #10 TAB Prov: SHERRIE STARK DO 08/10/20 SHERRIE STARK DO Aug 10, 2020 18:14
[2020-08-10] MEDS ORDERED: ONDANSETRON 4 MG/2 ML (SDV) Z0FRAN IVP ONE (18:15)
[2020-08-10 18:17] LABS: BASOPHILS % (AUTO) 0 % (0-10); EOSINOPHILS # (AUTO) 0.1 10^3/uL (0.0-0.3); EOSINOPHILS % (AUTO) 1 % (0-10); HEMATOCRIT 40 % (35-52); HEMOGLOBIN 13.2 G/DL (11.5-16.0); LYMPHOCYTES # (AUTO) 1.2 X 10^3 (1.0-4.0); LYMPHOCYTES % (AUTO) 16 % (12-44); MEAN CORPUSCULAR HEMOGLOBIN 29 PG (25-34); MEAN CORPUSCULAR HGB CONC 33 G/DL (32-36); MEAN CORPUSCULAR VOLUME 88 FL (80-99); MEAN PLATELET VOLUME 9.1 FL (7.4-10.4); MONOCYTES # (AUTO) 0.5 X 10^3 (0.0-1.0); MONOCYTES % (AUTO) 7 % (0-12); NEUTROPHILS # (AUTO) 5.4 X 10^3 (1.8-7.8); NEUTROPHILS % (AUTO) 75 % (42-75); PLATELET COUNT 450 10^3/uL (130-400); WHITE BLOOD COUNT 7.3 10^3/uL (4.3-11.0)
[2020-08-10 18:36] LABS: ALANINE AMINOTRANSFERASE 9 U/L (0-55); ALKALINE PHOSPHATASE 78 U/L (40-136); AMYLASE 14 U/L (25-125); BILIRUBIN,TOTAL 0.3 MG/DL (0.1-1.0); BUN/CREATININE RATIO 20; CALCIUM 9.3 MG/DL (8.5-10.1); CARBON DIOXIDE 20 MMOL/L (21-32); CHLORIDE 107 MMOL/L (98-107); GFR ESTIMATED > 60; GLUCOSE 97 MG/DL (70-105); LIPASE < 4 U/L (8-78); MAGNESIUM 1.9 MG/DL (1.6-2.4); POTASSIUM 4.2 MMOL/L (3.6-5.0); SODIUM 141 MMOL/L (135-145); TOTAL PROTEIN 7.5 GM/DL (6.4-8.2)
[2020-08-10 19:03] LABS: CLARITY,URINE CLEAR; COLOR,URINE YELLOW; GLUCOSE, URINE (UA) NEGATIVE (NEGATIVE); KETONES,URINE 2+ (NEGATIVE); LEUKOCYTE ESTERASE ,URINE NEGATIVE (NEGATIVE); NITRITE,URINE NEGATIVE (NEGATIVE); PROTEIN,URINE NEGATIVE (NEGATIVE)
--- NOTE | 2020-08-10 19:19 | Diagnostic Imaging Report ---
CLINICAL INDICATION: Four days postop left hip replacement. Patient has abdominal pain, vomiting and constipation. EXAM: EXAMS: X-ray of the chest PA view and x-ray of the abdomen supine and upright views. COMPARISONS: None. FINDINGS: There is a central line overlying the left chest with tip in the proximal superior vena cava. LUNGS/ PLEURA: Lungs are clear. There is no pneumothorax. There is no pleural effusion. MEDIASTINUM: Unremarkable. PULMONARY VASCULATURE: Unremarkable. HEART: Unremarkable. BONES/ EXTRATHORACIC SOFT TISSUE: There are degenerative spurs involving the thoracic and lumbar spine. There is right curvature of the thoracolumbar spine. There are cervical disc fusion hardware is noted involving the lower cervical spine. There are surgical clips overlying the right axillary region. Left hip arthroplasty is partially visualized. There are hypertrophic spurs involving the right hip. ABDOMEN AND PELVIS: Unremarkable x-ray of the abdomen with nonobstructed bowel gas pattern. There is no evidence of abdominal free air. Suspected phleboliths seen in the pelvis. There are no focal calcifications overlying the expected regions/ pathways of both kidneys, ureters, and bladder regions. IMPRESSION: 1: There is no radiographic evidence of acute cardiopulmonary process. 2: Unremarkable x-ray of the abdomen. There is no significant stool load. Dictated by: Dictated on workstation # [id number]
--- NOTE | 2020-08-10 19:21 | Diagnostic Imaging Report ---
PROCEDURE: CT abdomen and pelvis without contrast. TECHNIQUE: Multiple contiguous axial images were obtained through the abdomen and pelvis without the use of intravenous contrast. Auto Exposure Controls were utilized during the CT exam to meet ALARA standards for radiation dose reduction. INDICATION: Constipation. Vomiting. Four days status post left hip replacement. COMPARISON: None. FINDINGS: Lung bases are clear. The liver, gallbladder, pancreas, spleen, adrenals, kidneys, collecting systems and bladder are negative on this noncontrast exam. The reproductive structures are grossly unremarkable. Negative appendix. No free intraperitoneal air or fluid. No lymphadenopathy. No evidence of bowel obstruction. Mild colonic diverticulosis without evidence of active diverticulitis. No large stool burden. Left MARILEE. This appears normally aligned with no periprosthetic fracture identified. Moderate to advanced spondylotic changes in the lumbar spine. Chronic anterior wedging of T12. IMPRESSION: 1. No acute CT findings in the abdomen or pelvis on this noncontrast exam. No evidence of bowel obstruction. No large stool burden. 2. Mild colonic diverticulosis without evidence of active diverticulitis. Dictated by: Dictated on workstation # [id number]
[2020-08-10 19:32] LABS: BACTERIA,URINE TRACE /HPF; WBC,URINE 0-2 /HPF
[2020-08-10 19:36] LABS: BILIRUBIN,URINE 1+ (NEGATIVE)
[2020-08-10] MEDS ORDERED: ONDA4TAB11 PO (19:37)
[2020-08-10] MEDS ORDERED: MAGNESIUM CITRATE 300 ML BTL PO ONE (19:45)
[2020-08-10 19:51] VITALS: BP 169/80
== END 2020-08-10 19:55 | disposition home or self-care (01) ==
LOC: ER 18:02 → EDUNIT# 18:02 → ER 19:55
DX: K59.09 Other constipation (principal); K21.9 Gastro-esophageal reflux disease without esophagitis; E78.00 Pure hypercholesterolemia, unspecified; F11.90 Opioid use, unspecified, uncomplicated; Z88.5 Allergy status to narcotic agent; Z88.6 Allergy status to analgesic agent; Z87.891 Personal history of nicotine dependence; Z85.3 Personal history of malignant neoplasm of breast
CPT/HCPCS: 36415; 51701; 74022; 74176; 80053; 81000; 82150; 83690; 83735; 85025; 93041

== ENCOUNTER 2021-01-31 10:18 | Outpatient (RCR) | payer MEDICARE, MEDICAID ==
[~2021-01-31 10:18] MED LIST changes: -ALEN70TA5; +ALEN70TA80; +ONDA4TAB11 PO; +SERT-414 PO; -SERT100T8 PO
== END 2021-02-10 15:47 | disposition home or self-care (01) ==
PROVIDERS: ATTEND Nurse Practitioner Community Health
DX: M54.2 Cervicalgia (principal)

== ENCOUNTER 2021-02-22 09:30 | Outpatient (CLI) | payer MEDICARE, MEDICAID ==
[~2021-02-22] VITALS: Ht 157.5 cm; Wt 79.5 kg
[2021-02-22] MEDS ORDERED: QUET25TA34 PO (10:26)
[2021-02-22] MEDS ORDERED: BACL10TA PO (10:26)
[2021-02-22] MEDS ORDERED: CLC600T PO (10:26)
[2021-02-22] MEDS ORDERED: FAMO-119 PO (10:26)
[2021-02-22] MEDS ORDERED: NICO-533 TD (10:26)
[2021-02-22] MEDS ORDERED: CHOL200025 PO (10:26)
[2021-02-22] MEDS ORDERED: GABA300C PO (10:26)
[2021-02-22] MEDS ORDERED: POLY119P5 PO (10:26)
[2021-02-22] MEDS ORDERED: OMEP40CA27 PO (10:26)
[2021-02-22] MEDS ORDERED: AMIT50TA3 PO (10:26)
[2021-02-22] MEDS ORDERED: ACET325T38 PO (10:26)
[2021-02-22] MEDS ORDERED: LAMO25TA75 PO (10:26)
== END 2021-02-22 10:30 | disposition home or self-care (01) ==
LOC: PREOP 09:30
PROVIDERS: ATTEND Specialist
DX: Z01.818 Encounter for other preprocedural examination (principal)

== ENCOUNTER 2021-02-24 08:41 | Day surgery (SDC) | payer MEDICARE, MEDICAID ==
[~2021-02-24] VITALS: Ht 157.5 cm; Wt 79.5 kg
[~2021-02-24 08:41] MED LIST changes: +ACET325T38 PO; +AMIT50TA3 PO; +CHOL200025 PO; +CLC600T PO; +FAMO-119 PO; +GABA300C PO; +LAMO25TA75 PO; +NICO-533 TD; +OMEP40CA27 PO; +POLY119P5 PO; +QUET25TA34 PO
[2021-02-24] MEDS ORDERED: POVIDONE (BETADINE) OPHTH SOLN 5% 30 ML OP ONE (09:00)
[2021-02-24] MEDS ORDERED: LIDOCAINE PF 1% 2 ML VIAL IR PRN (09:00)
[2021-02-24] MEDS ORDERED: TIMOLOL MALEATE 0.5% 5 ML (TIMOPTIC) BTL OU PRN (09:00)
[2021-02-24] MEDS ORDERED: MOXIFLOXACIN OPHTH SOLN 5 MG/ML 0.3 ML SYRINGE OP ONE (09:00)
[2021-02-24] MEDS: TETRACAINE 0.5% OPHTH SOLN 4 ML BTL (SINGLE DOSE ONLY) OU PRN ×4 (09:02→09:22)
[2021-02-24] MEDS: PHENYLEPHRINE 10% OPHTH (NEO-SYN) 5 ML BTL OU SCH ×3 (09:09→09:22)
[2021-02-24] MEDS: TROPICAMIDE 1% OPH SOLN (MYDRIACYL) 15 ML BTL OP SCH ×3 (09:09→09:23)
[2021-02-24 09:17] VITALS: BP 125/80
[2021-02-24] MEDS ORDERED: MIDAZOLAM 2 MG/2 ML (VERSED) VIAL ONE (09:48)
--- NOTE | 2021-02-24 09:48 | Ophthalmologist Pre-Op Note ---
Pre-Operative Progress Note H&P Reviewed The H&P was reviewed, patient examined and no changes noted. Date H&P Reviewed: Feb 24, 2021 Time H&P Reviewed: 09:48 Pre-Op Dx Cataract, Left Eye ASUNCION HILL MD Feb 24, 2021 09:48
--- NOTE | 2021-02-24 10:10 | Ophthalmology Operative Report ---
Cataract removal/placement IOL PREOPERATIVE DIAGNOSIS: Cataract Left Eye POSTOPERATIVE DIAGNOSIS: Cataract Left Eye PROCEDURE: Cataract removal and placement of posterior chamber implant, left eye SURGEON: Ari Hill ANESTHESIA: Topical with sedation COMPLICATIONS: None ESTIMATED BLOOD LOSS: Minimal DESCRIPTION OF PROCEDURE: After proper informed consent was obtained, the patient, a 70 female, was taken to the Operating Room and the left eye was anesthetized with tetracaine. The left eye was then prepped and draped in the usual manner. A wire lid speculum was placed. A paracentesis was made at the left hand position. Preservative free lidocaine was injected into the anterior chamber followed by viscoelastic. A clear corneal incision was made in the temporal position. A capsulorrhexis was preformed and the central nuclear and cortical material were removed. The posterior capsule was polished and an Chet 22.5 AU00T0 was placed into the capsular bag. The residual viscoelastic was aspirated and balanced saline solution was injected into the anterior chamber. Moxifloxacin was injected into the anterior chamber. The wound was checked and found to be water tight. The patient tolerated the procedure well without complications. ARI HILL MD Feb 24, 2021 10:10
[2021-02-24 10:17] VITALS: BP 127/75
[2021-02-24] MEDS ORDERED: acetaZOLAMIDE ER 500 MG CAP (DIAMOX SEQUELS) PO ONE (10:30)
--- NOTE | 2021-02-24 12:20 | Anesthesia-General Post-Op ---
MAC Patient Condition Mental Status/LOC: Same as Preop Cardiovascular: Satisfactory Nausea/Vomiting: Absent Respiratory: Satisfactory Pain: Controlled Complications: Absent Post Op Complications Complications None Follow Up Care/Instructions Patient Instructions None needed. Anesthesiology Discharge Order Discharge Order Patient is doing well, no complaints, stable vital signs, no apparent adverse anesthesia problems. No complications reported per nursing. YANETH HODGE CRNA Feb 24, 2021 12:20
== END 2021-02-24 10:17 | disposition home or self-care (01) ==
LOC: SDC 08:41
PROVIDERS: ATTEND Specialist
DX: H25.12 Age-related nuclear cataract, left eye (principal); F41.9 Anxiety disorder, unspecified; F32.9 Major depressive disorder, single episode, unspecified; M19.90 Unspecified osteoarthritis, unspecified site; G47.00 Insomnia, unspecified; Z79.899 Other long term (current) drug therapy; Z88.5 Allergy status to narcotic agent; Z87.891 Personal history of nicotine dependence; Z80.3 Family history of malignant neoplasm of breast
CPT/HCPCS: 66984; V2632

== ENCOUNTER 2021-03-03 08:26 | Day surgery (SDC) | payer MEDICARE, MEDICAID ==
[~2021-03-03] VITALS: Ht 157 cm; Wt 79.5 kg
[2021-03-03] MEDS ORDERED: LIDOCAINE PF 1% 2 ML VIAL IR PRN (08:30)
[2021-03-03] MEDS ORDERED: TIMOLOL MALEATE 0.5% 5 ML (TIMOPTIC) BTL OU PRN (08:30)
[2021-03-03] MEDS ORDERED: MOXIFLOXACIN OPHTH SOLN 5 MG/ML 0.3 ML SYRINGE OP ONE (08:30)
[2021-03-03] MEDS ORDERED: POVIDONE (BETADINE) OPHTH SOLN 5% 30 ML OP ONE (08:30)
[2021-03-03] MEDS: TETRACAINE 0.5% OPHTH SOLN 4 ML BTL (SINGLE DOSE ONLY) OU PRN ×4 (08:38→09:00)
[2021-03-03] MEDS: PHENYLEPHRINE 10% OPHTH (NEO-SYN) 5 ML BTL OU SCH ×3 (08:46→09:00)
[2021-03-03] MEDS: TROPICAMIDE 1% OPH SOLN (MYDRIACYL) 15 ML BTL OP SCH ×3 (08:46→09:00)
[2021-03-03 08:57] VITALS: BP 124/65
[2021-03-03] MEDS ORDERED: MIDAZOLAM 2 MG/2 ML (VERSED) VIAL ONE (09:06)
--- NOTE | 2021-03-03 09:23 | Ophthalmologist Pre-Op Note ---
Pre-Operative Progress Note H&P Reviewed The H&P was reviewed, patient examined and no changes noted. Date H&P Reviewed: Mar 03, 2021 Time H&P Reviewed: 09:23 Pre-Op Dx Cataract, Right Eye ASUNCION HILL MD Mar 03, 2021 09:23
--- NOTE | 2021-03-03 09:27 | Anesthesia-General Post-Op ---
MAC Patient Condition Mental Status/LOC: Same as Preop Cardiovascular: Satisfactory Nausea/Vomiting: Absent Respiratory: Satisfactory Pain: Controlled Complications: Absent Post Op Complications Complications None Follow Up Care/Instructions Patient Instructions None needed. Anesthesiology Discharge Order Discharge Order Patient is doing well, no complaints, stable vital signs, no apparent adverse anesthesia problems. No complications reported per nursing. KLEVER MARIN CRNA Mar 03, 2021 09:27
--- NOTE | 2021-03-03 09:50 | Ophthalmology Operative Report ---
Cataract removal/placement IOL PREOPERATIVE DIAGNOSIS: Cataract Right Eye POSTOPERATIVE DIAGNOSIS: Cataract Right Eye PROCEDURE: Cataract removal and placement of posterior chamber implant, right eye SURGEON: Ari Hill ANESTHESIA: Topical with sedation COMPLICATIONS: None ESTIMATED BLOOD LOSS: Minimal DESCRIPTION OF PROCEDURE: After proper informed consent was obtained, the patient, a 70 female, was taken to the Operating Room and the right eye was anesthetized with tetracaine. The right eye was then prepped and draped in the usual manner. A wire lid speculum was placed. A paracentesis was made at the left hand position. Preservative free lidocaine was injected into the anterior chamber followed by viscoelastic. A clear corneal incision was made in the temporal position. A capsulorrhexis was preformed and the central nuclear and cortical material were removed. The posterior capsule was polished and Chet 22.5 AU00T0 IOL was placed into the capsular bag. The residual viscoelastic was aspirated and balanced saline solution was injected into the anterior chamber. Moxifloxacin was injected into the anterior chamber. The wound was checked and found to be water tight. The patient tolerated the procedure well without complications. ARI HILL MD Mar 03, 2021 09:50
[2021-03-03 09:55] VITALS: BP 153/87
[2021-03-03] MEDS ORDERED: acetaZOLAMIDE ER 500 MG CAP (DIAMOX SEQUELS) PO ONE (10:00)
== END 2021-03-03 10:03 ==
LOC: SDC 08:26
PROVIDERS: ATTEND Specialist
DX: H25.11 Age-related nuclear cataract, right eye (principal); F41.9 Anxiety disorder, unspecified; F32.9 Major depressive disorder, single episode, unspecified; G47.00 Insomnia, unspecified; K21.9 Gastro-esophageal reflux disease without esophagitis; M19.90 Unspecified osteoarthritis, unspecified site; Z79.899 Other long term (current) drug therapy; Z88.5 Allergy status to narcotic agent; Z87.891 Personal history of nicotine dependence; Z80.3 Family history of malignant neoplasm of breast
CPT/HCPCS: 66984; V2632

== ENCOUNTER 2021-11-14 14:06 | Outpatient (RCR) | payer MEDICARE, MEDICAID ==
[~2021-11-14 14:06] MED LIST changes: +CALC600T91 PO; -CLC600T PO; +MIRT-68; -MIRT15TA6; -OMEP40CA27 PO; +OMEP40CA6 PO; -QUET25TA34 PO; +QUET25TA35 PO
[2021-11-14 15:48] LABS: BASOPHILS # (AUTO) 0.1 10^3/uL (0.0-0.1); BASOPHILS % (AUTO) 1 % (0-10); EOSINOPHILS # (AUTO) 0.1 10^3/uL (0.0-0.3); EOSINOPHILS % (AUTO) 2 % (0-10); HEMATOCRIT 46 % (35-52); HEMOGLOBIN 14.7 g/dL (11.5-16.0); LYMPHOCYTES # (AUTO) 2.3 X 10^3 (1.0-4.0); LYMPHOCYTES % (AUTO) 33 % (12-44); MEAN CORPUSCULAR HEMOGLOBIN 30 pg (25-34); MEAN CORPUSCULAR HGB CONC 32 g/dL (32-36); MEAN CORPUSCULAR VOLUME 92 fL (80-99); MEAN PLATELET VOLUME 9.8 fL (9.0-12.2); MONOCYTES # (AUTO) 0.4 X 10^3 (0.0-1.0); MONOCYTES % (AUTO) 6 % (0-12); NEUTROPHILS % (AUTO) 58 % (42-75); PLATELET COUNT 323 10^3/uL (130-400); WHITE BLOOD COUNT 6.9 10^3/uL (4.3-11.0)
[2021-11-14 16:12] LABS: ALBUMIN 4.5 GM/DL (3.2-4.5); BILIRUBIN,TOTAL 0.3 MG/DL (0.1-1.0); CALCIUM 10.1 MG/DL (8.5-10.1); CREATININE SERUM 1.02 MG/DL (0.60-1.30); POTASSIUM 4.4 MMOL/L (3.6-5.0); TOTAL PROTEIN 8.1 GM/DL (6.4-8.2)
== END 2021-12-01 | disposition home or self-care (01) ==
LOC: ONC 14:06
PROVIDERS: ATTEND Internal Medicine Hematology & Oncology
DX: C50.912 Malignant neoplasm of unspecified site of left female breast (principal); K21.9 Gastro-esophageal reflux disease without esophagitis; Z85.3 Personal history of malignant neoplasm of breast; Z90.13 Acquired absence of bilateral breasts and nipples; Z92.21 Personal history of antineoplastic chemotherapy
CPT/HCPCS: 80053; 85025; G0463; 99214

== ENCOUNTER 2022-02-27 09:38 | Outpatient (RCR) | payer MEDICARE, MEDICAID | END 2022-03-01 | disposition home or self-care (01) | PROVIDERS: ATTEND Nurse Practitioner Community Health | DX: M25.551 Pain in right hip (principal); M25.561 Pain in right knee; Z98.1 Arthrodesis status ==

== ENCOUNTER 2022-03-16 10:08 | Outpatient (RCR) | payer MEDICARE, MEDICAID | END 2022-03-16 11:11 | disposition home or self-care (01) | PROVIDERS: ATTEND Nurse Practitioner Community Health | DX: M25.561 Pain in right knee (principal); M25.551 Pain in right hip ==

== ENCOUNTER 2023-01-23 05:50 | Outpatient (CLI) | payer MEDICARE, MEDICAID ==
[~2023-01-23] VITALS: Ht 149.9 cm; Wt 70.8 kg
[2023-01-25] MEDS ORDERED: PANT40TA52 PO (15:25)
[2023-01-25] MEDS ORDERED: ASPI-808 PO (15:25)
[2023-01-25] MEDS ORDERED: SUCR1TAB PO (15:25)
[2023-01-25] MEDS ORDERED: SERT-413 PO (15:25)
== END 2023-01-25 15:26 | disposition home or self-care (01) ==
LOC: PREOP 05:50
PROVIDERS: ATTEND Surgery
DX: Z01.818 Encounter for other preprocedural examination (principal)

== ENCOUNTER 2023-02-05 11:19 | Day surgery (SDC) | payer MEDICARE, MEDICAID ==
[~2023-02-05] VITALS: Ht 149.9 cm; Wt 70.8 kg
[~2023-02-05 11:19] MED LIST changes: +ASPI-808 PO; +PANT40TA52 PO; +SERT-413 PO; +SUCR1TAB PO
[2023-02-05] MEDS ORDERED: LACTATED RINGERS 1,000 ML IV STA (11:23)
[2023-02-05 11:30] VITALS: BP 142/93
[2023-02-05] MEDS ORDERED: HURRICAINE EXT TUBE (BENZOCAINE) XX PRN (11:30)
--- NOTE | 2023-02-05 11:47 | Progress Note-Pre Operative ---
Pre-Operative Progress Note Date H&P Reviewed: Feb 05, 2023 Time H&P Reviewed: 11:46 History & Physical: H&P Reviewed, Patient Examed, No changes noted Pre-Operative Diagnosis: H/o polyps and GERD CECY TREVIZO DO Feb 05, 2023 11:47
[2023-02-05] MEDS ORDERED: PROPOFOL INJECTION 50 ML IV ONE (13:22)
[2023-02-05 13:26] VITALS: BP 93/55
--- NOTE | 2023-02-05 13:26 | Progress Note-Post Operative ---
Post-Operative Progess Note Surgeon (s)/Process Operator (s) Surgeon CECY TREVIZO DO Process Operator: na Pre-Operative Diagnosis H/o polyps and GERD Post-Operative Diagnosis Antral Ulcer Ascending colon polyp Internal hemorrhoids Procedure & Operative Findings Date of Procedure 02/05/23 Procedure Performed/Findings EGD with biopsies x2 Colonoscopy with hot biopsy polypectomy x1 Anesthesia Type per cut order hand Estimated Blood Loss Estimated blood loss (mL): none Specimens/Packing Specimens Removed Antrum Ulcer biopsy x 1 GE biopsy x1 Ascending colon polyp hot biopsy x 1 CECY TREVIZO DO Feb 05, 2023 13:26
--- NOTE | 2023-02-05 13:26 | Discharge Inst-Simple/Standard ---
Discharge Inst-Standard Discharge Medications New, Converted or Re-Newed RX: Transmitted to Pharmacy Patient Instructions/Follow Up Plan of Care/Instructions/FU: 2 weeks Dorian Activity as Tolerated: Yes Discharge Diet: Regular Diet CECY TREVIZO DO Feb 05, 2023 13:26
[2023-02-05 13:31] VITALS: BP 103/55
[2023-02-05 13:35] VITALS: BP 103/55
[2023-02-05 14:35] VITALS: BP 103/55
--- NOTE | 2023-02-05 15:01 | Anesthesia-General Post-Op ---
MAC Patient Condition Mental Status/LOC: Same as Preop Cardiovascular: Satisfactory Nausea/Vomiting: Absent Respiratory: Satisfactory Pain: Controlled Complications: Absent Post Op Complications Complications None Follow Up Care/Instructions Patient Instructions None needed. Anesthesiology Discharge Order Discharge Order Patient was doing well after the procedure with no complaints, stable vital signs, no apparent adverse anesthesia problems. No complications reported per nursing. NATY JONES DO Feb 05, 2023 15:01
--- NOTE | 2023-02-05 18:04 | OPERATIVE REPORT ---
DATE OF SERVICE: 02/05/2023 PREOPERATIVE DIAGNOSES: Gastroesophageal reflux disease, history of polyps. POSTOPERATIVE DIAGNOSES: Antral ulcer, ascending colon polyp, internal hemorrhoids. PROCEDURES: EGD with biopsies, colonoscopy with hot biopsy polypectomy x1. SURGEON: Cecy Alarcon DO ANESTHESIA: Per MDA. ESTIMATED BLOOD LOSS: None. COMPLICATIONS: None. INDICATIONS: The patient is a 72-year-old female with GERD symptoms and history of polyps. She understands risks and benefits of procedure and wished to proceed. Consent was signed and in chart. DESCRIPTION OF PROCEDURE: The patient was taken to endoscopy suite, placed in the left lateral recumbent position. Timeout was performed. Scope was inserted in the mouth, down the esophagus, stomach and the duodenum without difficulty. No polyps, masses or ulcerations within the duodenum. Scope was slowly retracted back into the stomach, further insufflated. Antral ulcer present, biopsy of the antral ulcer was obtained. Scope was retroflexed noting no other pathology. Scope was returned to its normal position, slowly withdrawn until distal esophagus. Biopsy of GE junction was obtained. No polyps, masses or ulcerations. Scope was slowly retracted back until completely removed. Digital rectal exam was performed. No palpable polyps, masses or ulcerations. Some internal hemorrhoids. Scope was inserted in the rectum and advanced all the way to the cecum with minimal difficulty. Prep was adequate. Scope was slowly retracted back. No polyps, masses or ulcerations within the cecum. In the ascending colon, a polyp was present, which hot biopsy polypectomy was performed. Scope was then continuously retracted back. No polyps, masses or ulcerations in the remainder of the ascending, transverse, descending and sigmoid colon. Once in the rectum, scope was retroflexed noting internal hemorrhoids. Scope was returned to its normal position, slowly withdrawn until completely removed. The patient tolerated the procedure well without complications, taken to recovery room in stable condition. RECOMMENDATIONS: The patient continue on Protonix, Carafate and Pepcid at this time. We will consider repeating EGD in approximately 6 to 8 weeks to make sure it has been eradicated. Await biopsy results. The patient will need repeat colonoscopy in 5 years for colonoscopy due to history of polyps. Any issues before that, be seen at that time. The patient will follow up in 2 weeks to discuss pathology results. Job ID: [id number] DocumentID: [id number] Dictated Date: 02/05/2023 13:25:52 Veneer Sample Maker Date: 02/05/2023 18:03:00 Dictated By: CECY ALARCON DO
== END 2023-02-05 14:00 | disposition home or self-care (01) ==
LOC: ENDO 11:19
PROVIDERS: ATTEND Surgery
DX: Z12.11 Encounter for screening for malignant neoplasm of colon (principal); D12.2 Benign neoplasm of ascending colon; K21.9 Gastro-esophageal reflux disease without esophagitis; K25.9 Gastric ulcer, unspecified as acute or chronic, without hemorrhage or perforation; K64.8 Other hemorrhoids; F17.210 Nicotine dependence, cigarettes, uncomplicated

== ENCOUNTER → 2023-07-16 | Outpatient (CLI) | payer OTHER ==
--- NOTE | 2023-07-16 14:38 | Diagnostic Imaging Report ---
INDICATION: Postmenopausal state. COMPARISON: 03/24/2019. FINDINGS: AP Spine L1-L4: [BMD (g/cm2): 1.102] [T-Score: -0.8] [Z-Score: 0.6] [BMD Previous: 1.063] [BMD % Change: 3.7*] LT Hip Neck: [BMD (g/cm2): NA] [T-Score: NA] [Z-Score: NA] LT Hip Total: [BMD (g/cm2):NA] [T-Score:NA] [Z-Score: NA] [BMD Previous: NA] [BMD % Change: NA] RT Hip Neck: [BMD (g/cm2):NA] [T-Score:NA] [Z-Score:NA] RT Hip Total: [BMD (g/cm2):NA] [T-score:NA] [Z-Score:NA] [BMD Previous:NA] [BMD % Change:NA] Radius 33%: T-score: -4.7, Z-score: -2.8, bone mineral density: 0.471 Radius UD: T-score: -3.7, Z-score: -1.8, bone mineral density: 0.301. *Indicates significant change from prior examination based on 95% confidence level. World Health Organization criteria for BMD interpretation classify patients as Normal (T-score at or above -1.0), Osteopenic (T-score between -1.0 and -2.5) or Osteoporotic (T-score at or below -2.5). LIMITATIONS AND MODIFICATION: The bilateral hips are not evaluated secondary to postsurgical changes. IMPRESSION: 1. Osteoporosis. 2. Bone mineral density within the lumbar spine has significantly increased since the prior examination in 2019. 3. See below National Osteoporosis Foundation guidelines on when to potentially initiate pharmacologic therapy. Based on the National Osteoporosis Foundation Guidelines, pharmacologic treatment should be initiated in any of the following, unless clinical conditions suggest otherwise: * Any patient with prior fragility fracture of the hip or vertebrae. A spine fracture indicates 5X risk for subsequent spine fracture and 2X risk for subsequent hip fracture. * Osteoporosis (T-score <-2.5). * Postmenopausal women and men age 50 and older with low bone mass/osteopenia (T-score between -1.0 and -2.5) by DXA and 10-year major osteoporotic fracture greater than 20% or a 10-year probability of hip fracture greater than 3%. These fracture risks are supplied above in the FRAX score, if applicable. * Clinician judgement and/or patient preferences may indicate treatment for people with 10-year fracture probabilities above or below these levels. Dictated by: Dictated on workstation # [id number]
== END ==
LOC: RAD 08:31 → MERGE 09:30
PROVIDERS: ATTEND Internal Medicine
DX: M81.0 Age-related osteoporosis without current pathological fracture (principal); Z78.0 Asymptomatic menopausal state
CPT/HCPCS: 77080

== ENCOUNTER → 2023-09-10 | Outpatient (CLI) | payer OTHER ==
--- NOTE | 2023-09-10 12:48 | Diagnostic Imaging Report ---
PROCEDURE: US Gallbladder. TECHNIQUE: Multiple real-time grayscale images were obtained over the right upper quadrant in various projections. INDICATION: Postprandial right upper quadrant abdominal pain. COMPARISON: CT dated 08/10/2020 FINDINGS: The liver is normal in size, shape and echo texture. There are no focal lesions. No intra or extrahepatic biliary dilatation is present. The common bile duct is not dilated and measures 4 mm. There is no evidence of cholelithiasis, gallbladder wall thickening, or pericholecystic fluid. The visualized portions of the head and proximal body of the pancreas are within normal limits. The distal body and tail of the pancreas are not visualized due to overlying bowel gas. There is no ascites. Right kidney measures 10.8 cm in length. There is moderate hydronephrosis of uncertain etiology. No calculi or suspicious solid masses are identified. The visualized portions of the IVC and aorta are normal. IMPRESSION: 1. No cholelithiasis or sonographic evidence of acute cholecystitis. 2. Moderate right-sided hydronephrosis of uncertain etiology. Correlation with CT is advised. Dictated by: Dictated on workstation # [id number]
== END ==
LOC: RAD 09:31
PROVIDERS: ATTEND Surgery
DX: N13.30 Unspecified hydronephrosis (principal)
CPT/HCPCS: 76705